=== PATIENT | male | born 1975 | race Caucasian/White ===

== ENCOUNTER 2018-10-11 20:07 | Inpatient (IN) | payer SELFPAY ==
[~2018-10-11] VITALS: Ht 185.4 cm; Wt 75.0 kg
--- NOTE | 2018-10-11 21:33 | PHYS DOC ---
Past Medical History Past Medical History: No Pertinent History (ESTELA HURST APRN) Past Surgical History: No Surgical History (ESTELA HURST APRN) Alcohol Use: Heavy Additional Information: 2 BEER A DAY Drug Use: Marijuana (ESTELA HURST APRN) Adult General Chief Complaint Chief Complaint: HAND PROBLEM HPI HPI Patient is a 42 year old male presents for evaluation of right middle finger swelling, decreased range of motion and pain for 2 days. 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 He states no high pressured airgun's used for painting. Denies any injury that he is aware of to the hand or finger. He reports the swelling has worsened over the last 24 hours and now he is unable to move the finger. He did take a callus off of the volar surface of the finger last night trying to relieve the pressure and pain. Since related of his last tetanus immunization. (ESTELA HURST APRN) Review of Systems Review of Systems Constitutional: Denies fever or chills [] Eyes: Denies change in visual acuity, redness, or eye pain [] HENT: Denies nasal congestion or sore throat [] Respiratory: Denies cough or shortness of breath [] Cardiovascular: No additional information not addressed in HPI [] GI: Denies abdominal pain, nausea, vomiting, bloody stools or diarrhea [] : Denies dysuria or hematuria [] Musculoskeletal: Denies back pain or joint pain [] Integument: Denies rash or skin lesions [] Neurologic: Denies headache, focal weakness or sensory changes [] Endocrine: Denies polyuria or polydipsia [] All other systems were reviewed and found to be within normal limits, except as documented in this note. (ESTELA HURST APRN) Current Medications Current Medications Current Medications Medications (Trade) Dose Ordered Sig/Yoshi Start Time Stop Time Status Last Admin Dose Admin Vancomycin HCl 250 ml @ 250 mls/hr 1X ONCE 10/11/18 21:45 10/11/18 22:44 UNV (DEVON LEDESMA DO) Physical Exam Physical Exam Constitutional: Well developed, well nourished, no acute distress, non-toxic appearance. [] Cardiovascular:Heart rate regular rhythm, no murmur [] Lungs & Thorax: Bilateral breath sounds clear to auscultation [] Abdomen: Bowel sounds normal, soft, no tenderness, no masses, no pulsatile masses. [] Skin: Warm, dry, no erythema, no rash. [] Back: No tenderness, no CVA tenderness. [] Extremities: Right middle finger swelling, pain, minimal range of motion, increased pain c passive ROM[] Neurologic: Alert and oriented X 3, normal motor function, normal sensory function, no focal deficits noted. [] Psychologic: Affect normal, judgement normal, mood normal. [] (ESTELA HURST APRN) Physical Exam Constitutional: Well developed, well nourished, uncomfortable, non-toxic appearance. [] Skin: Warm, dry, no erythema, no rash. [] Extremities: Significant right middle finger edema, held in flexion, exquisite tenderness on range of motion both active and passive ([facility]) Current Patient Data Vital Signs Vital Signs Date Time Temp Pulse Resp B/P (MAP) Pulse Ox O2 Delivery O2 Flow Rate FiO2 10/11/18 21:21 98.7 107 18 159/97 (117) 98 Room Air 98.7 ([facility]) Lab Values Laboratory Tests Test 10/11/18 22:00 White Blood Count 12.5 x10^3/uL (4.0-11.0) H Red Blood Count 4.71 x10^6/uL (4.30-5.70) Hemoglobin 14.4 g/dL (13.0-17.5) Hematocrit 42.9 % (39.0-53.0) Mean Corpuscular Volume 91 fL (79-100) Mean Corpuscular Hemoglobin 31 pg (25-35) Mean Corpuscular Hemoglobin Concent 34 g/dL (31-37) Red Cell Distribution Width 12.9 % (11.5-14.5) Platelet Count 347 x10^3/uL (140-400) Neutrophils (%) (Auto) 75 % (31-73) H Lymphocytes (%) (Auto) 16 % (24-48) L Monocytes (%) (Auto) 6 % (0-9) Eosinophils (%) (Auto) 1 % (0-3) Basophils (%) (Auto) 1 % (0-3) Neutrophils # (Auto) 9.4 x10^3uL (1.8-7.7) H Lymphocytes # (Auto) 2.0 x10^3/uL (1.0-4.8) Monocytes # (Auto) 0.8 x10^3/uL (0.0-1.1) Eosinophils # (Auto) 0.2 x10^3/uL (0.0-0.7) Basophils # (Auto) 0.2 x10^3/uL (0.0-0.2) Sodium Level 140 mmol/L (136-145) Potassium Level 3.6 mmol/L (3.5-5.1) Chloride Level 102 mmol/L (98-107) Carbon Dioxide Level 31 mmol/L (21-32) Anion Gap 7 (6-14) Blood Urea Nitrogen 22 mg/dL (8-26) Creatinine 1.3 mg/dL (0.7-1.3) Estimated GFR (Cockcroft-Gault) 60.2 Glucose Level 88 mg/dL (70-99) Lactic Acid Level 1.0 mmol/L (0.4-2.0) Calcium Level 9.2 mg/dL (8.5-10.1) Total Bilirubin 0.2 mg/dL (0.2-1.0) Direct Bilirubin 0.1 mg/dL (0.0-0.2) Aspartate Amino Transferase (AST) 19 U/L (15-37) Alanine Aminotransferase (ALT) 23 U/L (16-63) Alkaline Phosphatase 97 U/L (46-116) Total Protein 7.2 g/dL (6.4-8.2) Albumin 3.4 g/dL (3.4-5.0) Laboratory Tests 10/11/18 22:00 Laboratory Tests 10/11/18 22:00 Microbiology 10/11/18 Blood Culture - Preliminary, Resulted NO GROWTH AFTER 2 DAYS (DEVON LEDESMA DO) Lab Values Laboratory Tests Test 10/11/18 22:00 White Blood Count 12.5 x10^3/uL (4.0-11.0) H Red Blood Count 4.71 x10^6/uL (4.30-5.70) Hemoglobin 14.4 g/dL (13.0-17.5) Hematocrit 42.9 % (39.0-53.0) Mean Corpuscular Volume 91 fL (79-100) Mean Corpuscular Hemoglobin 31 pg (25-35) Mean Corpuscular Hemoglobin Concent 34 g/dL (31-37) Red Cell Distribution Width 12.9 % (11.5-14.5) Platelet Count 347 x10^3/uL (140-400) Neutrophils (%) (Auto) 75 % (31-73) H Lymphocytes (%) (Auto) 16 % (24-48) L Monocytes (%) (Auto) 6 % (0-9) Eosinophils (%) (Auto) 1 % (0-3) Basophils (%) (Auto) 1 % (0-3) Neutrophils # (Auto) 9.4 x10^3uL (1.8-7.7) H Lymphocytes # (Auto) 2.0 x10^3/uL (1.0-4.8) Monocytes # (Auto) 0.8 x10^3/uL (0.0-1.1) Eosinophils # (Auto) 0.2 x10^3/uL (0.0-0.7) Basophils # (Auto) 0.2 x10^3/uL (0.0-0.2) Laboratory Tests 10/11/18 22:00 (ESTELA HURST APRN) EKG EKG [] (ESTELA HURST APRN) Radiology/Procedures Radiology/Procedures [] (ESTELA HURST APRN) Radiology/Procedures PROCEDURE: HAND RIGHT 3V HAND RIGHT 3V History: RIGHT 3RD DIGIT SWELLING, PAIN X3 DAYS. NO KNOWN INJURY. There is soft tissue swelling of the third finger. No evidence of aggressive bone destruction or acute fracture. Joint spaces and alignment appear intact. IMPRESSION: No evidence of acute fracture or dislocation. Soft tissue swelling of the third finger, consider inflammatory or infectious etiology. Electronically signed by: Devon Ramos MD (10/11/2018 10:55 PM) [facility] (DEVON LEDESMA DO) Course & Med Decision Making Course & Med Decision Making Pertinent Labs and Imaging studies reviewed. (See chart for details) [Spoke with Dr. Ellington, discussed my concerns for tenosynovitis, he would like to have patient admitted to hospitalist, he will take patient to the OR tomorrow, nothing by mouth after midnight, ID consult. Patient agrees with this plan. I spoke with Dr. Olsen who accepts admission] Dr. Ledesma also examined above patient and agrees with plan of care. (ESTELA HURST APRN) Dragon Disclaimer Dragon Disclaimer This electronic medical record was generated, in whole or in part, using a voice recognition dictation system. (ESTELA HURST APRN) Departure Departure Impression: Primary Impression: Tenosynovitis of finger Disposition: ADMITTED INPATIENT Admitting Physician: Markus Trujillo (ESTELA HURST APRN) Condition: STABLE Referrals: NO PCP (PCP) Attending Signature Attending Signature I have personally interviewed and examined the patient. All charts, labs, and imaging studies were reviewed. I agree with the PA/AUTOMOTIVE ELECTRICAL HELPER's findings, exam, and plan. (DEVON LEDESMA DO) ESTELA HURST APRN Oct 11, 2018 21:33 DEVON LEDESMA DO October 14, 2018 01:42
[2018-10-11] MEDS ORDERED: VANCOMYCIN 1GM IVPB FOR OMNI 250 ML IV ONE (21:45)
[2018-10-11] MEDS ORDERED: ONDANSETRON PF 4 MG/2 ML VIAL. IV PRN (22:15)
[2018-10-11 22:16] LABS: BASO # 0.2 x10^3/uL (0.0-0.2); BASO % 1 % (0-3); EOS # 0.2 x10^3/uL (0.0-0.7); EOS % 1 % (0-3); HEMATOCRIT 42.9 % (39.0-53.0); HEMOGLOBIN 14.4 g/dL (13.0-17.5); LYMPH % 16 % (24-48); MEAN CORPUSCULAR HEMOGLOBIN 31 pg (25-35); MEAN CORPUSCULAR HGB CONC 34 g/dL (31-37); MEAN CORPUSCULAR VOLUME 91 fL (79-100); MONO # 0.8 x10^3/uL (0.0-1.1); MONO % 6 % (0-9); NEUT # 9.4 x10^3uL (1.8-7.7); NEUT % 75 % (31-73); PLATELET COUNT 347 x10^3/uL (140-400); RED BLOOD COUNT 4.71 x10^6/uL (4.30-5.70); RED CELL DISTRIBUTION WIDTH 12.9 % (11.5-14.5); WHITE BLOOD COUNT 12.5 x10^3/uL (4.0-11.0)
[2018-10-11 22:25] LABS: CALCIUM 9.2 mg/dL (8.5-10.1); CREATININE 1.3 mg/dL (0.7-1.3); GFR 60.2; POTASSIUM 3.6 mmol/L (3.5-5.1)
[2018-10-11 22:29] LABS: ALBUMIN 3.4 g/dL (3.4-5.0); DIRECT BILIRUBIN 0.1 mg/dL (0.0-0.2); TOTAL BILIRUBIN 0.2 mg/dL (0.2-1.0); TOTAL PROTEIN 7.2 g/dL (6.4-8.2)
[2018-10-11] MEDS ORDERED: cefTRIAXone IV Push 1 GM VIAL. IVP ONE (22:30)
[2018-10-11] MEDS ORDERED: MORPHINE SULFATE 4 MG/ML VIAL. IV ONE (22:30)
[2018-10-11] MEDS ORDERED: DIPHTH,PERTUSS(ACELL),TET TOX 0.5 ML DISP.SYRIN. VAX IM ONE (22:30)
--- NOTE | 2018-10-11 22:58 | RAD ---
HAND RIGHT 3V History: RIGHT 3RD DIGIT SWELLING, PAIN X3 DAYS. NO KNOWN INJURY. There is soft tissue swelling of the third finger. No evidence of aggressive bone destruction or acute fracture. Joint spaces and alignment appear intact. IMPRESSION: No evidence of acute fracture or dislocation. Soft tissue swelling of the third finger, consider inflammatory or infectious etiology. Electronically signed by: Devon Ramos MD (10/11/2018 10:55 PM) [facility]
[2018-10-11] MEDS ORDERED: VANCOMYCIN 1.75 GM in IV NORMAL SALINE 500ML BAG 500 ML IV ONE (23:00)
[2018-10-11 23:35] VITALS: BP 169/115
[2018-10-12] MEDS: MORPHINE SULFATE 4 MG/ML VIAL. IV PRN ×4 (00:32→19:26)
[2018-10-12] MEDS: VANCOMYCIN PER PHARMACY MC PRN ×2 (01:55→02:48)
--- NOTE | 2018-10-12 01:56 | NUR ---
Pharmacy Vancomycin Dosing Note S:Consulted to monitor and dose vancomycin started 10/11/18. O:SALVADOR MENDOZA is a 42 year old M with Cellulitis . Height: 6 feet, 1 inches Weight: 72.763729 kg [place] Body Weight: 79.90 Adjusted Body Weight: 77.02 Dosing Weight: Actual Other Antibiotics: LABS: Last BUN: 22 Last Creatinine: 1.3 Creatinine Clearance: 75 mL/min Last WBC: 12.5 Last Procalcitonin: Tmax (past 24 hours): Microbiology: I/O: Drug Levels: Last level: on at Last dose given 10/11/18 at 2300 Vancomycin Dosing: Loading Dose: 1750 mg x1 Dosing Weight: Actual Target Trough: 10-20 A: Based on: WT AND CRCL P: 1. Begin Vancomycin 1000 mg IV q12h 2. Follow up Trough level on 10/13/18 at 1030 3. Pharmacy will continue to monitor, follow and adjust therapy as needed. JONAH ANTUNEZ RPH, 10/12/18 0156 Signed: 10/12/18 at 0156 by JONAH ANTUNEZ RPH PHA
[2018-10-12 02:57] VITALS: BP 138/93
--- NOTE | 2018-10-12 03:59 | NUR ---
The patient, SALVADOR MENDOZA, 42 y/o, M admitted by ROCIO BELCHER MD, was given written information regarding hospital policies, unit procedures and contact persons. Valuables were checked and left with pt .
[2018-10-12 07:00] VITALS: BP 142/90
[2018-10-12] MEDS ORDERED: DEXAMETHASONE SOD PHOS 4 MG/ML VIAL ONE (10:22)
[2018-10-12] MEDS ORDERED: fentaNYL PF VIAL 100 MCG/2 ML VIAL ONE (10:22)
[2018-10-12] MEDS ORDERED: ONDANSETRON PF 4 MG/2 ML VIAL. ONE (10:22)
[2018-10-12] MEDS ORDERED: PROPOFOL 20 ML IV ONE (10:22)
[2018-10-12] MEDS ORDERED: MIDAZOLAM HCL/PF 2 MG/2 ML VIAL. ONE (10:22)
[2018-10-12 11:00] VITALS: BP 138/67
[2018-10-12] MEDS: VANCOMYCIN 1 GM in IV NORMAL SALINE 250ML 250 ML IV SCH ×2 (11:00→23:39)
--- NOTE | 2018-10-12 12:41 | PDOC1 ---
History and Physical Date of Admission Date of Admission DATE: 10/12/18 TIME: 12:41 Identification/Chief Complaint Chief Complaint SEEN IN ER, 42 year old male presents for evaluation of right middle finger swelling, decreased range of motion and pain for 2 days. 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 Denies any injury that he is aware of to the hand or finger. He reports the swelling has worsened over the last 24 hours and now he is unable to move the finger. He did take a callus off of the volar surface of the finger 10/10 Past Medical History Past Medical History Past Medical History Past Medical History Past Medical History: No Pertinent History Past Surgical History: No Surgical History Alcohol Use: Heavy Additional Information: 2 BEER A DAY Drug Use: Marijuana FAMILY HX ALCOHOL ABUSE POS SMOKES 1 PPD Past Surgical History Past Surgical History: No pertinent history Family History Family History: Alcohol Abuse Social History Smoke: 1 pack per day ALCOHOL: social Drugs: Marijuana Current Problem List Problem List Problems Medical Problems: (1) Tenosynovitis of finger Status: Acute Current Medications Current Medications Current Medications Ceftriaxone Sodium (Rocephin) 1 gm 1X ONCE IVP Last administered on 10/11/18at 22:31; Start 10/11/18 at 22:30; Stop 10/11/18 at 22:31; Status DC Vancomycin HCl 250 ml @ 250 mls/hr 1X ONCE IV ; Start 10/11/18 at 21:45; Stop 10/11/18 at 22:44; Status UNV Diphtheria/ Tetanus/Acell Pertussis (Boostrix) 0.5 ml ONCE ONCE VAX IM Last administered on 10/11/18at 22:34; Start 10/11/18 at 22:30; Stop 10/11/18 at 22:31; Status DC Morphine Sulfate (Morphine Sulfate) 4 mg 1X ONCE IV Last administered on 10/11/18at 22:31; Start 10/11/18 at 22:30; Stop 10/11/18 at 22:31; Status DC Ondansetron HCl (Zofran) 4 mg PRN Q8HRS PRN IV NAUSEA/VOMITING 1ST CHOICE Last administered on 10/11/18at 22:30; Start 10/11/18 at 22:15; Stop 10/12/18 at 22:14 Morphine Sulfate (Morphine Sulfate) 4 mg PRN Q2HR PRN IV SEVERE PAIN Last administered on 10/12/18at 09:43; Start 10/11/18 at 22:15; Stop 10/12/18 at 22:14 Vancomycin HCl 1.75 gm/Sodium Chloride 500 ml @ 250 mls/hr 1X ONCE IV Last administered on 10/11/18at 22:35; Start 10/11/18 at 23:00; Stop 10/12/18 at 00:59; Status DC Vancomycin HCl (Vanco Per Pharmacy) 1 each PRN DAILY PRN MC SEE COMMENTS Last administered on 10/12/18at 02:48; Start 10/11/18 at 22:30 Vancomycin HCl 1 gm/Sodium Chloride 250 ml @ 250 mls/hr Q12H IV Last administered on 10/12/18at 11:00; Start 10/12/18 at 11:00 Vancomycin HCl (Vancomycin Trough Level) 1 each 1X ONCE MC ; Start 10/13/18 at 10:30; Stop 10/13/18 at 10:31 Fentanyl Citrate (Fentanyl 2ml Vial) 100 mcg STK-MED ONCE .ROUTE ; Start 10/12/18 at 10:22; Stop 10/12/18 at 10:23; Status DC Midazolam HCl (Versed) 2 mg STK-MED ONCE .ROUTE ; Start 10/12/18 at 10:22; Stop 10/12/18 at 10:23; Status DC Propofol 20 ml @ As Directed STK-MED ONCE IV ; Start 10/12/18 at 10:22; Stop 10/12/18 at 10:23; Status DC Dexamethasone Sodium Phosphate (Decadron) 4 mg STK-MED ONCE .ROUTE ; Start 10/12/18 at 10:22; Stop 10/12/18 at 10:23; Status DC Ondansetron HCl (Zofran) 4 mg STK-MED ONCE .ROUTE ; Start 10/12/18 at 10:22; Stop 10/12/18 at 10:23; Status DC Allergies Allergies: Coded Allergies: No Known Drug Allergies (Unverified , 10/11/18) ROS Review of System Review of Systems Review of Systems Constitutional: Denies fever or chills [] Eyes: Denies change in visual acuity, redness, or eye pain [] HENT: Denies nasal congestion or sore throat [] Respiratory: Denies cough or shortness of breath [] Cardiovascular: No additional information not addressed in HPI [] GI: Denies abdominal pain, nausea, vomiting, bloody stools or diarrhea [] : Denies dysuria or hematuria [] Musculoskeletal: Denies back pain or joint pain [] Integument: Denies rash or skin lesions [] Neurologic: Denies headache, focal weakness or sensory changes [] Endocrine: Denies polyuria or polydipsia [] 14 PT systems were reviewed and found to be within normal limits, except as documented . Respiratory: No: Cough, Hemoptysis, Orthopnea, Pleuritic Pain, Shortness of breath, SOB with excertion, Sputum Changes, Stridor, Tachypnea, Wheezing, Other Cardiovascular: No Chest Pain, No Palpitations, No Orthopnea, No Paroxysmal Noc. Dyspnea, No Edema, No Lt Headedness, No Other Gastrointestinal: No Nausea, No Vomiting, No Abdominal Pain, No Diarrhea, No Constipation, No Melena, No Hematochezia, No Other Genitourinary: No Dysuria, No Frequency, No Incontinence, No Hematuria, No Retention, No Discharge, No Urgency, No Pain, No Flank Pain, No Other, No , No , No , No , No , No , No Musculoskeletal: Yes Joint Pain, Yes Joint Stiffness Neurological: No Behavorial Changes, No Bowel/Bladder ControlChng, No Confusion, No Dizziness, No Gait Disturbance, No Headaches, No Impaired Coord/balance, No Memory Loss, No Numbness/Tingling, No Seizures, No Speech Problems, No Tremors, No Visual Changes, No Weakness, No Other Skin: Yes Skin Lesion Changes Physical Exam Physical Exam Physical Exam Physical Exam Constitutional: Well developed, well nourished, MILD acute distress, non-toxic appearance. [] Cardiovascular:Heart rate regular rhythm, no murmur [] Lungs & Thorax: Bilateral breath sounds clear to auscultation [] Abdomen: Bowel sounds normal, soft, no tenderness, no masses, no pulsatile masses. [] Skin: Warm, dry, no erythema, no rash. [] Back: No tenderness, no CVA tenderness. [] Extremities: Right middle finger swelling, pain, minimal range of motion, increased pain c passive ROM[] Neurologic: Alert and oriented X 3, normal motor function, normal sensory function, no focal deficits noted. [] Psychologic: Affect normal, judgement normal, mood normal. [] General: Alert, Oriented X3, Cooperative, mild distress HEENT: Atraumatic, PERRLA, EOMI, Mucous membr. moist/pink Lungs: Clear to auscultation, Normal air movement Heart: S1S2, RRR, no gallops, no murmurs Breasts: Not examined Abdomen: Normal bowel sounds, Soft Rectal Exam: not examined Extremities: No cyanosis Neuro: Normal speech, Sensation intact, Cranial nerves 3-12 NL Psych/Mental Status: Mental status NL, Mood NL Vitals Vitals Vital Signs Date Time Temp Pulse Resp B/P (MAP) Pulse Ox O2 Delivery O2 Flow Rate FiO2 10/12/18 12:37 99.1 76 16 151/82 97 Room Air 99.1 Labs Labs Laboratory Tests Test 10/11/18 22:00 White Blood Count 12.5 x10^3/uL (4.0-11.0) Red Blood Count 4.71 x10^6/uL (4.30-5.70) Hemoglobin 14.4 g/dL (13.0-17.5) Hematocrit 42.9 % (39.0-53.0) Mean Corpuscular Volume 91 fL (79-100) Mean Corpuscular Hemoglobin 31 pg (25-35) Mean Corpuscular Hemoglobin Concent 34 g/dL (31-37) Red Cell Distribution Width 12.9 % (11.5-14.5) Platelet Count 347 x10^3/uL (140-400) Neutrophils (%) (Auto) 75 % (31-73) Lymphocytes (%) (Auto) 16 % (24-48) Monocytes (%) (Auto) 6 % (0-9) Eosinophils (%) (Auto) 1 % (0-3) Basophils (%) (Auto) 1 % (0-3) Neutrophils # (Auto) 9.4 x10^3uL (1.8-7.7) Lymphocytes # (Auto) 2.0 x10^3/uL (1.0-4.8) Monocytes # (Auto) 0.8 x10^3/uL (0.0-1.1) Eosinophils # (Auto) 0.2 x10^3/uL (0.0-0.7) Basophils # (Auto) 0.2 x10^3/uL (0.0-0.2) Sodium Level 140 mmol/L (136-145) Potassium Level 3.6 mmol/L (3.5-5.1) Chloride Level 102 mmol/L (98-107) Carbon Dioxide Level 31 mmol/L (21-32) Anion Gap 7 (6-14) Blood Urea Nitrogen 22 mg/dL (8-26) Creatinine 1.3 mg/dL (0.7-1.3) Estimated GFR (Cockcroft-Gault) 60.2 Glucose Level 88 mg/dL (70-99) Lactic Acid Level 1.0 mmol/L (0.4-2.0) Calcium Level 9.2 mg/dL (8.5-10.1) Total Bilirubin 0.2 mg/dL (0.2-1.0) Direct Bilirubin 0.1 mg/dL (0.0-0.2) Aspartate Amino Transf (AST/SGOT) 19 U/L (15-37) Alanine Aminotransferase (ALT/SGPT) 23 U/L (16-63) Alkaline Phosphatase 97 U/L (46-116) Total Protein 7.2 g/dL (6.4-8.2) Albumin 3.4 g/dL (3.4-5.0) Laboratory Tests Test 10/11/18 22:00 White Blood Count 12.5 x10^3/uL (4.0-11.0) Red Blood Count 4.71 x10^6/uL (4.30-5.70) Hemoglobin 14.4 g/dL (13.0-17.5) Hematocrit 42.9 % (39.0-53.0) Mean Corpuscular Volume 91 fL (79-100) Mean Corpuscular Hemoglobin 31 pg (25-35) Mean Corpuscular Hemoglobin Concent 34 g/dL (31-37) Red Cell Distribution Width 12.9 % (11.5-14.5) Platelet Count 347 x10^3/uL (140-400) Neutrophils (%) (Auto) 75 % (31-73) Lymphocytes (%) (Auto) 16 % (24-48) Monocytes (%) (Auto) 6 % (0-9) Eosinophils (%) (Auto) 1 % (0-3) Basophils (%) (Auto) 1 % (0-3) Neutrophils # (Auto) 9.4 x10^3uL (1.8-7.7) Lymphocytes # (Auto) 2.0 x10^3/uL (1.0-4.8) Monocytes # (Auto) 0.8 x10^3/uL (0.0-1.1) Eosinophils # (Auto) 0.2 x10^3/uL (0.0-0.7) Basophils # (Auto) 0.2 x10^3/uL (0.0-0.2) Sodium Level 140 mmol/L (136-145) Potassium Level 3.6 mmol/L (3.5-5.1) Chloride Level 102 mmol/L (98-107) Carbon Dioxide Level 31 mmol/L (21-32) Anion Gap 7 (6-14) Blood Urea Nitrogen 22 mg/dL (8-26) Creatinine 1.3 mg/dL (0.7-1.3) Estimated GFR (Cockcroft-Gault) 60.2 Glucose Level 88 mg/dL (70-99) Lactic Acid Level 1.0 mmol/L (0.4-2.0) Calcium Level 9.2 mg/dL (8.5-10.1) Total Bilirubin 0.2 mg/dL (0.2-1.0) Direct Bilirubin 0.1 mg/dL (0.0-0.2) Aspartate Amino Transf (AST/SGOT) 19 U/L (15-37) Alanine Aminotransferase (ALT/SGPT) 23 U/L (16-63) Alkaline Phosphatase 97 U/L (46-116) Total Protein 7.2 g/dL (6.4-8.2) Albumin 3.4 g/dL (3.4-5.0) Images Images HAND RIGHT 3V History: RIGHT 3RD DIGIT SWELLING, PAIN X3 DAYS. NO KNOWN INJURY. There is soft tissue swelling of the third finger. No evidence of aggressive bone destruction or acute fracture. Joint spaces and alignment appear intact. IMPRESSION: No evidence of acute fracture or dislocation. Soft tissue swelling of the third finger, consider inflammatory or infectious etiology. Electronically signed by: Devon Ramos MD (10/11/2018 10:55 PM) [facility] VTE Prophylaxis Ordered VTE Prophylaxis Devices: Yes VTE Pharmacological Prophylaxi: Yes Assessment/Plan Assessment/Plan IMPRESSION Acute tenosynovitis No evidence of acute fracture or dislocation. Soft tissue swelling of the third finger, consider inflammatory or infectious etiology. tobacco abuse ALCOHOL ABUSE HX plan iv antibiotics ortho consult npo iv vancomycin iv rocephin ID CONSULT IV FLUID SUPPORT ALCOHOL WITHDRAWAL PRECAUTIONS low risk for post-op complications dvt prophylaxis 76 MIN PT EXAM, CHART REVIEW, > 50% OF TIME SPENT WITH EXAM, CHART REVIEW, PT CARE CFOORDINATION ROCIO BELCHER MD Oct 12, 2018 12:41
[2018-10-12] MEDS ORDERED: IV RINGERS,LACTATED 1000ML 1,000 ML IV SCH (12:50)
[2018-10-12] MEDS ORDERED: HYDROmorphone 2 MG/ML VIAL IV PRN (13:00)
[2018-10-12] MEDS ORDERED: fentaNYL PF VIAL 100 MCG/2 ML VIAL IV PRN ×2 (13:00)
[2018-10-12] MEDS ORDERED: ONDANSETRON PF 4 MG/2 ML VIAL. IV PRN (13:00)
[2018-10-12] MEDS ORDERED: PROCHLORPERAZINE 10 MG/2 ML VIAL. IV PRN (13:00)
[2018-10-12] MEDS ORDERED: LORazepam 1 MG TABLET PO SCH (13:00)
[2018-10-12] MEDS: MULTIVIT INFUSN,ADULT 4,VIT K 10 ML, THIAMINE INJ 100 MG, FOLIC ACID INJ 1 MG in IV NOR... IV SCH (14:00)
[2018-10-12] MEDS: MORPHINE SULFATE 2 MG/ML VIAL. IV PRN ×2 (14:32→14:41)
--- NOTE | 2018-10-12 16:31 | PDOC4 ---
Operative Note Operative Note Date of surgery: 10/12/2018 Preoperative diagnosis: Flexor tenosynovitis right middle finger Postoperative diagnosis: Same Operative procedure: Irrigation debridement right middle finger flexor tenosynovitis Surgeon: Rakel Anesthesia: Gen. Estimated blood loss: Less than 5 mL Locations: None Intraoperative cultures sent from flexor tendon purulent drainage Operative indications: Please see my preoperative consultation for detailed operative indications. Operative text: Patient was identified procedure verified patient placed in the supine position on the operating table. After adequate amounts of general anesthesia were administered the right upper extremity was prepped and draped in standard sterile fashion on a hand table. After timeout was performed patient procedure identified and verified and incision was made in the proximal palmar crease overlying the right middle finger flexor tendon sheath which was opened and purulent drainage expressed and cultured. A1 nishant was then released and any purulent drainage suctioned away. An oblique incision was made over the middle phalange and flexor tendon sheath was opened to allow a Jelco 16-gauge IV to irrigate the flexor tendon sheath under pressure with a total of several 60 mL cc syringe. Normal saline solution until area came back non-cloudy. Irrigation was carried out distally as well to involve the entire flexor tendon sheath which was noted to move fully. Further thorough irrigation carried out of both sites with normal saline solution leading points controlled by electrocautery iodoform packing was placed after loose closure accomplished with 3-0 nylon suture at both sites. Sterile dressings were applied patient was returned to recovery room in stable condition having tolerated procedure well SHON GARY MD Oct 12, 2018 16:31
[2018-10-12 19:00] VITALS: BP 122/80
[2018-10-12 19:59] LABS: ALBUMIN 3.1 g/dL (3.4-5.0); DIRECT BILIRUBIN 0.1 mg/dL (0.0-0.2); TOTAL BILIRUBIN 0.4 mg/dL (0.2-1.0); TOTAL PROTEIN 7.4 g/dL (6.4-8.2)
[2018-10-12 23:00] VITALS: BP 137/97
[2018-10-12] MEDS ORDERED: diphenhydrAMINE HCL 25 MG CAPSULE PO PRN (23:15)
[2018-10-12] MEDS: QUEtiapine 25 MG TABLET. PO PRN (23:37)
--- NOTE | 2018-10-13 00:09 | NUR ---
At approximally 2230 pt began to cough and become highly agitated. Stated "not work a fuck" when asked how he was doing. Called physician to incite [facility] protocol. Pt drinks 2 drinks daily after work and says on off days the number is much higher. Ativan and quetiapine were administered. Pt is resting in bed and sleeping. Will continue to monitor.
--- NOTE | 2018-10-13 00:46 | CONS ---
DATE OF CONSULTATION: 10/12/2018 CHIEF COMPLAINT: Right hand infection, long finger stiffness. REQUESTING PHYSICIAN: Dr. Markus Olsen. 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 He does manual labor in painting. Denies any specific injury to the right long finger, but reports increased swelling, pressure and pain and is unable to move the finger. He denies painting with any high pressure equipment or possible injection injury. He has calluses on his finger and did take a callus off the volar surface of the finger to try to relieve his pressure and pain, but it did not work. He therefore presents to the Emergency Department and hospital admission for further evaluation and treatment. Denies any pertinent past medical history or surgical history. SOCIAL HISTORY: Indicates heavy use of alcohol. Has used marijuana in the past. Otherwise, really does not smoke cigarettes. ALLERGIES: He has no known allergies. MEDICATIONS: No medications. FAMILY HISTORY: Unknown. REVIEW OF SYSTEMS: Denies any fever, chills or other pain other than in the right long finger over the past couple of days. No constitutional symptoms. PHYSICAL EXAMINATION: HEENT: Atraumatic, normocephalic. EXTREMITIES: Examination of the right upper extremity reveals severe swelling, pain and inability to move his long finger at all. It is swollen up like a sausage digit. He is very tender over the flexor tendon sheath, not over the extensor surface. Distal sensation is intact as is his capillary refill to all the fingers. Flexor profundus superficialis are intact to all the other fingers and thumb. Normal examination of the contralateral hand aside from calluses over the volar surface of both hands from his manual labor. Normal alignment, stability of bilateral shoulders and elbows. IMPRESSION: Flexor tenosynovitis, right long finger. TREATMENT PLAN: He was admitted through the Emergency Room last night and had just eaten prior to admission, was kept n.p.o. overnight, given antibiotics and Infectious Disease consult pending. I went over with him the concern for quickly potentially spreading infection in the flexor tendon sheath and the need to open this up surgically, wash it out, get him on appropriate antibiotics, cultures and make sure this is going in the right direction to avoid it spreading and getting worse. He is aware that this may cause him an ongoing pain and stiffness due to scarring in the tendon sheath because of the problems with infection and it may require even multiple operations if he is not responding immediately to the initial washout and antibiotics. All his questions were answered. We are going to proceed with surgical evaluation and treatment, which will occur as soon as operating room availability this morning. SHON GARY MD DR: KOBE/sara JOB#: [id number] / [id number]
--- NOTE | 2018-10-13 01:58 | CONS ---
DATE OF CONSULTATION: 10/12/2018 REQUESTING PHYSICIAN: Markus Olsen M.D. REASON FOR CONSULTATION: Tenosynovitis. HISTORY OF PRESENT ILLNESS: This is a 42-year-old gentleman who came in with right middle finger swelling and pain that started about 2-3 days ago. 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 The patient denies any fever. Denies any nausea, vomiting, diarrhea, chest pain, shortness of breath, abdominal pain, urinary symptoms or bowel symptoms. PAST MEDICAL HISTORY: Unremarkable, he says. SOCIAL HISTORY: Positive for smoking, positive for alcohol use. No drug use. ALLERGIES: No known drug allergies. CURRENT MEDICATIONS: Reviewed. REVIEW OF SYSTEMS: As per HPI; all other systems reviewed are negative. PHYSICAL EXAMINATION: GENERAL: Alert, oriented gentleman, not in any distress. VITAL SIGNS: Stable, afebrile. HEENT: NAD. NECK: Supple. No JVP, no lymphadenopathy. LUNGS: Clear. HEART: S1, S2 regular. ABDOMEN: Benign. EXTREMITIES: The patient does have green discoloration of the fingers. The middle finger is swollen and extremely tender. There is very mild pain into the palmar surface of the hand with extension of the finger. There is no pus pointing. There is no obvious open area or drainage. LABORATORY DATA: Unable to review because computers are down. IMPRESSION: 1. Right middle finger swelling and pain with infection. 2. Tenosynovitis. 3. . RECOMMENDATIONS: We would continue antibiotics for the time being. Dictation is limited by inability to see anything in the computer right now. I and D has been planned. Thank you very much, Dr. Olsen, for giving me the opportunity to participate in this patient's care. CHACORTA DIAZ MD DR: ROBIN/sara JOB#: [id number] / [id number]
[2018-10-13 07:00] VITALS: BP 139/97
[2018-10-13] MEDS: MULTIVIT INFUSN,ADULT 4,VIT K 10 ML, THIAMINE INJ 100 MG, FOLIC ACID INJ 1 MG in IV NOR... IV SCH (09:00)
[2018-10-13] MEDS ORDERED: FOLIC ACID 1 MG TABLET. PO SCH (09:00)
[2018-10-13 09:33] LABS: CREATININE 1.2 mg/dL (0.7-1.3); GFR 66.1
--- NOTE | 2018-10-13 10:41 | PDOC ---
PROGRESS NOTES History of Present Illness History of Present Illness VTE Prophylaxis Ordered VTE Prophylaxis Devices: Yes VTE Pharmacological Prophylaxi: Yes Assessment/Plan Assessment/Plan IMPRESSION Acute tenosynovitis No evidence of acute fracture or dislocation. Soft tissue swelling of the third finger, consider inflammatory or infectious etiology. tobacco abuse ALCOHOL ABUSE HX plan iv antibiotics ortho consult npo iv vancomycin iv rocephin ID CONSULT IV FLUID SUPPORT ALCOHOL WITHDRAWAL PRECAUTIONS low risk for post-op complications dvt prophylaxis 46 MIN PT EXAM, CHART REVIEW, > 50% OF TIME SPENT WITH EXAM, CHART REVIEW, PT CARE COORDINATION Vitals Vitals Vital Signs Date Time Temp Pulse Resp B/P (MAP) Pulse Ox O2 Delivery O2 Flow Rate FiO2 10/13/18 07:00 98.8 87 20 139/97 (111) 95 Room Air 98.8 10/12/18 13:52 10 Physical Exam General: Alert, Oriented X3, Cooperative, mild distress Heart: Regular rate, Normal S1, Normal S2, No murmurs Lungs: Clear Abdomen: Normal bowel sounds, Soft Extremities: No cyanosis Skin: No significant lesion Labs LABS PATIENT: SALVADOR MENDOZA ACCT: [id number] LOC: [address] [place] [address] U: [id number] AGE/SX: 42/M ROOM: [facility] RE10/11/[address]: ROCIO BELCHER MD : 1975 BED: 1 DIS: STATUS: ADM IN TLOC: SPEC #: [id number] SABRA: 10/11/18 STATUS: RES REQ #: [id number] RECD: 10/11/[address]: ESTELA HURST APRN SOURCE: BLOOD ENTR: 10/11/[address]: JOSE,STAFF [facility]: NO PCP ORDERED: BCULT Procedure Result BLOOD CULTURE Preliminary NO GROWTH AFTER 1 DAY Laboratory Tests Test 10/12/18 16:35 10/13/18 08:45 Total Bilirubin 0.4 mg/dL (0.2-1.0) Direct Bilirubin 0.1 mg/dL (0.0-0.2) Aspartate Amino Transf (AST/SGOT) 15 U/L (15-37) Alanine Aminotransferase (ALT/SGPT) 20 U/L (16-63) Alkaline Phosphatase 86 U/L (46-116) Total Protein 7.4 g/dL (6.4-8.2) Albumin 3.1 g/dL (3.4-5.0) Creatinine 1.2 mg/dL (0.7-1.3) Estimated GFR (Cockcroft-Gault) 66.1 Assessment and Plan Assessmemt and Plan Problems Medical Problems: (1) Tenosynovitis of finger Status: Acute Operative Note Operative Note Operative Note Date of surgery: 10/12/2018 Preoperative diagnosis: Flexor tenosynovitis right middle finger Postoperative diagnosis: Same Operative procedure: Irrigation debridement right middle finger flexor tenosynovitis Surgeon: Rakel Anesthesia: Gen. Estimated blood loss: Less than 5 mL Locations: None Intraoperative cultures sent from flexor tendon purulent drainage Comment Review of Relevant I have reviewed the following items rony (where applicable) has been applied. Labs Laboratory Tests Test 10/11/18 22:00 10/12/18 16:35 10/13/18 08:45 White Blood Count 12.5 x10^3/uL (4.0-11.0) Red Blood Count 4.71 x10^6/uL (4.30-5.70) Hemoglobin 14.4 g/dL (13.0-17.5) Hematocrit 42.9 % (39.0-53.0) Mean Corpuscular Volume 91 fL (79-100) Mean Corpuscular Hemoglobin 31 pg (25-35) Mean Corpuscular Hemoglobin Concent 34 g/dL (31-37) Red Cell Distribution Width 12.9 % (11.5-14.5) Platelet Count 347 x10^3/uL (140-400) Neutrophils (%) (Auto) 75 % (31-73) Lymphocytes (%) (Auto) 16 % (24-48) Monocytes (%) (Auto) 6 % (0-9) Eosinophils (%) (Auto) 1 % (0-3) Basophils (%) (Auto) 1 % (0-3) Neutrophils # (Auto) 9.4 x10^3uL (1.8-7.7) Lymphocytes # (Auto) 2.0 x10^3/uL (1.0-4.8) Monocytes # (Auto) 0.8 x10^3/uL (0.0-1.1) Eosinophils # (Auto) 0.2 x10^3/uL (0.0-0.7) Basophils # (Auto) 0.2 x10^3/uL (0.0-0.2) Sodium Level 140 mmol/L (136-145) Potassium Level 3.6 mmol/L (3.5-5.1) Chloride Level 102 mmol/L (98-107) Carbon Dioxide Level 31 mmol/L (21-32) Anion Gap 7 (6-14) Blood Urea Nitrogen 22 mg/dL (8-26) Creatinine 1.3 mg/dL (0.7-1.3) 1.2 mg/dL (0.7-1.3) Estimated GFR (Cockcroft-Gault) 60.2 66.1 Glucose Level 88 mg/dL (70-99) Lactic Acid Level 1.0 mmol/L (0.4-2.0) Calcium Level 9.2 mg/dL (8.5-10.1) Total Bilirubin 0.2 mg/dL (0.2-1.0) 0.4 mg/dL (0.2-1.0) Direct Bilirubin 0.1 mg/dL (0.0-0.2) 0.1 mg/dL (0.0-0.2) Aspartate Amino Transf (AST/SGOT) 19 U/L (15-37) 15 U/L (15-37) Alanine Aminotransferase (ALT/SGPT) 23 U/L (16-63) 20 U/L (16-63) Alkaline Phosphatase 97 U/L (46-116) 86 U/L (46-116) Total Protein 7.2 g/dL (6.4-8.2) 7.4 g/dL (6.4-8.2) Albumin 3.4 g/dL (3.4-5.0) 3.1 g/dL (3.4-5.0) Laboratory Tests Test 10/12/18 16:35 10/13/18 08:45 Total Bilirubin 0.4 mg/dL (0.2-1.0) Direct Bilirubin 0.1 mg/dL (0.0-0.2) Aspartate Amino Transf (AST/SGOT) 15 U/L (15-37) Alanine Aminotransferase (ALT/SGPT) 20 U/L (16-63) Alkaline Phosphatase 86 U/L (46-116) Total Protein 7.4 g/dL (6.4-8.2) Albumin 3.1 g/dL (3.4-5.0) Creatinine 1.2 mg/dL (0.7-1.3) Estimated GFR (Cockcroft-Gault) 66.1 Microbiology 10/11/18 Blood Culture - Preliminary, Resulted NO GROWTH AFTER 1 DAY Medications Current Medications Ceftriaxone Sodium (Rocephin) 1 gm 1X ONCE IVP Last administered on 10/11/18at 22:31; Start 10/11/18 at 22:30; Stop 10/11/18 at 22:31; Status DC Vancomycin HCl 250 ml @ 250 mls/hr 1X ONCE IV ; Start 10/11/18 at 21:45; Stop 10/11/18 at 22:44; Status UNV Diphtheria/ Tetanus/Acell Pertussis (Boostrix) 0.5 ml ONCE ONCE VAX IM Last administered on 10/11/18at 22:34; Start 10/11/18 at 22:30; Stop 10/11/18 at 22:31; Status DC Morphine Sulfate (Morphine Sulfate) 4 mg 1X ONCE IV Last administered on 10/11/18at 22:31; Start 10/11/18 at 22:30; Stop 10/11/18 at 22:31; Status DC Ondansetron HCl (Zofran) 4 mg PRN Q8HRS PRN IV NAUSEA/VOMITING 1ST CHOICE Last administered on 10/11/18at 22:30; Start 10/11/18 at 22:15; Stop 10/12/18 at 22:14; Status DC Morphine Sulfate (Morphine Sulfate) 4 mg PRN Q2HR PRN IV SEVERE PAIN Last administered on 10/12/18at 19:26; Start 10/11/18 at 22:15; Stop 10/12/18 at 22:14; Status DC Vancomycin HCl 1.75 gm/Sodium Chloride 500 ml @ 250 mls/hr 1X ONCE IV Last administered on 10/11/18at 22:35; Start 10/11/18 at 23:00; Stop 10/12/18 at 00:59; Status DC Vancomycin HCl (Vanco Per Pharmacy) 1 each PRN DAILY PRN MC SEE COMMENTS Last administered on 10/12/18at 02:48; Start 10/11/18 at 22:30 Vancomycin HCl 1 gm/Sodium Chloride 250 ml @ 250 mls/hr Q12H IV Last administered on 10/12/18at 23:39; Start 10/12/18 at 11:00 Vancomycin HCl (Vancomycin Trough Level) 1 each 1X ONCE MC ; Start 10/13/18 at 10:30; Stop 10/13/18 at 10:31; Status DC Fentanyl Citrate (Fentanyl 2ml Vial) 100 mcg STK-MED ONCE .ROUTE ; Start 10/12/18 at 10:22; Stop 10/12/18 at 10:23; Status DC Midazolam HCl (Versed) 2 mg STK-MED ONCE .ROUTE ; Start 10/12/18 at 10:22; Stop 10/12/18 at 10:23; Status DC Propofol 20 ml @ As Directed STK-MED ONCE IV ; Start 10/12/18 at 10:22; Stop 10/12/18 at 10:23; Status DC Dexamethasone Sodium Phosphate (Decadron) 4 mg STK-MED ONCE .ROUTE ; Start 10/12/18 at 10:22; Stop 10/12/18 at 10:23; Status DC Ondansetron HCl (Zofran) 4 mg STK-MED ONCE .ROUTE ; Start 10/12/18 at 10:22; Stop 10/12/18 at 10:23; Status DC Ondansetron HCl (Zofran) 4 mg PRN Q6HRS PRN IV NAUSEA/VOMITING; Start 10/12/18 at 13:00; Stop 10/13/18 at 12:59 Fentanyl Citrate (Fentanyl 2ml Vial) 25 mcg PRN Q5MIN PRN IV MILD PAIN; Start 10/12/18 at 13:00; Stop 10/13/18 at 12:59 Fentanyl Citrate (Fentanyl 2ml Vial) 50 mcg PRN Q5MIN PRN IV MODERATE TO SEVERE PAIN; Start 10/12/18 at 13:00; Stop 10/13/18 at 12:59 Morphine Sulfate (Morphine Sulfate) 1 mg PRN Q10MIN PRN IV SEVERE PAIN Last administered on 10/12/18at 14:41; Start 10/12/18 at 13:00; Stop 10/13/18 at 12:59 Ringer's Solution 1,000 ml @ 30 mls/hr Q24H IV ; Start 10/12/18 at 12:50; Stop 10/13/18 at 00:49; Status DC Hydromorphone HCl (Dilaudid) 0.5 mg PRN Q10MIN PRN IV SEV PAIN, Second choice; Start 10/12/18 at 13:00; Stop 10/13/18 at 12:59 Prochlorperazine Edisylate (Compazine) 5 mg PACU PRN PRN IV NAUSEA, MRX1; Start 10/12/18 at 13:00; Stop 10/13/18 at 12:59 Multivitamins 10 ml/Thiamine HCl 100 mg/Folic Acid 1 mg/Sodium Chloride 1,011.2 ml @ 100 mls/ hr DAILY IV Last administered on 10/12/18at 14:00; Start 10/12/18 at 14:00; Stop 10/16/18 at 19:07 Folic Acid (Folic Acid) 1 mg DAILY PO ; Start 10/13/18 at 09:00; Status UNV Lorazepam (Ativan) 2 mg Q6H PO Last administered on 10/12/18at 13:00; Start 10/12/18 at 13:00; Stop 10/13/18 at 00:32; Status DC Lorazepam (Ativan) 2 mg PRN Q1HR PRN IV For CIWA 8-14 Last administered on 10/12/18at 23:38; Start 10/12/18 at 23:15 Lorazepam (Ativan) 4 mg PRN Q1HR PRN IV For CIWA 15 or greater; Start 10/12/18 at 23:15 Diphenhydramine HCl (Benadryl) 25 mg PRN Q6HRS PRN PO ITCHING; Start 10/12/18 at 23:15 Quetiapine Fumarate (SEROquel) 50 mg PRN QHS PRN PO sleep Last administered on 10/12/18at 23:37; Start 10/12/18 at 23:15 Morphine Sulfate (Morphine Sulfate) 4 mg PRN Q2HR PRN IV SEVERE PAIN; Start 10/13/18 at 06:15 Oxycodone/ Acetaminophen (Percocet 5/325) 1 tab PRN Q4HRS PRN PO SEVERE PAIN; Start 10/13/18 at 06:15 Vitals/I & O Vital Sign - Last 24 Hours 10/12/18 10/12/18 10/12/18 10/12/18 11:00 12:37 13:37 13:37 Temp 97.8 99.1 98.6 97.8 99.1 98.6 Pulse 71 76 84 Resp 16 16 20 B/P (MAP) 138/67 (90) 151/82 115/74 Pulse Ox 100 97 99 O2 Delivery Room Air Room Air Mask Simple Mask O2 Flow Rate 10 10 10/12/18 10/12/18 10/12/18 10/12/18 13:52 14:07 14:12 14:27 Pulse 77 77 71 78 Resp 20 20 20 20 B/P (MAP) 105/66 106/65 149/97 147/79 Pulse Ox 95 95 100 96 O2 Delivery Simple Mask Room Air Room Air Room Air O2 Flow Rate 10 10/12/18 10/12/18 10/12/18 10/12/18 14:32 14:41 15:15 19:00 Temp 99.4 99.4 Pulse 95 Resp 20 20 19 20 B/P (MAP) 122/80 (94) Pulse Ox 96 98 93 95 O2 Delivery Room Air Room Air Room Air 10/12/18 10/12/18 10/12/18 10/12/18 19:26 19:56 20:00 23:00 Temp 98.6 98.6 Pulse 87 Resp 16 16 18 B/P (MAP) 137/97 (110) Pulse Ox 91 O2 Delivery Room Air Room Air 10/13/18 10/13/18 03:00 07:00 Temp 98.8 98.8 Pulse 87 Resp 20 B/P (MAP) 139/97 (111) Pulse Ox 95 O2 Delivery Room Air Intake and Output 10/12/18 10/12/18 10/13/18 14:59 22:59 06:59 Intake Total 1290 ml 240 ml 370 ml Output Total 10 ml Balance 1280 ml 240 ml 370 ml ROCIO BELCHER MD October 13, 2018 10:41
[2018-10-13 10:50] LABS: VANC TR 6.6 mcg/mL (10.0-20.0)
[2018-10-13 11:00] VITALS: BP 153/98
[2018-10-13] MEDS: VANCOMYCIN 1 GM in IV NORMAL SALINE 250ML 250 ML IV SCH ×2 (11:00→20:27)
[2018-10-13 11:01] LABS: BASO # 0.1 x10^3/uL (0.0-0.2); BASO % 0 % (0-3); EOS # 0.1 x10^3/uL (0.0-0.7); EOS % 1 % (0-3); HEMATOCRIT 40.5 % (39.0-53.0); HEMOGLOBIN 13.3 g/dL (13.0-17.5); LYMPH # 2.1 x10^3/uL (1.0-4.8); LYMPH % 15 % (24-48); MEAN CORPUSCULAR HEMOGLOBIN 30 pg (25-35); MEAN CORPUSCULAR HGB CONC 33 g/dL (31-37); MEAN CORPUSCULAR VOLUME 92 fL (79-100); MONO # 0.9 x10^3/uL (0.0-1.1); MONO % 7 % (0-9); NEUT # 10.8 x10^3uL (1.8-7.7); NEUT % 78 % (31-73); PLATELET COUNT 258 x10^3/uL (140-400); RED BLOOD COUNT 4.39 x10^6/uL (4.30-5.70); RED CELL DISTRIBUTION WIDTH 13.2 % (11.5-14.5); WHITE BLOOD COUNT 13.9 x10^3/uL (4.0-11.0)
[2018-10-13] MEDS: VANCOMYCIN PER PHARMACY MC PRN (11:06)
--- NOTE | 2018-10-13 11:06 | NUR ---
Pharmacy Vancomycin Dosing Note S: Consulted to monitor and dose vancomycin started 10/11/18. O: SALVADOR MENDOZA is a 42 year old M with cellulitis, tenosynovitis. Other Antibiotics: CTX 1g IV q24hrs LABS: Last BUN: 22 Last Creatinine: 1.2 Creatinine Clearance: 80 mL/min Last WBC: 12.5 Last Procalcitonin: - Tmax (past 24 hours): 99.4 Microbiology: BLOOD CX (10/11): NGTD I/O: 1900/output not documented; 6 voids Drug Levels: Last level: 6.6 on 10/13/18 at 1030 Last dose given 10/12/18 at 2330 Vancomycin Dosing: Dosing Weight: Actual Target Trough: 10-20 A: Patient was receiving vancomycin 1000 mg IV q12hrs. A trough of 6.6 mcg/ml is below goal range of 10-20. Patient's renal function remains stable, MD has ordered for repeat SCr to be drawn tomorrow. P: 1. Initiate Vancomycin 1250 mg IV x 1 dose, then 1000 mg IV q8h 2. Follow up trough if significant changes occur 3. Pharmacy will continue to monitor, follow and adjust therapy as needed. RAUL KLINE [facility], 10/13/18 [id number]
--- NOTE | 2018-10-13 11:26 | PDOC ---
Infectious Disease Note Subjective Subjective pt is sleepy ROS ROS no n/v/d/sob Vital Sign Vital Signs Vital Signs Date Time Temp Pulse Resp B/P (MAP) Pulse Ox O2 Delivery O2 Flow Rate FiO2 10/13/18 08:00 Room Air 10/13/18 07:00 98.8 87 20 139/97 (111) 95 98.8 10/12/18 13:52 10 Physical Exam PHYSICAL EXAM GENERAL: Alert, oriented gentleman, not in any distress. VITAL SIGNS: Stable, afebrile. HEENT: NAD. NECK: Supple. No JVP, no lymphadenopathy. LUNGS: Clear. HEART: S1, S2 regular. ABDOMEN: Benign. EXTREMITIES: The patient does have green discoloration of the fingers. The middle finger is swollen and extremely tender. There is very mild pain into the palmar surface of the hand with extension of the finger. There is no pus pointing. There is no obvious open area or drainage. Labs Lab Laboratory Tests Test 10/12/18 16:35 10/13/18 08:45 10/13/18 10:15 Total Bilirubin 0.4 mg/dL (0.2-1.0) Direct Bilirubin 0.1 mg/dL (0.0-0.2) Aspartate Amino Transf (AST/SGOT) 15 U/L (15-37) Alanine Aminotransferase (ALT/SGPT) 20 U/L (16-63) Alkaline Phosphatase 86 U/L (46-116) Total Protein 7.4 g/dL (6.4-8.2) Albumin 3.1 g/dL (3.4-5.0) White Blood Count 13.9 x10^3/uL (4.0-11.0) Red Blood Count 4.39 x10^6/uL (4.30-5.70) Hemoglobin 13.3 g/dL (13.0-17.5) Hematocrit 40.5 % (39.0-53.0) Mean Corpuscular Volume 92 fL (79-100) Mean Corpuscular Hemoglobin 30 pg (25-35) Mean Corpuscular Hemoglobin Concent 33 g/dL (31-37) Red Cell Distribution Width 13.2 % (11.5-14.5) Platelet Count 258 x10^3/uL (140-400) Neutrophils (%) (Auto) 78 % (31-73) Lymphocytes (%) (Auto) 15 % (24-48) Monocytes (%) (Auto) 7 % (0-9) Eosinophils (%) (Auto) 1 % (0-3) Basophils (%) (Auto) 0 % (0-3) Neutrophils # (Auto) 10.8 x10^3uL (1.8-7.7) Lymphocytes # (Auto) 2.1 x10^3/uL (1.0-4.8) Monocytes # (Auto) 0.9 x10^3/uL (0.0-1.1) Eosinophils # (Auto) 0.1 x10^3/uL (0.0-0.7) Basophils # (Auto) 0.1 x10^3/uL (0.0-0.2) Creatinine 1.2 mg/dL (0.7-1.3) Estimated GFR (Cockcroft-Gault) 66.1 Vancomycin Level Trough 6.6 mcg/mL (10.0-20.0) Vancomycin Last Dose Date 10/12/18 Vancomycin Last Dose Time 2300 Micro Microbiology 10/11/18 Blood Culture - Preliminary, Resulted NO GROWTH AFTER 1 DAY Objective Assessment 1. Right middle finger swelling and pain with infection. s/p I and D on 10/12 2. Tenosynovitis. 3. Rt middle finger cellulitis/abscess. Plan Plan of Care cont antibiotics check cultures CHACORTA DIAZ MD October 13, 2018 11:26
[2018-10-13] MEDS ORDERED: VANCOMYCIN 1.25 GM in IV NORMAL SALINE 250ML 250 ML IV ONE (12:00)
[2018-10-13] MEDS: cefTRIAXone IV Push 1 GM VIAL. IVP SCH (12:08)
[2018-10-13] MEDS: THIAMINE 100 MG TABLET. PO SCH (12:54)
[2018-10-13] MEDS: FOLIC ACID 1 MG TABLET. PO SCH (12:54)
[2018-10-13] MEDS: MORPHINE SULFATE 4 MG/ML VIAL. IV PRN ×2 (12:55→20:29)
[2018-10-13 15:00] VITALS: BP 143/100
[2018-10-13 19:00] VITALS: BP 140/100
[2018-10-13 23:00] VITALS: BP 142/106
[2018-10-14 03:00] VITALS: BP 141/100
[2018-10-14] MEDS: VANCOMYCIN 1 GM in IV NORMAL SALINE 250ML 250 ML IV SCH ×3 (03:30→20:25)
[2018-10-14 04:35] LABS: BASO # 0.1 x10^3/uL (0.0-0.2); BASO % 1 % (0-3); EOS # 0.2 x10^3/uL (0.0-0.7); EOS % 1 % (0-3); HEMATOCRIT 43.5 % (39.0-53.0); HEMOGLOBIN 14.4 g/dL (13.0-17.5); LYMPH % 15 % (24-48); MEAN CORPUSCULAR HEMOGLOBIN 30 pg (25-35); MEAN CORPUSCULAR HGB CONC 33 g/dL (31-37); MEAN CORPUSCULAR VOLUME 92 fL (79-100); MONO # 0.9 x10^3/uL (0.0-1.1); MONO % 6 % (0-9); NEUT # 10.1 x10^3uL (1.8-7.7); NEUT % 77 % (31-73); PLATELET COUNT 371 x10^3/uL (140-400); RED BLOOD COUNT 4.75 x10^6/uL (4.30-5.70); RED CELL DISTRIBUTION WIDTH 12.8 % (11.5-14.5); WHITE BLOOD COUNT 13.2 x10^3/uL (4.0-11.0)
[2018-10-14 04:55] LABS: CALCIUM 9.5 mg/dL (8.5-10.1); GFR 81.6; POTASSIUM 3.9 mmol/L (3.5-5.1)
[2018-10-14 07:00] VITALS: BP 143/96
[2018-10-14] MEDS: THIAMINE 100 MG TABLET. PO SCH (09:05)
[2018-10-14] MEDS: FOLIC ACID 1 MG TABLET. PO SCH (09:05)
[2018-10-14] MEDS: MORPHINE SULFATE 4 MG/ML VIAL. IV PRN ×4 (09:06→23:24)
--- NOTE | 2018-10-14 10:02 | PDOC ---
PROGRESS NOTES History of Present Illness History of Present Illness VTE Prophylaxis Ordered VTE Prophylaxis Devices: Yes VTE Pharmacological Prophylaxi: Yes Assessment/Plan Assessment/Plan IMPRESSION Acute tenosynovitis No evidence of acute fracture or dislocation. Soft tissue swelling of the third finger, consider inflammatory or infectious etiology. tobacco abuse ALCOHOL ABUSE HX plan iv antibiotics ortho consult npo iv vancomycin iv rocephin ID CONSULT IV FLUID SUPPORT ALCOHOL WITHDRAWAL PRECAUTIONS low risk for post-op complications dvt prophylaxis 46 MIN PT EXAM, CHART REVIEW, > 50% OF TIME SPENT WITH EXAM, CHART REVIEW, PT CARE COORDINATION Vitals Vitals Vital Signs Date Time Temp Pulse Resp B/P (MAP) Pulse Ox O2 Delivery O2 Flow Rate FiO2 10/14/18 09:39 Room Air 10/14/18 07:00 98.4 98 20 143/96 (112) 97 98.4 Physical Exam Physical Exam GENERAL: Alert, oriented gentleman, not in any distress. VITAL SIGNS: Stable, afebrile. HEENT: NAD. NECK: Supple. No JVP, no lymphadenopathy. LUNGS: Clear. HEART: S1, S2 regular. ABDOMEN: Benign. EXTREMITIES: The patient does have green discoloration of the fingers. The middle finger is swollen and extremely tender. There is very mild pain into the palmar surface of the hand with extension of the finger. There is no pus pointing. There is no obvious open area or drainage. General: Alert, Oriented X3, Cooperative, mild distress Heart: Regular rate, Normal S1, Normal S2, No murmurs Lungs: Clear Abdomen: Normal bowel sounds, Soft Extremities: No cyanosis Skin: No significant lesion Labs LABS Laboratory Tests Test 10/13/18 10:15 10/14/18 04:00 Vancomycin Level Trough 6.6 mcg/mL (10.0-20.0) Vancomycin Last Dose Date 10/12/18 Vancomycin Last Dose Time 2300 White Blood Count 13.2 x10^3/uL (4.0-11.0) Red Blood Count 4.75 x10^6/uL (4.30-5.70) Hemoglobin 14.4 g/dL (13.0-17.5) Hematocrit 43.5 % (39.0-53.0) Mean Corpuscular Volume 92 fL (79-100) Mean Corpuscular Hemoglobin 30 pg (25-35) Mean Corpuscular Hemoglobin Concent 33 g/dL (31-37) Red Cell Distribution Width 12.8 % (11.5-14.5) Platelet Count 371 x10^3/uL (140-400) Neutrophils (%) (Auto) 77 % (31-73) Lymphocytes (%) (Auto) 15 % (24-48) Monocytes (%) (Auto) 6 % (0-9) Eosinophils (%) (Auto) 1 % (0-3) Basophils (%) (Auto) 1 % (0-3) Neutrophils # (Auto) 10.1 x10^3uL (1.8-7.7) Lymphocytes # (Auto) 2.0 x10^3/uL (1.0-4.8) Monocytes # (Auto) 0.9 x10^3/uL (0.0-1.1) Eosinophils # (Auto) 0.2 x10^3/uL (0.0-0.7) Basophils # (Auto) 0.1 x10^3/uL (0.0-0.2) Sodium Level 140 mmol/L (136-145) Potassium Level 3.9 mmol/L (3.5-5.1) Chloride Level 102 mmol/L (98-107) Carbon Dioxide Level 29 mmol/L (21-32) Anion Gap 9 (6-14) Blood Urea Nitrogen 14 mg/dL (8-26) Creatinine 1.0 mg/dL (0.7-1.3) Estimated GFR (Cockcroft-Gault) 81.6 Glucose Level 99 mg/dL (70-99) Calcium Level 9.5 mg/dL (8.5-10.1) Assessment and Plan Assessmemt and Plan Problems Medical Problems: (1) Tenosynovitis of finger Status: Acute Comment Review of Relevant I have reviewed the following items rony (where applicable) has been applied. Labs Laboratory Tests Test 10/12/18 16:35 10/13/18 08:45 10/13/18 10:15 10/14/18 04:00 Total Bilirubin 0.4 mg/dL (0.2-1.0) Direct Bilirubin 0.1 mg/dL (0.0-0.2) Aspartate Amino Transf (AST/SGOT) 15 U/L (15-37) Alanine Aminotransferase (ALT/SGPT) 20 U/L (16-63) Alkaline Phosphatase 86 U/L (46-116) Total Protein 7.4 g/dL (6.4-8.2) Albumin 3.1 g/dL (3.4-5.0) White Blood Count 13.9 x10^3/uL (4.0-11.0) 13.2 x10^3/uL (4.0-11.0) Red Blood Count 4.39 x10^6/uL (4.30-5.70) 4.75 x10^6/uL (4.30-5.70) Hemoglobin 13.3 g/dL (13.0-17.5) 14.4 g/dL (13.0-17.5) Hematocrit 40.5 % (39.0-53.0) 43.5 % (39.0-53.0) Mean Corpuscular Volume 92 fL (79-100) 92 fL (79-100) Mean Corpuscular Hemoglobin 30 pg (25-35) 30 pg (25-35) Mean Corpuscular Hemoglobin Concent 33 g/dL (31-37) 33 g/dL (31-37) Red Cell Distribution Width 13.2 % (11.5-14.5) 12.8 % (11.5-14.5) Platelet Count 258 x10^3/uL (140-400) 371 x10^3/uL (140-400) Neutrophils (%) (Auto) 78 % (31-73) 77 % (31-73) Lymphocytes (%) (Auto) 15 % (24-48) 15 % (24-48) Monocytes (%) (Auto) 7 % (0-9) 6 % (0-9) Eosinophils (%) (Auto) 1 % (0-3) 1 % (0-3) Basophils (%) (Auto) 0 % (0-3) 1 % (0-3) Neutrophils # (Auto) 10.8 x10^3uL (1.8-7.7) 10.1 x10^3uL (1.8-7.7) Lymphocytes # (Auto) 2.1 x10^3/uL (1.0-4.8) 2.0 x10^3/uL (1.0-4.8) Monocytes # (Auto) 0.9 x10^3/uL (0.0-1.1) 0.9 x10^3/uL (0.0-1.1) Eosinophils # (Auto) 0.1 x10^3/uL (0.0-0.7) 0.2 x10^3/uL (0.0-0.7) Basophils # (Auto) 0.1 x10^3/uL (0.0-0.2) 0.1 x10^3/uL (0.0-0.2) Creatinine 1.2 mg/dL (0.7-1.3) 1.0 mg/dL (0.7-1.3) Estimated GFR (Cockcroft-Gault) 66.1 81.6 Vancomycin Level Trough 6.6 mcg/mL (10.0-20.0) Vancomycin Last Dose Date 10/12/18 Vancomycin Last Dose Time 2300 Sodium Level 140 mmol/L (136-145) Potassium Level 3.9 mmol/L (3.5-5.1) Chloride Level 102 mmol/L (98-107) Carbon Dioxide Level 29 mmol/L (21-32) Anion Gap 9 (6-14) Blood Urea Nitrogen 14 mg/dL (8-26) Glucose Level 99 mg/dL (70-99) Calcium Level 9.5 mg/dL (8.5-10.1) Laboratory Tests Test 10/13/18 10:15 10/14/18 04:00 Vancomycin Level Trough 6.6 mcg/mL (10.0-20.0) Vancomycin Last Dose Date 10/12/18 Vancomycin Last Dose Time 2300 White Blood Count 13.2 x10^3/uL (4.0-11.0) Red Blood Count 4.75 x10^6/uL (4.30-5.70) Hemoglobin 14.4 g/dL (13.0-17.5) Hematocrit 43.5 % (39.0-53.0) Mean Corpuscular Volume 92 fL (79-100) Mean Corpuscular Hemoglobin 30 pg (25-35) Mean Corpuscular Hemoglobin Concent 33 g/dL (31-37) Red Cell Distribution Width 12.8 % (11.5-14.5) Platelet Count 371 x10^3/uL (140-400) Neutrophils (%) (Auto) 77 % (31-73) Lymphocytes (%) (Auto) 15 % (24-48) Monocytes (%) (Auto) 6 % (0-9) Eosinophils (%) (Auto) 1 % (0-3) Basophils (%) (Auto) 1 % (0-3) Neutrophils # (Auto) 10.1 x10^3uL (1.8-7.7) Lymphocytes # (Auto) 2.0 x10^3/uL (1.0-4.8) Monocytes # (Auto) 0.9 x10^3/uL (0.0-1.1) Eosinophils # (Auto) 0.2 x10^3/uL (0.0-0.7) Basophils # (Auto) 0.1 x10^3/uL (0.0-0.2) Sodium Level 140 mmol/L (136-145) Potassium Level 3.9 mmol/L (3.5-5.1) Chloride Level 102 mmol/L (98-107) Carbon Dioxide Level 29 mmol/L (21-32) Anion Gap 9 (6-14) Blood Urea Nitrogen 14 mg/dL (8-26) Creatinine 1.0 mg/dL (0.7-1.3) Estimated GFR (Cockcroft-Gault) 81.6 Glucose Level 99 mg/dL (70-99) Calcium Level 9.5 mg/dL (8.5-10.1) Microbiology 10/11/18 Blood Culture - Preliminary, Resulted NO GROWTH AFTER 2 DAYS 10/12/18 Anaerobic/Aerobic Culture, Resulted Pending 10/12/18 Anaerobic Culture Result 1 (MICHAEL), Resulted Pending 10/12/18 Aerobic Culture, Resulted Pending 10/12/18 Aerobic Culture Result 1 (MICHAEL), Resulted Pending 10/12/18 Gram Stain - Final, Resulted 10/12/18 Gram Stain Result 1 (MICHAEL) - Final, Resulted 10/12/18 Gram Stain Result 2 (MICHAEL) - Final, Resulted Medications Current Medications Ceftriaxone Sodium (Rocephin) 1 gm 1X ONCE IVP Last administered on 10/11/18at 22:31; Start 10/11/18 at 22:30; Stop 10/11/18 at 22:31; Status DC Vancomycin HCl 250 ml @ 250 mls/hr 1X ONCE IV ; Start 10/11/18 at 21:45; Stop 10/11/18 at 22:44; Status UNV Diphtheria/ Tetanus/Acell Pertussis (Boostrix) 0.5 ml ONCE ONCE VAX IM Last administered on 10/11/18at 22:34; Start 10/11/18 at 22:30; Stop 10/11/18 at 22:31; Status DC Morphine Sulfate (Morphine Sulfate) 4 mg 1X ONCE IV Last administered on 10/11/18at 22:31; Start 10/11/18 at 22:30; Stop 10/11/18 at 22:31; Status DC Ondansetron HCl (Zofran) 4 mg PRN Q8HRS PRN IV NAUSEA/VOMITING 1ST CHOICE Last administered on 10/11/18at 22:30; Start 10/11/18 at 22:15; Stop 10/12/18 at 22:14; Status DC Morphine Sulfate (Morphine Sulfate) 4 mg PRN Q2HR PRN IV SEVERE PAIN Last administered on 10/12/18at 19:26; Start 10/11/18 at 22:15; Stop 10/12/18 at 22:14; Status DC Vancomycin HCl 1.75 gm/Sodium Chloride 500 ml @ 250 mls/hr 1X ONCE IV Last administered on 10/11/18at 22:35; Start 10/11/18 at 23:00; Stop 10/12/18 at 00:59; Status DC Vancomycin HCl (Vanco Per Pharmacy) 1 each PRN DAILY PRN MC SEE COMMENTS Last administered on 10/13/18at 11:06; Start 10/11/18 at 22:30 Vancomycin HCl 1 gm/Sodium Chloride 250 ml @ 250 mls/hr Q12H IV Last administered on 10/12/18at 23:39; Start 10/12/18 at 11:00; Stop 10/13/18 at 11:02; Status DC Vancomycin HCl (Vancomycin Trough Level) 1 each 1X ONCE MC Last administered on 10/13/18at 10:30; Start 10/13/18 at 10:30; Stop 10/13/18 at 10:31; Status DC Fentanyl Citrate (Fentanyl 2ml Vial) 100 mcg STK-MED ONCE .ROUTE ; Start 10/12/18 at 10:22; Stop 10/12/18 at 10:23; Status DC Midazolam HCl (Versed) 2 mg STK-MED ONCE .ROUTE ; Start 10/12/18 at 10:22; Stop 10/12/18 at 10:23; Status DC Propofol 20 ml @ As Directed STK-MED ONCE IV ; Start 10/12/18 at 10:22; Stop 10/12/18 at 10:23; Status DC Dexamethasone Sodium Phosphate (Decadron) 4 mg STK-MED ONCE .ROUTE ; Start 10/12/18 at 10:22; Stop 10/12/18 at 10:23; Status DC Ondansetron HCl (Zofran) 4 mg STK-MED ONCE .ROUTE ; Start 10/12/18 at 10:22; Stop 10/12/18 at 10:23; Status DC Ondansetron HCl (Zofran) 4 mg PRN Q6HRS PRN IV NAUSEA/VOMITING; Start 10/12/18 at 13:00; Stop 10/13/18 at 12:59; Status DC Fentanyl Citrate (Fentanyl 2ml Vial) 25 mcg PRN Q5MIN PRN IV MILD PAIN; Start 10/12/18 at 13:00; Stop 10/13/18 at 12:59; Status DC Fentanyl Citrate (Fentanyl 2ml Vial) 50 mcg PRN Q5MIN PRN IV MODERATE TO SEVERE PAIN; Start 10/12/18 at 13:00; Stop 10/13/18 at 12:59; Status DC Morphine Sulfate (Morphine Sulfate) 1 mg PRN Q10MIN PRN IV SEVERE PAIN Last administered on 10/12/18at 14:41; Start 10/12/18 at 13:00; Stop 10/13/18 at 12:59; Status DC Ringer's Solution 1,000 ml @ 30 mls/hr Q24H IV ; Start 10/12/18 at 12:50; Stop 10/13/18 at 00:49; Status DC Hydromorphone HCl (Dilaudid) 0.5 mg PRN Q10MIN PRN IV SEV PAIN, Second choice; Start 10/12/18 at 13:00; Stop 10/13/18 at 12:59; Status DC Prochlorperazine Edisylate (Compazine) 5 mg PACU PRN PRN IV NAUSEA, MRX1; Start 10/12/18 at 13:00; Stop 10/13/18 at 12:59; Status DC Multivitamins 10 ml/Thiamine HCl 100 mg/Folic Acid 1 mg/Sodium Chloride 1,011.2 ml @ 100 mls/ hr DAILY IV Last administered on 10/12/18 14:00; Start 10/12/18 at 14:00; Stop 10/13/18 at 10:49; Status DC Folic Acid (Folic Acid) 1 mg DAILY PO ; Start 10/13/18 at 09:00; Status UNV Lorazepam (Ativan) 2 mg Q6H PO Last administered on 10/12/18at 13:00; Start 10/12/18 at 13:00; Stop 10/13/18 at 00:32; Status DC Lorazepam (Ativan) 2 mg PRN Q1HR PRN IV For CIWA 8-14 Last administered on 10/13/18at 20:29; Start 10/12/18 at 23:15 Lorazepam (Ativan) 4 mg PRN Q1HR PRN IV For CIWA 15 or greater; Start 10/12/18 at 23:15 Diphenhydramine HCl (Benadryl) 25 mg PRN Q6HRS PRN PO ITCHING; Start 10/12/18 at 23:15 Quetiapine Fumarate (SEROquel) 50 mg PRN QHS PRN PO sleep Last administered on 10/12/18at 23:37; Start 10/12/18 at 23:15 Morphine Sulfate (Morphine Sulfate) 4 mg PRN Q2HR PRN IV SEVERE PAIN Last administered on 10/14/18 09:06; Start 10/13/18 at 06:15 Oxycodone/ Acetaminophen (Percocet 5/325) 1 tab PRN Q4HRS PRN PO SEVERE PAIN; Start 10/13/18 at 06:15 Folic Acid (Folic Acid) 1 mg DAILY PO Last administered on 10/14/18 09:05; Start 10/13/18 at 11:00 Thiamine Mononitrate (Vitamin B-1) 100 mg DAILY PO Last administered on 10/14/18 09:05; Start 10/13/18 at 11:00 Ceftriaxone Sodium (Rocephin) 1 gm Q24H IVP Last administered on 10/13/18 12:08; Start 10/13/18 at 11:00 Vancomycin HCl 1.25 gm/Sodium Chloride 250 ml @ 166.667 mls/hr 1X ONCE IV Last administered on 5/1/19at 13:38; Start 10/13/18 at 12:00; Stop 10/13/18 at 13:29; Status DC Vancomycin HCl 1 gm/Sodium Chloride 250 ml @ 250 mls/hr Q8H IV Last administered on 10/14/18at 03:30; Start 10/13/18 at 20:00 Vitals/I & O Vital Sign - Last 24 Hours 10/13/18 10/13/18 10/13/18 10/13/18 11:00 12:55 15:00 19:00 Temp 98.8 99.9 99.3 98.8 99.9 99.3 Pulse 83 89 108 Resp 20 20 16 B/P (MAP) 153/98 (116) 143/100 (114) 140/100 (113) Pulse Ox 96 94 93 O2 Delivery Room Air Room Air Room Air Room Air 10/13/18 10/13/18 10/13/18 10/13/18 20:20 20:29 21:17 22:14 Resp 18 18 Pulse Ox 94 94 O2 Delivery Room Air Room Air Room Air 10/13/18 10/14/18 10/14/18 10/14/18 23:00 03:00 07:00 09:06 Temp 99.2 98.2 98.4 99.2 98.2 98.4 Pulse 117 80 98 Resp 18 16 20 B/P (MAP) 142/106 (118) 141/100 (114) 143/96 (112) Pulse Ox 96 95 97 O2 Delivery Room Air Room Air Room Air Room Air 10/14/18 09:39 O2 Delivery Room Air Intake and Output 10/13/18 10/13/18 10/14/18 14:59 22:59 06:59 Intake Total 500 ml 240 ml Balance 500 ml 240 ml ROCIO BELCHER MD October 14, 2018 10:02
--- NOTE | 2018-10-14 10:11 | PDOC ---
Infectious Disease Note Subjective Subjective pt is feeling better ROS ROS no n/v/d/sob Vital Sign Vital Signs Vital Signs Date Time Temp Pulse Resp B/P (MAP) Pulse Ox O2 Delivery O2 Flow Rate FiO2 10/14/18 09:39 Room Air 10/14/18 07:00 98.4 98 20 143/96 (112) 97 98.4 Physical Exam PHYSICAL EXAM GENERAL: Alert, oriented gentleman, not in any distress. VITAL SIGNS: Stable, afebrile. HEENT: NAD. NECK: Supple. No JVP, no lymphadenopathy. LUNGS: Clear. HEART: S1, S2 regular. ABDOMEN: Benign. EXTREMITIES: The patient does have green discoloration of the fingers. 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 Lab Laboratory Tests Test 10/13/18 10:15 10/14/18 04:00 Vancomycin Level Trough 6.6 mcg/mL (10.0-20.0) Vancomycin Last Dose Date 10/12/18 Vancomycin Last Dose Time 2300 White Blood Count 13.2 x10^3/uL (4.0-11.0) Red Blood Count 4.75 x10^6/uL (4.30-5.70) Hemoglobin 14.4 g/dL (13.0-17.5) Hematocrit 43.5 % (39.0-53.0) Mean Corpuscular Volume 92 fL (79-100) Mean Corpuscular Hemoglobin 30 pg (25-35) Mean Corpuscular Hemoglobin Concent 33 g/dL (31-37) Red Cell Distribution Width 12.8 % (11.5-14.5) Platelet Count 371 x10^3/uL (140-400) Neutrophils (%) (Auto) 77 % (31-73) Lymphocytes (%) (Auto) 15 % (24-48) Monocytes (%) (Auto) 6 % (0-9) Eosinophils (%) (Auto) 1 % (0-3) Basophils (%) (Auto) 1 % (0-3) Neutrophils # (Auto) 10.1 x10^3uL (1.8-7.7) Lymphocytes # (Auto) 2.0 x10^3/uL (1.0-4.8) Monocytes # (Auto) 0.9 x10^3/uL (0.0-1.1) Eosinophils # (Auto) 0.2 x10^3/uL (0.0-0.7) Basophils # (Auto) 0.1 x10^3/uL (0.0-0.2) Sodium Level 140 mmol/L (136-145) Potassium Level 3.9 mmol/L (3.5-5.1) Chloride Level 102 mmol/L (98-107) Carbon Dioxide Level 29 mmol/L (21-32) Anion Gap 9 (6-14) Blood Urea Nitrogen 14 mg/dL (8-26) Creatinine 1.0 mg/dL (0.7-1.3) Estimated GFR (Cockcroft-Gault) 81.6 Glucose Level 99 mg/dL (70-99) Calcium Level 9.5 mg/dL (8.5-10.1) Micro Microbiology 10/11/18 Blood Culture - Preliminary, Resulted NO GROWTH AFTER 1 DAY Objective Assessment 1. Right middle finger swelling and pain with infection. s/p I and D on 10/12 2. Tenosynovitis. 3. Rt middle finger cellulitis/abscess. Plan Plan of Care cont antibiotics check cultures CHACORTA DIAZ MD October 14, 2018 10:11
[2018-10-14 11:00] VITALS: BP 139/92
[2018-10-14] MEDS: cefTRIAXone IV Push 1 GM VIAL. IVP SCH (11:23)
[2018-10-14] MEDS: oxyCODONE/APAP 5/325 1 TAB TABLET PO PRN ×3 (11:23→22:58)
[2018-10-14] MEDS: VANCOMYCIN PER PHARMACY MC PRN (13:44)
--- NOTE | 2018-10-14 16:12 | NUR ---
Wound Care Wound care consult for open surgical incisions to R 3rd finger and R palm. Cleansed wounds, pictured and measured wounds, repacked with iodoform gauze and covered with gauze and Kerlix. No other wounds noted on full skin inspection. Recommend to change packing daily. WC will continue to follow for possible changes.
[2018-10-14 19:00] VITALS: BP 131/91
[2018-10-14] MEDS: LACTOBACILLUS RHAMNOSUS GG 1 CAPSULE. PO SCH (20:25)
[2018-10-14 23:00] VITALS: BP 147/102
[2018-10-14] MEDS: QUEtiapine 25 MG TABLET. PO PRN (23:24)
[2018-10-15 03:00] VITALS: BP 119/80
[2018-10-15] MEDS: MORPHINE SULFATE 4 MG/ML VIAL. IV PRN ×5 (03:49→20:01)
[2018-10-15] MEDS: VANCOMYCIN 1 GM in IV NORMAL SALINE 250ML 250 ML IV SCH ×3 (04:16→19:59)
[2018-10-15] MEDS: VANCOMYCIN PER PHARMACY MC PRN (05:42)
--- NOTE | 2018-10-15 05:42 | NUR ---
Pharmacy Vancomycin Dosing Note S: Consulted to monitor and dose vancomycin started 10/11/18. O: SALVADOR MENDOZA is a 42 year old M with Cellulitis, TENOSYNOVITIS . Other Antibiotics: LABS: Last BUN: 14 Last Creatinine: 1.0 Creatinine Clearance: 90 mL/min Last WBC: 13.2 Last Procalcitonin: - Tmax (past 24 hours): 99.9 Microbiology: BLOOD CX (10/11): NGTD HAND CULTURE PENDING 10/13 I/O: 740/- Drug Levels: Last Trough level: 14.0 on 10/15/18 at 0330 Last dose given 10/14/18 at 202 Vancomycin Dosing: Dosing Weight: Actual Target Trough: 10-20 A: Based on: Trough, Updated Actual Wt and Improved CrCl P: 1. 10/15/18 0400 Continue Vancomycin 1000 mg IV q8h 2. Follow up Trough level in 5 to 7 days as needed 3. Pharmacy will continue to monitor, follow and adjust therapy as needed. WILLA JERNIGAN RPH, 10/15/18 0543 Signed: 10/15/18 at 0544 by WILLA JERNIGAN RPH PHA
[2018-10-15 06:34] VITALS: BP 123/90
[2018-10-15] MEDS: THIAMINE 100 MG TABLET. PO SCH (08:09)
[2018-10-15] MEDS: LACTOBACILLUS RHAMNOSUS GG 1 CAPSULE. PO SCH ×2 (08:09→20:00)
[2018-10-15] MEDS: FOLIC ACID 1 MG TABLET. PO SCH (08:09)
--- NOTE | 2018-10-15 10:13 | PDOC ---
PROGRESS NOTES History of Present Illness History of Present Illness VTE Prophylaxis Ordered VTE Prophylaxis Devices: Yes VTE Pharmacological Prophylaxi: Yes Assessment/Plan Assessment/Plan IMPRESSION Acute tenosynovitis No evidence of acute fracture or dislocation. Soft tissue swelling of the third finger, consider inflammatory or infectious etiology. tobacco abuse ALCOHOL ABUSE HX plan iv antibiotics ortho consult npo iv vancomycin iv rocephin ID CONSULT IV FLUID SUPPORT ALCOHOL WITHDRAWAL PRECAUTIONS low risk for post-op complications dvt prophylaxis 36 MIN PT EXAM, CHART REVIEW, > 50% OF TIME SPENT WITH EXAM, CHART REVIEW, PT CARE COORDINATION Vitals Vitals Vital Signs Date Time Temp Pulse Resp B/P (MAP) Pulse Ox O2 Delivery O2 Flow Rate FiO2 10/15/18 08:11 18 94 Room Air 10.0 10/15/18 06:34 97.6 73 123/90 (101) 97.6 Physical Exam Physical Exam GENERAL: Alert, oriented gentleman, not in any distress. VITAL SIGNS: Stable, afebrile. HEENT: NAD. NECK: Supple. No JVP, no lymphadenopathy. LUNGS: Clear. HEART: S1, S2 regular. ABDOMEN: Benign. EXTREMITIES: The patient does have green discoloration of the fingers. 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 Labs Laboratory Tests Test 10/13/18 10:15 10/14/18 04:00 10/15/18 03:30 Vancomycin Level Trough 6.6 mcg/mL (10.0-20.0) 14.0 mcg/mL (10.0-20.0) Vancomycin Last Dose Date 10/12/18 Vancomycin Last Dose Time 2300 White Blood Count 13.2 x10^3/uL (4.0-11.0) Red Blood Count 4.75 x10^6/uL (4.30-5.70) Hemoglobin 14.4 g/dL (13.0-17.5) Hematocrit 43.5 % (39.0-53.0) Mean Corpuscular Volume 92 fL (79-100) Mean Corpuscular Hemoglobin 30 pg (25-35) Mean Corpuscular Hemoglobin Concent 33 g/dL (31-37) Red Cell Distribution Width 12.8 % (11.5-14.5) Platelet Count 371 x10^3/uL (140-400) Neutrophils (%) (Auto) 77 % (31-73) Lymphocytes (%) (Auto) 15 % (24-48) Monocytes (%) (Auto) 6 % (0-9) Eosinophils (%) (Auto) 1 % (0-3) Basophils (%) (Auto) 1 % (0-3) Neutrophils # (Auto) 10.1 x10^3uL (1.8-7.7) Lymphocytes # (Auto) 2.0 x10^3/uL (1.0-4.8) Monocytes # (Auto) 0.9 x10^3/uL (0.0-1.1) Eosinophils # (Auto) 0.2 x10^3/uL (0.0-0.7) Basophils # (Auto) 0.1 x10^3/uL (0.0-0.2) Sodium Level 140 mmol/L (136-145) Potassium Level 3.9 mmol/L (3.5-5.1) Chloride Level 102 mmol/L (98-107) Carbon Dioxide Level 29 mmol/L (21-32) Anion Gap 9 (6-14) Blood Urea Nitrogen 14 mg/dL (8-26) Creatinine 1.0 mg/dL (0.7-1.3) Estimated GFR (Cockcroft-Gault) 81.6 Glucose Level 99 mg/dL (70-99) Calcium Level 9.5 mg/dL (8.5-10.1) Laboratory Tests Test 10/15/18 03:30 Vancomycin Level Trough 14.0 mcg/mL (10.0-20.0) Vancomycin Last Dose Date Vancomycin Last Dose Time Microbiology 10/11/18 Blood Culture - Preliminary, Resulted NO GROWTH AFTER 3 DAYS 10/12/18 Anaerobic/Aerobic Culture, Resulted Pending 10/12/18 Anaerobic Culture Result 1 (MICHAEL), Resulted Pending 10/12/18 Aerobic Culture - Preliminary, Resulted 10/12/18 Aerobic Culture Result 1 (MICHAEL) - Preliminary, Resulted 10/12/18 Gram Stain - Final, Resulted 10/12/18 Gram Stain Result 1 (MICHAEL) - Final, Resulted 10/12/18 Gram Stain Result 2 (MICHAEL) - Final, Resulted Medications Current Medications Ceftriaxone Sodium (Rocephin) 1 gm 1X ONCE IVP Last administered on 10/11/18 22:31; Start 10/11/18 at 22:30; Stop 10/11/18 at 22:31; Status DC Vancomycin HCl 250 ml @ 250 mls/hr 1X ONCE IV ; Start 10/11/18 at 21:45; Stop 10/11/18 at 22:44; Status UNV Diphtheria/ Tetanus/Acell Pertussis (Boostrix) 0.5 ml ONCE ONCE VAX IM Last administered on 10/11/18at 22:34; Start 10/11/18 at 22:30; Stop 10/11/18 at 22:31; Status DC Morphine Sulfate (Morphine Sulfate) 4 mg 1X ONCE IV Last administered on 10/11/18 22:31; Start 10/11/18 at 22:30; Stop 10/11/18 at 22:31; Status DC Ondansetron HCl (Zofran) 4 mg PRN Q8HRS PRN IV NAUSEA/VOMITING 1ST CHOICE Last administered on 10/11/18 22:30; Start 10/11/18 at 22:15; Stop 10/12/18 at 22:14; Status DC Morphine Sulfate (Morphine Sulfate) 4 mg PRN Q2HR PRN IV SEVERE PAIN Last administered on 10/12/18at 19:26; Start 10/11/18 at 22:15; Stop 10/12/18 at 22:14; Status DC Vancomycin HCl 1.75 gm/Sodium Chloride 500 ml @ 250 mls/hr 1X ONCE IV Last administered on 10/11/18at 22:35; Start 10/11/18 at 23:00; Stop 10/12/18 at 00:59; Status DC Vancomycin HCl (Vanco Per Pharmacy) 1 each PRN DAILY PRN MC SEE COMMENTS Last administered on 10/15/18at 05:42; Start 10/11/18 at 22:30 Vancomycin HCl 1 gm/Sodium Chloride 250 ml @ 250 mls/hr Q12H IV Last administered on 10/12/18at 23:39; Start 10/12/18 at 11:00; Stop 10/13/18 at 11:02; Status DC Vancomycin HCl (Vancomycin Trough Level) 1 each 1X ONCE MC Last administered on 10/13/18at 10:30; Start 10/13/18 at 10:30; Stop 10/13/18 at 10:31; Status DC Fentanyl Citrate (Fentanyl 2ml Vial) 100 mcg STK-MED ONCE .ROUTE ; Start 10/12/18 at 10:22; Stop 10/12/18 at 10:23; Status DC Midazolam HCl (Versed) 2 mg STK-MED ONCE .ROUTE ; Start 10/12/18 at 10:22; Stop 10/12/18 at 10:23; Status DC Propofol 20 ml @ As Directed STK-MED ONCE IV ; Start 10/12/18 at 10:22; Stop 10/12/18 at 10:23; Status DC Dexamethasone Sodium Phosphate (Decadron) 4 mg STK-MED ONCE .ROUTE ; Start 10/12/18 at 10:22; Stop 10/12/18 at 10:23; Status DC Ondansetron HCl (Zofran) 4 mg STK-MED ONCE .ROUTE ; Start 10/12/18 at 10:22; Stop 10/12/18 at 10:23; Status DC Ondansetron HCl (Zofran) 4 mg PRN Q6HRS PRN IV NAUSEA/VOMITING; Start 10/12/18 at 13:00; Stop 10/13/18 at 12:59; Status DC Fentanyl Citrate (Fentanyl 2ml Vial) 25 mcg PRN Q5MIN PRN IV MILD PAIN; Start 10/12/18 at 13:00; Stop 10/13/18 at 12:59; Status DC Fentanyl Citrate (Fentanyl 2ml Vial) 50 mcg PRN Q5MIN PRN IV MODERATE TO SEVERE PAIN; Start 10/12/18 at 13:00; Stop 10/13/18 at 12:59; Status DC Morphine Sulfate (Morphine Sulfate) 1 mg PRN Q10MIN PRN IV SEVERE PAIN Last administered on 10/12/18at 14:41; Start 10/12/18 at 13:00; Stop 10/13/18 at 12:59; Status DC Ringer's Solution 1,000 ml @ 30 mls/hr Q24H IV ; Start 10/12/18 at 12:50; Stop 10/13/18 at 00:49; Status DC Hydromorphone HCl (Dilaudid) 0.5 mg PRN Q10MIN PRN IV SEV PAIN, Second choice; Start 10/12/18 at 13:00; Stop 10/13/18 at 12:59; Status DC Prochlorperazine Edisylate (Compazine) 5 mg PACU PRN PRN IV NAUSEA, MRX1; Start 10/12/18 at 13:00; Stop 10/13/18 at 12:59; Status DC Multivitamins 10 ml/Thiamine HCl 100 mg/Folic Acid 1 mg/Sodium Chloride 1,011.2 ml @ 100 mls/ hr DAILY IV Last administered on 10/12/18at 14:00; Start 10/12/18 at 14:00; Stop 10/13/18 at 10:49; Status DC Folic Acid (Folic Acid) 1 mg DAILY PO ; Start 10/13/18 at 09:00; Status UNV Lorazepam (Ativan) 2 mg Q6H PO Last administered on 10/12/18at 13:00; Start 09/15 at 13:00; Stop 10/13/18 at 00:32; Status DC Lorazepam (Ativan) 2 mg PRN Q1HR PRN IV For CIWA 8-14 Last administered on 10/13at 20:29; Start 10/12/18 at 23:15 Lorazepam (Ativan) 4 mg PRN Q1HR PRN IV For CIWA 15 or greater; Start 10/12/18 at 23:15 Diphenhydramine HCl (Benadryl) 25 mg PRN Q6HRS PRN PO ITCHING Last administered on 10/14/18at 18:26; Start 10/12/18 at 23:15 Quetiapine Fumarate (SEROquel) 50 mg PRN QHS PRN PO sleep Last administered on 10/14/18at 23:24; Start 10/12/18 at 23:15 Morphine Sulfate (Morphine Sulfate) 4 mg PRN Q2HR PRN IV SEVERE PAIN Last administered on 10/15/18at 08:11; Start 10/13/18 at 06:15 Oxycodone/ Acetaminophen (Percocet 5/325) 1 tab PRN Q4HRS PRN PO SEVERE PAIN Last administered on 10/14/18 22:58; Start 10/13/18 at 06:15 Folic Acid (Folic Acid) 1 mg DAILY PO Last administered on 10/15/18 08:09; Start 10/13/18 at 11:00 Thiamine Mononitrate (Vitamin B-1) 100 mg DAILY PO Last administered on 10/15/18 08:09; Start 10/13/18 at 11:00 Ceftriaxone Sodium (Rocephin) 1 gm Q24H IVP Last administered on 10/14/18 11:23; Start 10/13/18 at 11:00 Vancomycin HCl 1.25 gm/Sodium Chloride 250 ml @ 166.667 mls/hr 1X ONCE IV Last administered on 10/13/18at 13:38; Start 10/13/18 at 12:00; Stop 10/13/18 at 13:29; Status DC Vancomycin HCl 1 gm/Sodium Chloride 250 ml @ 250 mls/hr Q8H IV Last administered on 10/15/18at 04:16; Start 10/13/18 at 20:00 Vancomycin HCl (Vancomycin Trough Level) 1 each 1X ONCE MC ; Start 10/15/18 at 03:30; Stop 10/15/18 at 03:31; Status DC Lactobacillus Rhamnosus (Culturelle) 1 cap BID PO Last administered on 10/15/18 08:09; Start 10/14/18 at 21:00 Vitals/I & O Vital Sign - Last 24 Hours 10/14/18 10/14/18 10/14/18 10/14/18 11:00 11:23 15:22 17:02 Temp 97.5 97.5 Pulse 92 Resp 20 B/P (MAP) 139/92 (108) Pulse Ox 96 O2 Delivery Room Air Room Air Room Air Room Air 10/14/18 10/14/18 10/14/18 10/14/18 17:45 19:00 19:45 22:58 Temp 98.6 98.6 Pulse 78 Resp 18 B/P (MAP) 131/91 (104) Pulse Ox 99 99 O2 Delivery Room Air Room Air Room Air Room Air O2 Flow Rate 10.0 10/14/18 10/14/18 10/14/183/19 23:00 23:24 23:54 03:00 Temp 98.7 98.4 98.7 98.4 Pulse 89 79 Resp 17 16 B/P (MAP) 147/102 (117) 119/80 (93) Pulse Ox 100 99 99 94 O2 Delivery Room Air Room Air Room Air Room Air O2 Flow Rate 10.0 10.0 10/15/18 10/15/18 10/15/18 10/15/18 03:49 04:17 06:34 08:11 Temp 97.6 97.6 Pulse 73 Resp 16 18 B/P (MAP) 123/90 (101) Pulse Ox 99 99 94 94 O2 Delivery Room Air Room Air Room Air Room Air O2 Flow Rate 10.0 10.0 10.0 Intake and Output 10/14/18 10/14/18 10/15/18 15:00 23:00 07:00 Intake Total 1250 ml Balance 1250 ml ROCIO BELCHER MD October 15, 2018 10:13
[2018-10-15 11:00] VITALS: BP 126/87
[2018-10-15] MEDS: cefTRIAXone IV Push 1 GM VIAL. IVP SCH (11:20)
[2018-10-15 12:04] LABS: BASO # 0.1 x10^3/uL (0.0-0.2); BASO % 0 % (0-3); EOS # 0.4 x10^3/uL (0.0-0.7); EOS % 3 % (0-3); HEMATOCRIT 44.3 % (39.0-53.0); HEMOGLOBIN 14.5 g/dL (13.0-17.5); LYMPH # 2.2 x10^3/uL (1.0-4.8); LYMPH % 17 % (24-48); MEAN CORPUSCULAR HEMOGLOBIN 31 pg (25-35); MEAN CORPUSCULAR HGB CONC 33 g/dL (31-37); MEAN CORPUSCULAR VOLUME 93 fL (79-100); MONO # 0.8 x10^3/uL (0.0-1.1); MONO % 7 % (0-9); NEUT % 72 % (31-73); PLATELET COUNT 264 x10^3/uL (140-400); RED BLOOD COUNT 4.76 x10^6/uL (4.30-5.70); WHITE BLOOD COUNT 12.5 x10^3/uL (4.0-11.0)
--- NOTE | 2018-10-15 12:23 | PDOC ---
Infectious Disease Note Subjective Subjective pt is feeling better ROS ROS no n/v/d/ Vital Sign Vital Signs Vital Signs Date Time Temp Pulse Resp B/P (MAP) Pulse Ox O2 Delivery O2 Flow Rate FiO2 10/15/18 11:21 94 Room Air 10.0 10/15/18 11:00 98.3 80 18 126/87 (100) 98.3 Physical Exam PHYSICAL EXAM GENERAL: Alert, oriented gentleman, not in any distress. VITAL SIGNS: Stable, afebrile. HEENT: NAD. NECK: Supple. No JVP, no lymphadenopathy. LUNGS: Clear. HEART: S1, S2 regular. ABDOMEN: Benign. EXTREMITIES: The patient does have green discoloration of the fingers. 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 nad Labs Lab Laboratory Tests Test 10/15/18 03:30 10/15/18 11:50 Vancomycin Level Trough 14.0 mcg/mL (10.0-20.0) Vancomycin Last Dose Date Vancomycin Last Dose Time White Blood Count 12.5 x10^3/uL (4.0-11.0) Red Blood Count 4.76 x10^6/uL (4.30-5.70) Hemoglobin 14.5 g/dL (13.0-17.5) Hematocrit 44.3 % (39.0-53.0) Mean Corpuscular Volume 93 fL (79-100) Mean Corpuscular Hemoglobin 31 pg (25-35) Mean Corpuscular Hemoglobin Concent 33 g/dL (31-37) Red Cell Distribution Width 13.0 % (11.5-14.5) Platelet Count 264 x10^3/uL (140-400) Neutrophils (%) (Auto) 72 % (31-73) Lymphocytes (%) (Auto) 17 % (24-48) Monocytes (%) (Auto) 7 % (0-9) Eosinophils (%) (Auto) 3 % (0-3) Basophils (%) (Auto) 0 % (0-3) Neutrophils # (Auto) 9.0 x10^3uL (1.8-7.7) Lymphocytes # (Auto) 2.2 x10^3/uL (1.0-4.8) Monocytes # (Auto) 0.8 x10^3/uL (0.0-1.1) Eosinophils # (Auto) 0.4 x10^3/uL (0.0-0.7) Basophils # (Auto) 0.1 x10^3/uL (0.0-0.2) Micro ANAEROBIC-AEROBIC CULTURE PENDING ANAEROBIC RES 1 PENDING AEROBIC CULT Preliminary Preliminary report AEROBIC RES 1 Preliminary Comment No growth in 36 - 48 hours. GRAM STAIN Final Final report GRAM STAIN RES 1 Final No organisms seen GRAM STAIN RES 2 Final Comment No white blood cells seen. Performed at: - [facility] [id number] [facility] [id number], [place], [place] [id number] Piercing Artist: BRYANT Venegas MD, Phone: [phone] Objective Assessment 1. Right middle finger swelling and pain with infection. s/p I and D on 10/12 2. Tenosynovitis. 3. Rt middle finger cellulitis/abscess. Plan Plan of Care cont antibiotics check cultures CHACORTA DIAZ MD October 15, 2018 12:23
--- NOTE | 2018-10-15 13:11 | RAD ---
Right hand, 3 views, 10/15/2018: HISTORY: Tenosynovitis No fracture or dislocation is identified. No significant arthritic change is seen. IMPRESSION: No significant bony abnormality is identified. Electronically signed by: Bo Ribera MD (10/15/2018 1:08 PM) [facility]
--- NOTE | 2018-10-15 13:56 | PDOC ---
PROGRESS NOTES Subjective Subjective Problems overnight: Middle finger is still sore but moving it better than on initial presentation Objective Vital Signs Vital Signs Date Time Temp Pulse Resp B/P (MAP) Pulse Ox O2 Delivery O2 Flow Rate FiO2 10/15/18 13:30 18 94 Room Air 10.0 10/15/18 11:00 98.3 80 126/87 (100) 98.3 Physical Exam Passively I'm able to get his finger through really full flexion and extension with soreness on extremes especially but tendon is gliding well superficialis and profundus function is intact and he can move the finger actively much better than on presentation. Wounds are still open in the palm and over the middle phalanx volarly where the areas were packed open. He has note tenderness proximally over the palm or in the other flexor tendon sheaths Labs Laboratory Tests Test 10/14/18 04:00 10/15/18 03:30 10/15/18 11:50 White Blood Count 13.2 x10^3/uL (4.0-11.0) 12.5 x10^3/uL (4.0-11.0) Red Blood Count 4.75 x10^6/uL (4.30-5.70) 4.76 x10^6/uL (4.30-5.70) Hemoglobin 14.4 g/dL (13.0-17.5) 14.5 g/dL (13.0-17.5) Hematocrit 43.5 % (39.0-53.0) 44.3 % (39.0-53.0) Mean Corpuscular Volume 92 fL (79-100) 93 fL (79-100) Mean Corpuscular Hemoglobin 30 pg (25-35) 31 pg (25-35) Mean Corpuscular Hemoglobin Concent 33 g/dL (31-37) 33 g/dL (31-37) Red Cell Distribution Width 12.8 % (11.5-14.5) 13.0 % (11.5-14.5) Platelet Count 371 x10^3/uL (140-400) 264 x10^3/uL (140-400) Neutrophils (%) (Auto) 77 % (31-73) 72 % (31-73) Lymphocytes (%) (Auto) 15 % (24-48) 17 % (24-48) Monocytes (%) (Auto) 6 % (0-9) 7 % (0-9) Eosinophils (%) (Auto) 1 % (0-3) 3 % (0-3) Basophils (%) (Auto) 1 % (0-3) 0 % (0-3) Neutrophils # (Auto) 10.1 x10^3uL (1.8-7.7) 9.0 x10^3uL (1.8-7.7) Lymphocytes # (Auto) 2.0 x10^3/uL (1.0-4.8) 2.2 x10^3/uL (1.0-4.8) Monocytes # (Auto) 0.9 x10^3/uL (0.0-1.1) 0.8 x10^3/uL (0.0-1.1) Eosinophils # (Auto) 0.2 x10^3/uL (0.0-0.7) 0.4 x10^3/uL (0.0-0.7) Basophils # (Auto) 0.1 x10^3/uL (0.0-0.2) 0.1 x10^3/uL (0.0-0.2) Sodium Level 140 mmol/L (136-145) Potassium Level 3.9 mmol/L (3.5-5.1) Chloride Level 102 mmol/L (98-107) Carbon Dioxide Level 29 mmol/L (21-32) Anion Gap 9 (6-14) Blood Urea Nitrogen 14 mg/dL (8-26) Creatinine 1.0 mg/dL (0.7-1.3) Estimated GFR (Cockcroft-Gault) 81.6 Glucose Level 99 mg/dL (70-99) Calcium Level 9.5 mg/dL (8.5-10.1) Vancomycin Level Trough 14.0 mcg/mL (10.0-20.0) Vancomycin Last Dose Date Vancomycin Last Dose Time Laboratory Tests Test 10/15/18 03:30 10/15/18 11:50 Vancomycin Level Trough 14.0 mcg/mL (10.0-20.0) Vancomycin Last Dose Date Vancomycin Last Dose Time White Blood Count 12.5 x10^3/uL (4.0-11.0) Red Blood Count 4.76 x10^6/uL (4.30-5.70) Hemoglobin 14.5 g/dL (13.0-17.5) Hematocrit 44.3 % (39.0-53.0) Mean Corpuscular Volume 93 fL (79-100) Mean Corpuscular Hemoglobin 31 pg (25-35) Mean Corpuscular Hemoglobin Concent 33 g/dL (31-37) Red Cell Distribution Width 13.0 % (11.5-14.5) Platelet Count 264 x10^3/uL (140-400) Neutrophils (%) (Auto) 72 % (31-73) Lymphocytes (%) (Auto) 17 % (24-48) Monocytes (%) (Auto) 7 % (0-9) Eosinophils (%) (Auto) 3 % (0-3) Basophils (%) (Auto) 0 % (0-3) Neutrophils # (Auto) 9.0 x10^3uL (1.8-7.7) Lymphocytes # (Auto) 2.2 x10^3/uL (1.0-4.8) Monocytes # (Auto) 0.8 x10^3/uL (0.0-1.1) Eosinophils # (Auto) 0.4 x10^3/uL (0.0-0.7) Basophils # (Auto) 0.1 x10^3/uL (0.0-0.2) Assessment Assessment POD# [], S/P [I&D of flexor tenosynovitis] Plan Plan of Care Continue daily dressing changes and finger movement as tolerated. Cultures pending, continue antibiotics in interim Overall he still has soreness as expected but much improved from his initial presentation from an orthopedic standpoint SHON GARY MD October 15, 2018 13:56
[2018-10-15 15:00] VITALS: BP 141/95
[2018-10-15] MEDS: oxyCODONE/APAP 5/325 1 TAB TABLET PO PRN (15:37)
[2018-10-15 19:00] VITALS: BP 148/95
[2018-10-15 22:49] VITALS: BP 143/97
[2018-10-16 02:49] VITALS: BP 139/89
[2018-10-16] MEDS: VANCOMYCIN 1 GM in IV NORMAL SALINE 250ML 250 ML IV SCH ×3 (05:15→20:21)
[2018-10-16 07:00] VITALS: BP 144/95
[2018-10-16 07:45] LABS: CREATININE 0.9 mg/dL (0.7-1.3); GFR 92.1
--- NOTE | 2018-10-16 08:08 | PDOC ---
PROGRESS NOTES History of Present Illness History of Present Illness VTE Prophylaxis Ordered VTE Prophylaxis Devices: Yes VTE Pharmacological Prophylaxi: Yes Assessment/Plan Assessment/Plan IMPRESSION Acute tenosynovitis No evidence of acute fracture or dislocation. Soft tissue swelling of the third finger, consider inflammatory or infectious etiology. tobacco abuse ALCOHOL ABUSE HX middle finger remains sore , has fair ROM 10/16 plan iv antibiotics ortho consult npo iv vancomycin iv rocephin ID CONSULT IV FLUID SUPPORT ALCOHOL WITHDRAWAL PRECAUTIONS low risk for post-op complications dvt prophylaxis 38 MIN PT EXAM, CHART REVIEW, > 50% OF TIME SPENT WITH EXAM, CHART REVIEW, PT CARE COORDINATION Vitals Vitals Vital Signs Date Time Temp Pulse Resp B/P (MAP) Pulse Ox O2 Delivery O2 Flow Rate FiO2 10/16/18 02:49 98.4 99 18 139/89 (106) 98 Room Air 98.4 10/15/18 16:37 10.0 Physical Exam Physical Exam GENERAL: Alert, oriented gentleman, not in any distress. VITAL SIGNS: Stable, afebrile. HEENT: NAD. NECK: Supple. No JVP, no lymphadenopathy. LUNGS: Clear. HEART: S1, S2 regular. ABDOMEN: Benign. EXTREMITIES: The patient does have green discoloration of the fingers. 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: Alert, Oriented X3, Cooperative, No acute distress, mild distress Heart: Regular rate, Normal S1, Normal S2, No murmurs Lungs: Clear Abdomen: Normal bowel sounds, Soft Extremities: No clubbing, No cyanosis Skin: No significant lesion Labs LABS Laboratory Tests Test 10/15/18 11:50 10/16/18 06:40 White Blood Count 12.5 x10^3/uL (4.0-11.0) Red Blood Count 4.76 x10^6/uL (4.30-5.70) Hemoglobin 14.5 g/dL (13.0-17.5) Hematocrit 44.3 % (39.0-53.0) Mean Corpuscular Volume 93 fL (79-100) Mean Corpuscular Hemoglobin 31 pg (25-35) Mean Corpuscular Hemoglobin Concent 33 g/dL (31-37) Red Cell Distribution Width 13.0 % (11.5-14.5) Platelet Count 264 x10^3/uL (140-400) Neutrophils (%) (Auto) 72 % (31-73) Lymphocytes (%) (Auto) 17 % (24-48) Monocytes (%) (Auto) 7 % (0-9) Eosinophils (%) (Auto) 3 % (0-3) Basophils (%) (Auto) 0 % (0-3) Neutrophils # (Auto) 9.0 x10^3uL (1.8-7.7) Lymphocytes # (Auto) 2.2 x10^3/uL (1.0-4.8) Monocytes # (Auto) 0.8 x10^3/uL (0.0-1.1) Eosinophils # (Auto) 0.4 x10^3/uL (0.0-0.7) Basophils # (Auto) 0.1 x10^3/uL (0.0-0.2) Erythrocyte Sedimentation Rate 39 (0-15) Blood Urea Nitrogen 19 mg/dL (8-26) Creatinine 0.9 mg/dL (0.7-1.3) Estimated GFR (Cockcroft-Gault) 92.1 Assessment and Plan Assessmemt and Plan Problems Medical Problems: (1) Tenosynovitis of finger Status: Acute Comment Review of Relevant I have reviewed the following items rony (where applicable) has been applied. Labs Laboratory Tests Test 10/15/18 03:30 10/15/18 11:50 10/16/18 06:40 Vancomycin Level Trough 14.0 mcg/mL (10.0-20.0) Vancomycin Last Dose Date Vancomycin Last Dose Time White Blood Count 12.5 x10^3/uL (4.0-11.0) Red Blood Count 4.76 x10^6/uL (4.30-5.70) Hemoglobin 14.5 g/dL (13.0-17.5) Hematocrit 44.3 % (39.0-53.0) Mean Corpuscular Volume 93 fL (79-100) Mean Corpuscular Hemoglobin 31 pg (25-35) Mean Corpuscular Hemoglobin Concent 33 g/dL (31-37) Red Cell Distribution Width 13.0 % (11.5-14.5) Platelet Count 264 x10^3/uL (140-400) Neutrophils (%) (Auto) 72 % (31-73) Lymphocytes (%) (Auto) 17 % (24-48) Monocytes (%) (Auto) 7 % (0-9) Eosinophils (%) (Auto) 3 % (0-3) Basophils (%) (Auto) 0 % (0-3) Neutrophils # (Auto) 9.0 x10^3uL (1.8-7.7) Lymphocytes # (Auto) 2.2 x10^3/uL (1.0-4.8) Monocytes # (Auto) 0.8 x10^3/uL (0.0-1.1) Eosinophils # (Auto) 0.4 x10^3/uL (0.0-0.7) Basophils # (Auto) 0.1 x10^3/uL (0.0-0.2) Erythrocyte Sedimentation Rate 39 (0-15) Blood Urea Nitrogen 19 mg/dL (8-26) Creatinine 0.9 mg/dL (0.7-1.3) Estimated GFR (Cockcroft-Gault) 92.1 Laboratory Tests Test 10/15/18 11:50 10/16/18 06:40 White Blood Count 12.5 x10^3/uL (4.0-11.0) Red Blood Count 4.76 x10^6/uL (4.30-5.70) Hemoglobin 14.5 g/dL (13.0-17.5) Hematocrit 44.3 % (39.0-53.0) Mean Corpuscular Volume 93 fL (79-100) Mean Corpuscular Hemoglobin 31 pg (25-35) Mean Corpuscular Hemoglobin Concent 33 g/dL (31-37) Red Cell Distribution Width 13.0 % (11.5-14.5) Platelet Count 264 x10^3/uL (140-400) Neutrophils (%) (Auto) 72 % (31-73) Lymphocytes (%) (Auto) 17 % (24-48) Monocytes (%) (Auto) 7 % (0-9) Eosinophils (%) (Auto) 3 % (0-3) Basophils (%) (Auto) 0 % (0-3) Neutrophils # (Auto) 9.0 x10^3uL (1.8-7.7) Lymphocytes # (Auto) 2.2 x10^3/uL (1.0-4.8) Monocytes # (Auto) 0.8 x10^3/uL (0.0-1.1) Eosinophils # (Auto) 0.4 x10^3/uL (0.0-0.7) Basophils # (Auto) 0.1 x10^3/uL (0.0-0.2) Erythrocyte Sedimentation Rate 39 (0-15) Blood Urea Nitrogen 19 mg/dL (8-26) Creatinine 0.9 mg/dL (0.7-1.3) Estimated GFR (Cockcroft-Gault) 92.1 Microbiology 10/11/18 Blood Culture - Preliminary, Resulted NO GROWTH AFTER 4 DAYS 10/12/18 Anaerobic/Aerobic Culture - Final, Complete 10/12/18 Anaerobic Culture Result 1 (MICHAEL) - Final, Complete 10/12/18 Aerobic Culture - Final, Complete 10/12/18 Aerobic Culture Result 1 (MICHAEL) - Final, Complete 10/12/18 Gram Stain - Final, Complete 10/12/18 Gram Stain Result 1 (MICHAEL) - Final, Complete 10/12/18 Gram Stain Result 2 (MICHAEL) - Final, Complete Medications Current Medications Ceftriaxone Sodium (Rocephin) 1 gm 1X ONCE IVP Last administered on 10/11/18at 22:31; Start 10/11/18 at 22:30; Stop 10/11/18 at 22:31; Status DC Vancomycin HCl 250 ml @ 250 mls/hr 1X ONCE IV ; Start 10/11/18 at 21:45; Stop 10/11/18 at 22:44; Status UNV Diphtheria/ Tetanus/Acell Pertussis (Boostrix) 0.5 ml ONCE ONCE VAX IM Last administered on 10/11/18at 22:34; Start 10/11/18 at 22:30; Stop 10/11/18 at 22:31; Status DC Morphine Sulfate (Morphine Sulfate) 4 mg 1X ONCE IV Last administered on 10/11/18at 22:31; Start 10/11/18 at 22:30; Stop 10/11/18 at 22:31; Status DC Ondansetron HCl (Zofran) 4 mg PRN Q8HRS PRN IV NAUSEA/VOMITING 1ST CHOICE Last administered on 10/11/18at 22:30; Start 10/11/18 at 22:15; Stop 10/12/18 at 22:14; Status DC Morphine Sulfate (Morphine Sulfate) 4 mg PRN Q2HR PRN IV SEVERE PAIN Last administered on 10/12/18at 19:26; Start 10/11/18 at 22:15; Stop 10/12/18 at 22:14; Status DC Vancomycin HCl 1.75 gm/Sodium Chloride 500 ml @ 250 mls/hr 1X ONCE IV Last administered on 10/11/18at 22:35; Start 10/11/18 at 23:00; Stop 10/12/18 at 00:59; Status DC Vancomycin HCl (Vanco Per Pharmacy) 1 each PRN DAILY PRN MC SEE COMMENTS Last administered on 10/15/18at 05:42; Start 10/11/18 at 22:30 Vancomycin HCl 1 gm/Sodium Chloride 250 ml @ 250 mls/hr Q12H IV Last administered on 10/12/18at 23:39; Start 10/12/18 at 11:00; Stop 10/13/18 at 11:02; Status DC Vancomycin HCl (Vancomycin Trough Level) 1 each 1X ONCE MC Last administered on 10/13/18at 10:30; Start 10/13/18 at 10:30; Stop 10/13/18 at 10:31; Status DC Fentanyl Citrate (Fentanyl 2ml Vial) 100 mcg STK-MED ONCE .ROUTE ; Start 10/12/18 at 10:22; Stop 10/12/18 at 10:23; Status DC Midazolam HCl (Versed) 2 mg STK-MED ONCE .ROUTE ; Start 10/12/18 at 10:22; Stop 10/12/18 at 10:23; Status DC Propofol 20 ml @ As Directed STK-MED ONCE IV ; Start 10/12/18 at 10:22; Stop 10/12/18 at 10:23; Status DC Dexamethasone Sodium Phosphate (Decadron) 4 mg STK-MED ONCE .ROUTE ; Start 10/12/18 at 10:22; Stop 10/12/18 at 10:23; Status DC Ondansetron HCl (Zofran) 4 mg STK-MED ONCE .ROUTE ; Start 10/12/18 at 10:22; Stop 10/12/18 at 10:23; Status DC Ondansetron HCl (Zofran) 4 mg PRN Q6HRS PRN IV NAUSEA/VOMITING; Start 10/12/18 at 13:00; Stop 10/13/18 at 12:59; Status DC Fentanyl Citrate (Fentanyl 2ml Vial) 25 mcg PRN Q5MIN PRN IV MILD PAIN; Start 10/12/18 at 13:00; Stop 10/13/18 at 12:59; Status DC Fentanyl Citrate (Fentanyl 2ml Vial) 50 mcg PRN Q5MIN PRN IV MODERATE TO SEVERE PAIN; Start 10/12/18 at 13:00; Stop 10/13/18 at 12:59; Status DC Morphine Sulfate (Morphine Sulfate) 1 mg PRN Q10MIN PRN IV SEVERE PAIN Last administered on 10/12/18at 14:41; Start 10/12/18 at 13:00; Stop 10/13/18 at 12:59; Status DC Ringer's Solution 1,000 ml @ 30 mls/hr Q24H IV ; Start 10/12/18 at 12:50; Stop 10/13/18 at 00:49; Status DC Hydromorphone HCl (Dilaudid) 0.5 mg PRN Q10MIN PRN IV SEV PAIN, Second choice; Start 10/12/18 at 13:00; Stop 10/13/18 at 12:59; Status DC Prochlorperazine Edisylate (Compazine) 5 mg PACU PRN PRN IV NAUSEA, MRX1; Start 10/12/18 at 13:00; Stop 10/13/18 at 12:59; Status DC Multivitamins 10 ml/Thiamine HCl 100 mg/Folic Acid 1 mg/Sodium Chloride 1,011.2 ml @ 100 mls/ hr DAILY IV Last administered on 10/12/18at 14:00; Start 10/12/18 at 14:00; Stop 10/13/18 at 10:49; Status DC Folic Acid (Folic Acid) 1 mg DAILY PO ; Start 10/13/18 at 09:00; Status UNV Lorazepam (Ativan) 2 mg Q6H PO Last administered on 10/12/18at 13:00; Start 10/12/18 at 13:00; Stop 10/13/18 at 00:32; Status DC Lorazepam (Ativan) 2 mg PRN Q1HR PRN IV For CIWA 8-14 Last administered on 10/15/18at 20:00; Start 10/12/18 at 23:15 Lorazepam (Ativan) 4 mg PRN Q1HR PRN IV For CIWA 15 or greater; Start 10/12/18 at 23:15 Diphenhydramine HCl (Benadryl) 25 mg PRN Q6HRS PRN PO ITCHING Last administered on 10/14/18at 18:26; Start 10/12/18 at 23:15 Quetiapine Fumarate (SEROquel) 50 mg PRN QHS PRN PO sleep Last administered on 10/14/18at 23:24; Start 10/12/18 at 23:15 Morphine Sulfate (Morphine Sulfate) 4 mg PRN Q2HR PRN IV SEVERE PAIN Last administered on 10/15/18 20:01; Start 10/13/18 at 06:15 Oxycodone/ Acetaminophen (Percocet 5/325) 1 tab PRN Q4HRS PRN PO SEVERE PAIN Last administered on 10/15/18 15:37; Start 10/13/18 at 06:15 Folic Acid (Folic Acid) 1 mg DAILY PO Last administered on 10/15/18 08:09; Start 10/13/18 at 11:00 Thiamine Mononitrate (Vitamin B-1) 100 mg DAILY PO Last administered on 10/15/18 08:09; Start 10/13/18 at 11:00 Ceftriaxone Sodium (Rocephin) 1 gm Q24H IVP Last administered on 10/15/18 11:20; Start 10/13/18 at 11:00 Vancomycin HCl 1.25 gm/Sodium Chloride 250 ml @ 166.667 mls/hr 1X ONCE IV Last administered on 10/13/18at 13:38; Start 10/13/18 at 12:00; Stop 10/13/18 at 13:29; Status DC Vancomycin HCl 1 gm/Sodium Chloride 250 ml @ 250 mls/hr Q8H IV Last administered on 10/16/18 05:15; Start 10/13/18 at 20:00 Vancomycin HCl (Vancomycin Trough Level) 1 each 1X ONCE MC Last administered on 10/15/18at 03:30; Start 10/15/18 at 03:30; Stop 10/15/18 at 03:31; Status DC Lactobacillus Rhamnosus (Culturelle) 1 cap BID PO Last administered on 10/15/18at 20:00; Start 10/14/18 at 21:00 Vitals/I & O Vital Sign - Last 24 Hours 10/15/18 10/15/18 10/15/18 10/15/18 08:11 11:00 11:21 13:30 Temp 98.3 98.3 Pulse 80 Resp 18 18 18 B/P (MAP) 126/87 (100) Pulse Ox 94 96 94 94 O2 Delivery Room Air Room Air Room Air Room Air O2 Flow Rate 10.0 10.0 10.0 10/15/18 10/15/18 10/15/18 10/15/18 14:00 15:00 15:37 16:37 Temp 98.5 98.5 Pulse 100 Resp 18 18 18 B/P (MAP) 141/95 (110) Pulse Ox 96 94 94 O2 Delivery Room Air Room Air Room Air O2 Flow Rate 10.0 10.0 10.0 10/15/18 10/15/18 10/15/18 10/15/18 19:00 20:01 20:03 21:09 Temp 98.8 98.8 Pulse 94 Resp 18 18 18 B/P (MAP) 148/95 (112) Pulse Ox 98 94 94 O2 Delivery Room Air Room Air Room Air Room Air 10/15/18 10/16/18 22:49 02:49 Temp 98.7 98.4 98.7 98.4 Pulse 106 99 Resp 18 18 B/P (MAP) 143/97 (112) 139/89 (106) Pulse Ox 98 98 O2 Delivery Room Air Room Air Intake and Output 10/15/18 10/15/18 10/16/18 14:59 22:59 06:59 Intake Total 960 ml 250 ml 490 ml Balance 960 ml 250 ml 490 ml ROCIO BELCHER MD October 16, 2018 08:08
[2018-10-16] MEDS: FOLIC ACID 1 MG TABLET. PO SCH (08:59)
[2018-10-16] MEDS: LACTOBACILLUS RHAMNOSUS GG 1 CAPSULE. PO SCH ×2 (08:59→20:20)
[2018-10-16] MEDS: THIAMINE 100 MG TABLET. PO SCH (09:00)
[2018-10-16] MEDS: oxyCODONE/APAP 5/325 1 TAB TABLET PO PRN ×2 (09:00→13:55)
[2018-10-16] MEDS: VANCOMYCIN PER PHARMACY MC PRN (09:23)
[2018-10-16 10:19] LABS: CALCIUM 9.3 mg/dL (8.5-10.1); GFR 81.6; POTASSIUM 4.2 mmol/L (3.5-5.1)
[2018-10-16 10:21] LABS: BASO # 0.1 x10^3/uL (0.0-0.2); BASO % 1 % (0-3); EOS # 0.4 x10^3/uL (0.0-0.7); EOS % 5 % (0-3); HEMATOCRIT 43.5 % (39.0-53.0); HEMOGLOBIN 14.5 g/dL (13.0-17.5); LYMPH # 1.5 x10^3/uL (1.0-4.8); LYMPH % 16 % (24-48); MEAN CORPUSCULAR HEMOGLOBIN 31 pg (25-35); MEAN CORPUSCULAR HGB CONC 33 g/dL (31-37); MEAN CORPUSCULAR VOLUME 92 fL (79-100); MONO # 0.7 x10^3/uL (0.0-1.1); MONO % 7 % (0-9); NEUT # 6.8 x10^3uL (1.8-7.7); NEUT % 71 % (31-73); PLATELET COUNT 284 x10^3/uL (140-400); RED BLOOD COUNT 4.74 x10^6/uL (4.30-5.70); RED CELL DISTRIBUTION WIDTH 12.9 % (11.5-14.5); WHITE BLOOD COUNT 9.5 x10^3/uL (4.0-11.0)
--- NOTE | 2018-10-16 10:45 | NUR ---
SW following pt for anticipated dc needs. Chart reviewed. Pt lives at home with family and is self pay. ID and wound care following pt. No dc recommendation noted at this time. Will continue to eval needs.
[2018-10-16 11:00] VITALS: BP 134/96
[2018-10-16] MEDS: MORPHINE SULFATE 4 MG/ML VIAL. IV PRN ×2 (11:30→20:30)
[2018-10-16] MEDS: cefTRIAXone IV Push 1 GM VIAL. IVP SCH (11:50)
--- NOTE | 2018-10-16 13:12 | NUR ---
Morphine 4mg given at 1130 IV Push did not hit save on meditech so I had to go back in and administer through system again.
--- NOTE | 2018-10-16 13:20 | PDOC ---
Infectious Disease Note Subjective Subjective c/o some pain No F/C/S/N/V/D ROS ROS per HPI Vital Sign Vital Signs Vital Signs Date Time Temp Pulse Resp B/P (MAP) Pulse Ox O2 Delivery O2 Flow Rate FiO2 10/16/18 11:30 16 Room Air 10/16/18 11:00 98.2 107 134/96 (109) 98 98.2 10/15/18 16:37 10.0 Physical Exam PHYSICAL EXAM GENERAL: Propped up in bed, unwrapping dressing HEENT: Oral cavity clear NECK: Supple. . LUNGS: Clear. HEART: S1, S2 regular. 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 SKIN: No rash PIV Labs Lab Laboratory Tests Test 10/16/18 06:40 White Blood Count 9.5 x10^3/uL (4.0-11.0) Red Blood Count 4.74 x10^6/uL (4.30-5.70) Hemoglobin 14.5 g/dL (13.0-17.5) Hematocrit 43.5 % (39.0-53.0) Mean Corpuscular Volume 92 fL (79-100) Mean Corpuscular Hemoglobin 31 pg (25-35) Mean Corpuscular Hemoglobin Concent 33 g/dL (31-37) Red Cell Distribution Width 12.9 % (11.5-14.5) Platelet Count 284 x10^3/uL (140-400) Neutrophils (%) (Auto) 71 % (31-73) Lymphocytes (%) (Auto) 16 % (24-48) Monocytes (%) (Auto) 7 % (0-9) Eosinophils (%) (Auto) 5 % (0-3) Basophils (%) (Auto) 1 % (0-3) Neutrophils # (Auto) 6.8 x10^3uL (1.8-7.7) Lymphocytes # (Auto) 1.5 x10^3/uL (1.0-4.8) Monocytes # (Auto) 0.7 x10^3/uL (0.0-1.1) Eosinophils # (Auto) 0.4 x10^3/uL (0.0-0.7) Basophils # (Auto) 0.1 x10^3/uL (0.0-0.2) Sodium Level 140 mmol/L (136-145) Potassium Level 4.2 mmol/L (3.5-5.1) Chloride Level 102 mmol/L (98-107) Carbon Dioxide Level 28 mmol/L (21-32) Anion Gap 10 (6-14) Blood Urea Nitrogen 18 mg/dL (8-26) Creatinine 1.0 mg/dL (0.7-1.3) Estimated GFR (Cockcroft-Gault) 81.6 Glucose Level 103 mg/dL (70-99) Calcium Level 9.3 mg/dL (8.5-10.1) Procalcitonin < 0.10 ng/mL (0.00-0.10) Micro Microbiology 10/11/18 Blood Culture - Preliminary, Resulted NO GROWTH AFTER 4 DAYS ANAEROBIC RES 1 Final Comment No anaerobic growth in 72 hours. AEROBIC CULT Final Final report AEROBIC RES 1 Final Comment No growth in 56 - 72 hours. GRAM STAIN Final Final report GRAM STAIN RES 1 Final No organisms seen GRAM STAIN RES 2 Final Comment No white blood cells seen. Objective Assessment Right middle finger swelling and pain with infection. s/p I and D on 10/12. cultures NGTD Tenosynovitis. Right middle finger cellulitis/abscess. Plan Plan of Care Vanc and Rocephin Trough 14.0 Probiotics f/u am labs Local wound care as directed Patient seen, examined, I agree with above Assessment and plan by [facility]. GAGAN CISSE APRN October 16, 2018 13:20 ANTWAN DIAZ MD October 16, 2018 13:58
[2018-10-16 15:00] VITALS: BP 130/92
[2018-10-16 19:00] VITALS: BP 135/96
[2018-10-16] MEDS: DOCUSATE SODIUM 100 MG CAPSULE. PO SCH (20:21)
[2018-10-16 23:00] VITALS: BP 147/90
[2018-10-17] MEDS: oxyCODONE/APAP 5/325 1 TAB TABLET PO PRN ×4 (00:42→18:21)
[2018-10-17] MEDS: QUEtiapine 25 MG TABLET. PO PRN (00:43)
[2018-10-17 03:00] VITALS: BP 125/80
[2018-10-17] MEDS: VANCOMYCIN 1 GM in IV NORMAL SALINE 250ML 250 ML IV SCH ×3 (04:03→20:43)
[2018-10-17] MEDS: MORPHINE SULFATE 4 MG/ML VIAL. IV PRN ×4 (04:10→20:48)
[2018-10-17 07:00] VITALS: BP 124/89
[2018-10-17] MEDS: FOLIC ACID 1 MG TABLET. PO SCH (08:30)
[2018-10-17] MEDS: THIAMINE 100 MG TABLET. PO SCH (08:30)
[2018-10-17] MEDS: LACTOBACILLUS RHAMNOSUS GG 1 CAPSULE. PO SCH ×2 (08:30→20:43)
[2018-10-17] MEDS: DOCUSATE SODIUM 100 MG CAPSULE. PO SCH ×2 (08:30→20:43)
--- NOTE | 2018-10-17 10:22 | PDOC ---
PROGRESS NOTES History of Present Illness History of Present Illness VTE Prophylaxis Ordered VTE Prophylaxis Devices: Yes VTE Pharmacological Prophylaxi: Yes Assessment/Plan Assessment/Plan IMPRESSION Acute tenosynovitis No evidence of acute fracture or dislocation. Soft tissue swelling of the third finger, consider inflammatory or infectious etiology. tobacco abuse ALCOHOL ABUSE HX middle finger remains sore , has fair ROM 5/4 ROM BETTER TODAY plan iv antibiotics ortho consult npo iv vancomycin iv rocephin ID CONSULT IV FLUID SUPPORT ALCOHOL WITHDRAWAL PRECAUTIONS low risk for post-op complications dvt prophylaxis 35 MIN PT EXAM, CHART REVIEW, > 50% OF TIME SPENT WITH EXAM, CHART REVIEW, PT CARE COORDINATION Vitals Vitals Vital Signs Date Time Temp Pulse Resp B/P (MAP) Pulse Ox O2 Delivery O2 Flow Rate FiO2 10/17/18 08:30 Room Air 10/17/18 07:00 98.0 79 18 124/89 (101) 98 98.0 Physical Exam Physical Exam GENERAL: Propped up in bed, unwrapping dressing HEENT: Oral cavity clear NECK: Supple. . LUNGS: Clear. HEART: S1, S2 regular. ABDOMEN: Soft and nontender EXTREMITIES: Right middle finger slightly swollen, + ROM, no redness or drainage, sutures in place, ROPE TIER: Alert and oriented SKIN: No rash PIV General: Alert, Oriented X3, Cooperative, No acute distress, mild distress Heart: Regular rate, Normal S1, Normal S2, No murmurs Lungs: Clear Abdomen: Normal bowel sounds, Soft Extremities: No clubbing, No cyanosis Skin: No significant lesion Assessment and Plan Assessmemt and Plan Problems Medical Problems: (1) Tenosynovitis of finger Status: Acute Comment Review of Relevant I have reviewed the following items rony (where applicable) has been applied. Labs Laboratory Tests Test 10/15/18 11:50 10/16/18 06:40 White Blood Count 12.5 x10^3/uL (4.0-11.0) 9.5 x10^3/uL (4.0-11.0) Red Blood Count 4.76 x10^6/uL (4.30-5.70) 4.74 x10^6/uL (4.30-5.70) Hemoglobin 14.5 g/dL (13.0-17.5) 14.5 g/dL (13.0-17.5) Hematocrit 44.3 % (39.0-53.0) 43.5 % (39.0-53.0) Mean Corpuscular Volume 93 fL (79-100) 92 fL (79-100) Mean Corpuscular Hemoglobin 31 pg (25-35) 31 pg (25-35) Mean Corpuscular Hemoglobin Concent 33 g/dL (31-37) 33 g/dL (31-37) Red Cell Distribution Width 13.0 % (11.5-14.5) 12.9 % (11.5-14.5) Platelet Count 264 x10^3/uL (140-400) 284 x10^3/uL (140-400) Neutrophils (%) (Auto) 72 % (31-73) 71 % (31-73) Lymphocytes (%) (Auto) 17 % (24-48) 16 % (24-48) Monocytes (%) (Auto) 7 % (0-9) 7 % (0-9) Eosinophils (%) (Auto) 3 % (0-3) 5 % (0-3) Basophils (%) (Auto) 0 % (0-3) 1 % (0-3) Neutrophils # (Auto) 9.0 x10^3uL (1.8-7.7) 6.8 x10^3uL (1.8-7.7) Lymphocytes # (Auto) 2.2 x10^3/uL (1.0-4.8) 1.5 x10^3/uL (1.0-4.8) Monocytes # (Auto) 0.8 x10^3/uL (0.0-1.1) 0.7 x10^3/uL (0.0-1.1) Eosinophils # (Auto) 0.4 x10^3/uL (0.0-0.7) 0.4 x10^3/uL (0.0-0.7) Basophils # (Auto) 0.1 x10^3/uL (0.0-0.2) 0.1 x10^3/uL (0.0-0.2) Erythrocyte Sedimentation Rate 39 (0-15) Sodium Level 140 mmol/L (136-145) Potassium Level 4.2 mmol/L (3.5-5.1) Chloride Level 102 mmol/L (98-107) Carbon Dioxide Level 28 mmol/L (21-32) Anion Gap 10 (6-14) Blood Urea Nitrogen 18 mg/dL (8-26) Creatinine 1.0 mg/dL (0.7-1.3) Estimated GFR (Cockcroft-Gault) 81.6 Glucose Level 103 mg/dL (70-99) Calcium Level 9.3 mg/dL (8.5-10.1) Procalcitonin < 0.10 ng/mL (0.00-0.10) Microbiology 10/11/18 Blood Culture - Final, Complete NO GROWTH AFTER 5 DAYS 10/12/18 Anaerobic/Aerobic Culture - Final, Complete 10/12/18 Anaerobic Culture Result 1 (MICHAEL) - Final, Complete 10/12/18 Aerobic Culture - Final, Complete 10/12/18 Aerobic Culture Result 1 (MICHAEL) - Final, Complete 10/12/18 Gram Stain - Final, Complete 10/12/18 Gram Stain Result 1 (MICHAEL) - Final, Complete 10/12/18 Gram Stain Result 2 (MICHAEL) - Final, Complete Medications Current Medications Ceftriaxone Sodium (Rocephin) 1 gm 1X ONCE IVP Last administered on 10/11/18at 22:31; Start 10/11/18 at 22:30; Stop 10/11/18 at 22:31; Status DC Vancomycin HCl 250 ml @ 250 mls/hr 1X ONCE IV ; Start 10/11/18 at 21:45; Stop 10/11/18 at 22:44; Status UNV Diphtheria/ Tetanus/Acell Pertussis (Boostrix) 0.5 ml ONCE ONCE VAX IM Last administered on 10/11/18at 22:34; Start 10/11/18 at 22:30; Stop 10/11/18 at 22:31; Status DC Morphine Sulfate (Morphine Sulfate) 4 mg 1X ONCE IV Last administered on 10/11/18at 22:31; Start 10/11/18 at 22:30; Stop 10/11/18 at 22:31; Status DC Ondansetron HCl (Zofran) 4 mg PRN Q8HRS PRN IV NAUSEA/VOMITING 1ST CHOICE Last administered on 10/11/18at 22:30; Start 10/11/18 at 22:15; Stop 10/12/18 at 22:14; Status DC Morphine Sulfate (Morphine Sulfate) 4 mg PRN Q2HR PRN IV SEVERE PAIN Last administered on 10/12/18at 19:26; Start 10/11/18 at 22:15; Stop 10/12/18 at 22:14; Status DC Vancomycin HCl 1.75 gm/Sodium Chloride 500 ml @ 250 mls/hr 1X ONCE IV Last administered on 10/11/18at 22:35; Start 10/11/18 at 23:00; Stop 10/12/18 at 00:59; Status DC Vancomycin HCl (Vanco Per Pharmacy) 1 each PRN DAILY PRN MC SEE COMMENTS Last administered on 10/16/18at 09:23; Start 10/11/18 at 22:30 Vancomycin HCl 1 gm/Sodium Chloride 250 ml @ 250 mls/hr Q12H IV Last administered on 10/12/18at 23:39; Start 10/12/18 at 11:00; Stop 10/13/18 at 11:02; Status DC Vancomycin HCl (Vancomycin Trough Level) 1 each 1X ONCE MC Last administered on 10/13/18at 10:30; Start 10/13/18 at 10:30; Stop 10/13/18 at 10:31; Status DC Fentanyl Citrate (Fentanyl 2ml Vial) 100 mcg STK-MED ONCE .ROUTE ; Start 10/12/18 at 10:22; Stop 10/12/18 at 10:23; Status DC Midazolam HCl (Versed) 2 mg STK-MED ONCE .ROUTE ; Start 10/12/18 at 10:22; Stop 10/12/18 at 10:23; Status DC Propofol 20 ml @ As Directed STK-MED ONCE IV ; Start 10/12/18 at 10:22; Stop 10/12/18 at 10:23; Status DC Dexamethasone Sodium Phosphate (Decadron) 4 mg STK-MED ONCE .ROUTE ; Start 10/12/18 at 10:22; Stop 10/12/18 at 10:23; Status DC Ondansetron HCl (Zofran) 4 mg STK-MED ONCE .ROUTE ; Start 10/12/18 at 10:22; Stop 10/12/18 at 10:23; Status DC Ondansetron HCl (Zofran) 4 mg PRN Q6HRS PRN IV NAUSEA/VOMITING; Start 10/12/18 at 13:00; Stop 10/13/18 at 12:59; Status DC Fentanyl Citrate (Fentanyl 2ml Vial) 25 mcg PRN Q5MIN PRN IV MILD PAIN; Start 10/12/18 at 13:00; Stop 10/13/18 at 12:59; Status DC Fentanyl Citrate (Fentanyl 2ml Vial) 50 mcg PRN Q5MIN PRN IV MODERATE TO SEVERE PAIN; Start 10/12/18 at 13:00; Stop 10/13/18 at 12:59; Status DC Morphine Sulfate (Morphine Sulfate) 1 mg PRN Q10MIN PRN IV SEVERE PAIN Last administered on 10/12/18at 14:41; Start 10/12/18 at 13:00; Stop 10/13/18 at 12:59; Status DC Ringer's Solution 1,000 ml @ 30 mls/hr Q24H IV ; Start 10/12/18 at 12:50; Stop 10/13/18 at 00:49; Status DC Hydromorphone HCl (Dilaudid) 0.5 mg PRN Q10MIN PRN IV SEV PAIN, Second choice; Start 10/12/18 at 13:00; Stop 10/13/18 at 12:59; Status DC Prochlorperazine Edisylate (Compazine) 5 mg PACU PRN PRN IV NAUSEA, MRX1; Start 10/12/18 at 13:00; Stop 10/13/18 at 12:59; Status DC Multivitamins 10 ml/Thiamine HCl 100 mg/Folic Acid 1 mg/Sodium Chloride 1,011.2 ml @ 100 mls/ hr DAILY IV Last administered on 10/12/18at 14:00; Start 10/12/18 at 14:00; Stop 10/13/18 at 10:49; Status DC Folic Acid (Folic Acid) 1 mg DAILY PO ; Start 10/13/18 at 09:00; Status UNV Lorazepam (Ativan) 2 mg Q6H PO Last administered on 10/12/18at 13:00; Start 10/12/18 at 13:00; Stop 10/13/18 at 00:32; Status DC Lorazepam (Ativan) 2 mg PRN Q1HR PRN IV For CIWA 8-14 Last administered on 10/16/18at 14:03; Start 10/12/18 at 23:15 Lorazepam (Ativan) 4 mg PRN Q1HR PRN IV For CIWA 15 or greater; Start 10/12/18 at 23:15 Diphenhydramine HCl (Benadryl) 25 mg PRN Q6HRS PRN PO ITCHING Last administered on 10/14/18 18:26; Start 10/12/18 at 23:15 Quetiapine Fumarate (SEROquel) 50 mg PRN QHS PRN PO sleep Last administered on 10/17/18 00:43; Start 10/12/18 at 23:15 Morphine Sulfate (Morphine Sulfate) 4 mg PRN Q2HR PRN IV SEVERE PAIN Last administered on 10/17/18 04:10; Start 10/13/18 at 06:15 Oxycodone/ Acetaminophen (Percocet 5/325) 1 tab PRN Q4HRS PRN PO SEVERE PAIN Last administered on 10/17/18 08:30; Start 10/13/18 at 06:15 Folic Acid (Folic Acid) 1 mg DAILY PO Last administered on 10/17/18 08:30; Start 10/13/18 at 11:00 Thiamine Mononitrate (Vitamin B-1) 100 mg DAILY PO Last administered on 10/17/18 08:30; Start 10/13/18 at 11:00 Ceftriaxone Sodium (Rocephin) 1 gm Q24H IVP Last administered on 10/16/18 11:50; Start 10/13/18 at 11:00 Vancomycin HCl 1.25 gm/Sodium Chloride 250 ml @ 166.667 mls/hr 1X ONCE IV Last administered on 10/13/18 13:38; Start 10/13/18 at 12:00; Stop 10/13/18 at 13:29; Status DC Vancomycin HCl 1 gm/Sodium Chloride 250 ml @ 250 mls/hr Q8H IV Last administered on 10/17/18 04:03; Start 10/13/18 at 20:00 Vancomycin HCl (Vancomycin Trough Level) 1 each 1X ONCE MC Last administered on 10/15/18 03:30; Start 10/15/18 at 03:30; Stop 10/15/18 at 03:31; Status DC Lactobacillus Rhamnosus (Culturelle) 1 cap BID PO Last administered on 10/17/18 08:30; Start 10/14/18 at 21:00 Docusate Sodium (Colace) 100 mg BID PO Last administered on 5/5/19at 08:30; Start 10/16/18 at 21:00 Vitals/I & O Vital Sign - Last 24 Hours 10/16/18 10/16/18 10/16/18 10/16/18 11:00 11:30 13:55 15:00 Temp 98.2 98.1 98.2 98.1 Pulse 107 93 Resp 16 16 18 18 B/P (MAP) 134/96 (109) 130/92 (105) Pulse Ox 98 96 O2 Delivery Room Air Room Air Room Air Room Air 10/16/18 10/16/18 10/16/18 10/16/18 19:00 20:00 20:30 21:00 Temp 98.3 98.3 Pulse 86 Resp 14 20 18 B/P (MAP) 135/96 (109) Pulse Ox 97 97 96 O2 Delivery Room Air Room Air Room Air 10/16/18 10/17/18 10/17/18 10/17/18 23:00 00:42 01:42 03:00 Temp 98.2 97.6 98.2 97.6 Pulse 78 82 Resp 16 20 18 16 B/P (MAP) 147/90 (109) 125/80 (95) Pulse Ox 96 96 95 95 O2 Delivery Room Air Room Air Room Air Room Air 10/17/18 10/17/18 10/17/18 10/17/18 04:10 07:00 08:30 08:30 Temp 98.0 98.0 Pulse 79 Resp 18 18 B/P (MAP) 124/89 (101) Pulse Ox 95 98 O2 Delivery Room Air Room Air Room Air Room Air Intake and Output 10/16/18 10/16/18 10/17/18 15:00 23:00 07:00 Intake Total 850 ml 700 ml 900 ml Balance 850 ml 700 ml 900 ml ROCIO BELCHER MD October 17, 2018 10:22
[2018-10-17 11:00] VITALS: BP 131/91
[2018-10-17] MEDS: VANCOMYCIN PER PHARMACY MC PRN (11:11)
[2018-10-17] MEDS: cefTRIAXone IV Push 1 GM VIAL. IVP SCH (11:41)
[2018-10-17] MEDS ORDERED: MAGNESIUM HYDROXIDE 2,400 MG/30 ML ORAL.SUSP. PO PRN (12:45)
--- NOTE | 2018-10-17 13:53 | PDOC ---
Infectious Disease Note Subjective Subjective Tired Pain controlled No F/C/N/V ROS ROS per HPI Vital Sign Vital Signs Vital Signs Date Time Temp Pulse Resp B/P (MAP) Pulse Ox O2 Delivery O2 Flow Rate FiO2 10/17/18 12:49 Room Air 10/17/18 11:00 97.6 107 20 131/91 (104) 98 97.6 Physical Exam PHYSICAL EXAM GENERAL: Resting quietly, arouse to name HEENT: Oral cavity clear NECK: Supple LUNGS: Clear. HEART: S1, S2 regular. ABDOMEN: Soft and nontender EXTREMITIES: Right hand bandaged HOME HELP AIDE: Responds appropriately SKIN: No rash PIV Labs Micro Microbiology 10/11/18 Blood Culture - Preliminary, Resulted NO GROWTH AFTER 4 DAYS ANAEROBIC RES 1 Final Comment No anaerobic growth in 72 hours. AEROBIC CULT Final Final report AEROBIC RES 1 Final Comment No growth in 56 - 72 hours. GRAM STAIN Final Final report GRAM STAIN RES 1 Final No organisms seen GRAM STAIN RES 2 Final Comment No white blood cells seen. Objective Assessment Right middle finger swelling and pain with infection. s/p I and D on 10/12. cultures neg Tenosynovitis. Right middle finger cellulitis/abscess. Plan Plan of Care Vanc and Rocephin Trough 14.0 Probiotics f/u am labs Local wound care as directed Pt seen and examined D/W RN Underwent dressing with packing in place, had a lot of drainage earlier Labs and micro data reviewed Agree with above A/P per GAGAN VALDES APRN October 17, 2018 13:53 ANTWAN DIAZ MD October 17, 2018 16:33
[2018-10-17 14:56] VITALS: BP 129/92
[2018-10-17 19:00] VITALS: BP 140/97
[2018-10-17 23:00] VITALS: BP 146/94
[2018-10-18 03:00] VITALS: BP 143/87
[2018-10-18] MEDS: VANCOMYCIN 1 GM in IV NORMAL SALINE 250ML 250 ML IV SCH ×3 (04:56→21:31)
[2018-10-18 07:00] VITALS: BP 140/94
[2018-10-18 08:52] LABS: BASO % 0 % (0-3); EOS # 0.5 x10^3/uL (0.0-0.7); EOS % 6 % (0-3); HEMATOCRIT 44.1 % (39.0-53.0); HEMOGLOBIN 14.3 g/dL (13.0-17.5); LYMPH # 1.5 x10^3/uL (1.0-4.8); LYMPH % 19 % (24-48); MEAN CORPUSCULAR HEMOGLOBIN 30 pg (25-35); MEAN CORPUSCULAR HGB CONC 33 g/dL (31-37); MEAN CORPUSCULAR VOLUME 92 fL (79-100); MONO # 0.6 x10^3/uL (0.0-1.1); MONO % 7 % (0-9); NEUT # 5.4 x10^3uL (1.8-7.7); NEUT % 68 % (31-73); PLATELET COUNT 377 x10^3/uL (140-400); RED CELL DISTRIBUTION WIDTH 13.1 % (11.5-14.5); WHITE BLOOD COUNT 7.9 x10^3/uL (4.0-11.0)
[2018-10-18 09:08] LABS: ALBUMIN 2.9 g/dL (3.4-5.0); ALBUMIN/GLOBULIN RATIO 0.7 (1.0-1.7); CALCIUM 9.1 mg/dL (8.5-10.1); GFR 81.6; POTASSIUM 4.4 mmol/L (3.5-5.1); TOTAL BILIRUBIN 0.2 mg/dL (0.2-1.0); TOTAL PROTEIN 6.9 g/dL (6.4-8.2)
[2018-10-18] MEDS: THIAMINE 100 MG TABLET. PO SCH (09:26)
[2018-10-18] MEDS: LACTOBACILLUS RHAMNOSUS GG 1 CAPSULE. PO SCH ×2 (09:26→21:31)
[2018-10-18] MEDS: oxyCODONE/APAP 5/325 1 TAB TABLET PO PRN (09:27)
[2018-10-18] MEDS: FOLIC ACID 1 MG TABLET. PO SCH (09:27)
[2018-10-18] MEDS: DOCUSATE SODIUM 100 MG CAPSULE. PO SCH ×2 (09:27→21:31)
[2018-10-18] MEDS: MORPHINE SULFATE 4 MG/ML VIAL. IV PRN ×5 (09:31→21:32)
--- NOTE | 2018-10-18 09:36 | PDOC ---
PROGRESS NOTES Chief Complaint Chief Complaint Right middle finger tenosynovitis status post I&D 10/12 Cultures negative History of Present Illness History of Present Illness No complaints Wants to get home by Thursday because it's his 's birthday on thu ESR 39 Normal white count, no fever On vancomycin and Rocephin per ID Plan we'll await ID recommendations Otherwise CPM Mght be able to dc home soon Vitals Vitals Vital Signs Date Time Temp Pulse Resp B/P (MAP) Pulse Ox O2 Delivery O2 Flow Rate FiO2 10/18/18 09:31 18 Room Air 10/18/18 07:00 98.0 77 140/94 (109) 95 98.0 Physical Exam Physical Exam GENERAL: Resting quietly, arouse to name HEENT: Oral cavity clear NECK: Supple LUNGS: Clear. HEART: S1, S2 regular. 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 SKIN: No rash PIV General: Alert, Oriented X3, Cooperative, No acute distress, mild distress Heart: Regular rate, Normal S1, Normal S2, No murmurs Lungs: Clear Abdomen: Normal bowel sounds, Soft Extremities: No clubbing, No cyanosis Skin: No significant lesion Labs LABS Laboratory Tests Test 10/18/18 08:05 White Blood Count 7.9 x10^3/uL (4.0-11.0) Red Blood Count 4.80 x10^6/uL (4.30-5.70) Hemoglobin 14.3 g/dL (13.0-17.5) Hematocrit 44.1 % (39.0-53.0) Mean Corpuscular Volume 92 fL (79-100) Mean Corpuscular Hemoglobin 30 pg (25-35) Mean Corpuscular Hemoglobin Concent 33 g/dL (31-37) Red Cell Distribution Width 13.1 % (11.5-14.5) Platelet Count 377 x10^3/uL (140-400) Neutrophils (%) (Auto) 68 % (31-73) Lymphocytes (%) (Auto) 19 % (24-48) Monocytes (%) (Auto) 7 % (0-9) Eosinophils (%) (Auto) 6 % (0-3) Basophils (%) (Auto) 0 % (0-3) Neutrophils # (Auto) 5.4 x10^3uL (1.8-7.7) Lymphocytes # (Auto) 1.5 x10^3/uL (1.0-4.8) Monocytes # (Auto) 0.6 x10^3/uL (0.0-1.1) Eosinophils # (Auto) 0.5 x10^3/uL (0.0-0.7) Basophils # (Auto) 0.0 x10^3/uL (0.0-0.2) Sodium Level 140 mmol/L (136-145) Potassium Level 4.4 mmol/L (3.5-5.1) Chloride Level 104 mmol/L (98-107) Carbon Dioxide Level 31 mmol/L (21-32) Anion Gap 5 (6-14) Blood Urea Nitrogen 16 mg/dL (8-26) Creatinine 1.0 mg/dL (0.7-1.3) Estimated GFR (Cockcroft-Gault) 81.6 BUN/Creatinine Ratio 16 (6-20) Glucose Level 99 mg/dL (70-99) Calcium Level 9.1 mg/dL (8.5-10.1) Total Bilirubin 0.2 mg/dL (0.2-1.0) Aspartate Amino Transf (AST/SGOT) 26 U/L (15-37) Alanine Aminotransferase (ALT/SGPT) 37 U/L (16-63) Alkaline Phosphatase 87 U/L (46-116) Total Protein 6.9 g/dL (6.4-8.2) Albumin 2.9 g/dL (3.4-5.0) Albumin/Globulin Ratio 0.7 (1.0-1.7) Review of Systems Review of Systems A 14 point ROS was completed with the following noted as positive: Other systems reviewed and negative. \CONSTITUTIONAL: No fever or chills EYES: No recent changes SKIN: No rash or itching CARDIOVASCULAR: No chest pain, syncope, palpitations, or edema RESPIRATORY: No SOB or cough GASTROINTESTINAL: No nausea, vomiting or abdominal pain NEUROLOGICAL: No headaches or weakness ENDOCRINE: No cold or heat intolerance GENITOURINARY: No urgency or frequency of urination MUSCULOSKELETAL: No back pain or joint pain LYMPHATICS: No enlarged lymph nodes PSYCHIATRIC: No anxiety or depression Assessment and Plan Assessmemt and Plan Problems Medical Problems: (1) Tenosynovitis of finger Status: Acute Comment Review of Relevant I have reviewed the following items rony (where applicable) has been applied. Labs Laboratory Tests Test 10/18/18 08:05 White Blood Count 7.9 x10^3/uL (4.0-11.0) Red Blood Count 4.80 x10^6/uL (4.30-5.70) Hemoglobin 14.3 g/dL (13.0-17.5) Hematocrit 44.1 % (39.0-53.0) Mean Corpuscular Volume 92 fL (79-100) Mean Corpuscular Hemoglobin 30 pg (25-35) Mean Corpuscular Hemoglobin Concent 33 g/dL (31-37) Red Cell Distribution Width 13.1 % (11.5-14.5) Platelet Count 377 x10^3/uL (140-400) Neutrophils (%) (Auto) 68 % (31-73) Lymphocytes (%) (Auto) 19 % (24-48) Monocytes (%) (Auto) 7 % (0-9) Eosinophils (%) (Auto) 6 % (0-3) Basophils (%) (Auto) 0 % (0-3) Neutrophils # (Auto) 5.4 x10^3uL (1.8-7.7) Lymphocytes # (Auto) 1.5 x10^3/uL (1.0-4.8) Monocytes # (Auto) 0.6 x10^3/uL (0.0-1.1) Eosinophils # (Auto) 0.5 x10^3/uL (0.0-0.7) Basophils # (Auto) 0.0 x10^3/uL (0.0-0.2) Sodium Level 140 mmol/L (136-145) Potassium Level 4.4 mmol/L (3.5-5.1) Chloride Level 104 mmol/L (98-107) Carbon Dioxide Level 31 mmol/L (21-32) Anion Gap 5 (6-14) Blood Urea Nitrogen 16 mg/dL (8-26) Creatinine 1.0 mg/dL (0.7-1.3) Estimated GFR (Cockcroft-Gault) 81.6 BUN/Creatinine Ratio 16 (6-20) Glucose Level 99 mg/dL (70-99) Calcium Level 9.1 mg/dL (8.5-10.1) Total Bilirubin 0.2 mg/dL (0.2-1.0) Aspartate Amino Transf (AST/SGOT) 26 U/L (15-37) Alanine Aminotransferase (ALT/SGPT) 37 U/L (16-63) Alkaline Phosphatase 87 U/L (46-116) Total Protein 6.9 g/dL (6.4-8.2) Albumin 2.9 g/dL (3.4-5.0) Albumin/Globulin Ratio 0.7 (1.0-1.7) Laboratory Tests Test 10/18/18 08:05 White Blood Count 7.9 x10^3/uL (4.0-11.0) Red Blood Count 4.80 x10^6/uL (4.30-5.70) Hemoglobin 14.3 g/dL (13.0-17.5) Hematocrit 44.1 % (39.0-53.0) Mean Corpuscular Volume 92 fL (79-100) Mean Corpuscular Hemoglobin 30 pg (25-35) Mean Corpuscular Hemoglobin Concent 33 g/dL (31-37) Red Cell Distribution Width 13.1 % (11.5-14.5) Platelet Count 377 x10^3/uL (140-400) Neutrophils (%) (Auto) 68 % (31-73) Lymphocytes (%) (Auto) 19 % (24-48) Monocytes (%) (Auto) 7 % (0-9) Eosinophils (%) (Auto) 6 % (0-3) Basophils (%) (Auto) 0 % (0-3) Neutrophils # (Auto) 5.4 x10^3uL (1.8-7.7) Lymphocytes # (Auto) 1.5 x10^3/uL (1.0-4.8) Monocytes # (Auto) 0.6 x10^3/uL (0.0-1.1) Eosinophils # (Auto) 0.5 x10^3/uL (0.0-0.7) Basophils # (Auto) 0.0 x10^3/uL (0.0-0.2) Sodium Level 140 mmol/L (136-145) Potassium Level 4.4 mmol/L (3.5-5.1) Chloride Level 104 mmol/L (98-107) Carbon Dioxide Level 31 mmol/L (21-32) Anion Gap 5 (6-14) Blood Urea Nitrogen 16 mg/dL (8-26) Creatinine 1.0 mg/dL (0.7-1.3) Estimated GFR (Cockcroft-Gault) 81.6 BUN/Creatinine Ratio 16 (6-20) Glucose Level 99 mg/dL (70-99) Calcium Level 9.1 mg/dL (8.5-10.1) Total Bilirubin 0.2 mg/dL (0.2-1.0) Aspartate Amino Transf (AST/SGOT) 26 U/L (15-37) Alanine Aminotransferase (ALT/SGPT) 37 U/L (16-63) Alkaline Phosphatase 87 U/L (46-116) Total Protein 6.9 g/dL (6.4-8.2) Albumin 2.9 g/dL (3.4-5.0) Albumin/Globulin Ratio 0.7 (1.0-1.7) Microbiology 10/11/18 Blood Culture - Final, Complete NO GROWTH AFTER 5 DAYS 10/12/18 Anaerobic/Aerobic Culture - Final, Complete 10/12/18 Anaerobic Culture Result 1 (MICHAEL) - Final, Complete 10/12/18 Aerobic Culture - Final, Complete 10/12/18 Aerobic Culture Result 1 (MICHAEL) - Final, Complete 10/12/18 Gram Stain - Final, Complete 10/12/18 Gram Stain Result 1 (MICHAEL) - Final, Complete 10/12/18 Gram Stain Result 2 (MICHAEL) - Final, Complete Medications Current Medications Ceftriaxone Sodium (Rocephin) 1 gm 1X ONCE IVP Last administered on 10/11/18at 22:31; Start 10/11/18 at 22:30; Stop 10/11/18 at 22:31; Status DC Vancomycin HCl 250 ml @ 250 mls/hr 1X ONCE IV ; Start 10/11/18 at 21:45; Stop 10/11/18 at 22:44; Status UNV Diphtheria/ Tetanus/Acell Pertussis (Boostrix) 0.5 ml ONCE ONCE VAX IM Last administered on 10/11/18at 22:34; Start 10/11/18 at 22:30; Stop 10/11/18 at 22:31; Status DC Morphine Sulfate (Morphine Sulfate) 4 mg 1X ONCE IV Last administered on 10/11/18at 22:31; Start 10/11/18 at 22:30; Stop 10/11/18 at 22:31; Status DC Ondansetron HCl (Zofran) 4 mg PRN Q8HRS PRN IV NAUSEA/VOMITING 1ST CHOICE Last administered on 10/11/18at 22:30; Start 10/11/18 at 22:15; Stop 10/12/18 at 22:14; Status DC Morphine Sulfate (Morphine Sulfate) 4 mg PRN Q2HR PRN IV SEVERE PAIN Last administered on 10/12/18at 19:26; Start 10/11/18 at 22:15; Stop 10/12/18 at 22:14; Status DC Vancomycin HCl 1.75 gm/Sodium Chloride 500 ml @ 250 mls/hr 1X ONCE IV Last administered on 10/11/18at 22:35; Start 10/11/18 at 23:00; Stop 10/12/18 at 00:59; Status DC Vancomycin HCl (Vanco Per Pharmacy) 1 each PRN DAILY PRN MC SEE COMMENTS Last administered on 10/17/18at 11:11; Start 10/11/18 at 22:30 Vancomycin HCl 1 gm/Sodium Chloride 250 ml @ 250 mls/hr Q12H IV Last administered on 10/12/18at 23:39; Start 10/12/18 at 11:00; Stop 10/13/18 at 11:02; Status DC Vancomycin HCl (Vancomycin Trough Level) 1 each 1X ONCE MC Last administered on 10/13/18at 10:30; Start 10/13/18 at 10:30; Stop 10/13/18 at 10:31; Status DC Fentanyl Citrate (Fentanyl 2ml Vial) 100 mcg STK-MED ONCE .ROUTE ; Start 10/12/18 at 10:22; Stop 10/12/18 at 10:23; Status DC Midazolam HCl (Versed) 2 mg STK-MED ONCE .ROUTE ; Start 10/12/18 at 10:22; Stop 10/12/18 at 10:23; Status DC Propofol 20 ml @ As Directed STK-MED ONCE IV ; Start 10/12/18 at 10:22; Stop 10/12/18 at 10:23; Status DC Dexamethasone Sodium Phosphate (Decadron) 4 mg STK-MED ONCE .ROUTE ; Start 10/12/18 at 10:22; Stop 10/12/18 at 10:23; Status DC Ondansetron HCl (Zofran) 4 mg STK-MED ONCE .ROUTE ; Start 10/12/18 at 10:22; Stop 10/12/18 at 10:23; Status DC Ondansetron HCl (Zofran) 4 mg PRN Q6HRS PRN IV NAUSEA/VOMITING; Start 10/12/18 at 13:00; Stop 10/13/18 at 12:59; Status DC Fentanyl Citrate (Fentanyl 2ml Vial) 25 mcg PRN Q5MIN PRN IV MILD PAIN; Start 10/12/18 at 13:00; Stop 10/13/18 at 12:59; Status DC Fentanyl Citrate (Fentanyl 2ml Vial) 50 mcg PRN Q5MIN PRN IV MODERATE TO SEVERE PAIN; Start 10/12/18 at 13:00; Stop 10/13/18 at 12:59; Status DC Morphine Sulfate (Morphine Sulfate) 1 mg PRN Q10MIN PRN IV SEVERE PAIN Last administered on 10/12/18at 14:41; Start 10/12/18 at 13:00; Stop 10/13/18 at 12:59; Status DC Ringer's Solution 1,000 ml @ 30 mls/hr Q24H IV ; Start 10/12/18 at 12:50; Stop 10/13/18 at 00:49; Status DC Hydromorphone HCl (Dilaudid) 0.5 mg PRN Q10MIN PRN IV SEV PAIN, Second choice; Start 10/12/18 at 13:00; Stop 10/13/18 at 12:59; Status DC Prochlorperazine Edisylate (Compazine) 5 mg PACU PRN PRN IV NAUSEA, MRX1; Start 10/12/18 at 13:00; Stop 10/13/18 at 12:59; Status DC Multivitamins 10 ml/Thiamine HCl 100 mg/Folic Acid 1 mg/Sodium Chloride 1,011.2 ml @ 100 mls/ hr DAILY IV Last administered on 10/12/18at 14:00; Start 10/12/18 at 14:00; Stop 10/13/18 at 10:49; Status DC Folic Acid (Folic Acid) 1 mg DAILY PO ; Start 10/13/18 at 09:00; Status UNV Lorazepam (Ativan) 2 mg Q6H PO Last administered on 10/12/18at 13:00; Start 10/12/18 at 13:00; Stop 10/13/18 at 00:32; Status DC Lorazepam (Ativan) 2 mg PRN Q1HR PRN IV For CIWA 8-14 Last administered on 10/16/18 14:03; Start 10/12/18 at 23:15 Lorazepam (Ativan) 4 mg PRN Q1HR PRN IV For CIWA 15 or greater Last administered on 10/17/18 20:51; Start 10/12/18 at 23:15 Diphenhydramine HCl (Benadryl) 25 mg PRN Q6HRS PRN PO ITCHING Last administered on 10/14/18 18:26; Start 10/12/18 at 23:15 Quetiapine Fumarate (SEROquel) 50 mg PRN QHS PRN PO sleep Last administered on 10/17/18 00:43; Start 10/12/18 at 23:15 Morphine Sulfate (Morphine Sulfate) 4 mg PRN Q2HR PRN IV SEVERE PAIN Last administered on 10/18/18 09:31; Start 10/13/18 at 06:15 Oxycodone/ Acetaminophen (Percocet 5/325) 1 tab PRN Q4HRS PRN PO SEVERE PAIN Last administered on 10/18/18 09:27; Start 10/13/18 at 06:15 Folic Acid (Folic Acid) 1 mg DAILY PO Last administered on 10/18/18 09:27; Start 10/13/18 at 11:00 Thiamine Mononitrate (Vitamin B-1) 100 mg DAILY PO Last administered on 10/18/18 09:26; Start 10/13/18 at 11:00 Ceftriaxone Sodium (Rocephin) 1 gm Q24H IVP Last administered on 10/17/18 11:41; Start 10/13/18 at 11:00 Vancomycin HCl 1.25 gm/Sodium Chloride 250 ml @ 166.667 mls/hr 1X ONCE IV Last administered on 10/13/18 13:38; Start 10/13/18 at 12:00; Stop 10/13/18 at 13:29; Status DC Vancomycin HCl 1 gm/Sodium Chloride 250 ml @ 250 mls/hr Q8H IV Last administered on 10/18/18 04:56; Start 10/13/18 at 20:00 Vancomycin HCl (Vancomycin Trough Level) 1 each 1X ONCE MC Last administered on 10/15/18at 03:30; Start 10/15/18 at 03:30; Stop 10/15/18 at 03:31; Status DC Lactobacillus Rhamnosus (Culturelle) 1 cap BID PO Last administered on 10/18/18 09:26; Start 10/14/18 at 21:00 Docusate Sodium (Colace) 100 mg BID PO Last administered on 10/18/18at 09:27; Start 10/16/18 at 21:00 Magnesium Hydroxide (Milk Of Magnesia) 2,400 mg PRN DAILY PRN PO CONSTIPATION; Start 10/17/18 at 12:45 Vitals/I & O Vital Sign - Last 24 Hours 10/17/18 10/17/18 10/17/18 10/17/18 11:00 11:42 14:08 14:56 Temp 97.6 98.1 97.6 98.1 Pulse 107 74 Resp 20 22 B/P (MAP) 131/91 (104) 129/92 (104) Pulse Ox 98 96 O2 Delivery Room Air Room Air Room Air Room Air 10/17/18 10/17/18 10/17/18 10/17/18 16:34 18:21 19:00 19:29 Temp 98.0 98.0 Pulse 83 Resp 16 18 B/P (MAP) 140/97 (111) Pulse Ox 96 96 O2 Delivery Room Air Room Air Room Air Room Air 10/17/18 10/17/18 10/17/18 10/17/18 20:25 20:48 21:39 23:00 Temp 98.4 98.4 Pulse 94 Resp 18 16 B/P (MAP) 146/94 (111) Pulse Ox 96 96 94 O2 Delivery Room Air Room Air Room Air Room Air 10/18/18 10/18/18 10/18/18 10/18/18 03:00 07:00 09:27 09:31 Temp 98.4 98.0 98.4 98.0 Pulse 93 77 Resp 16 14 18 18 B/P (MAP) 143/87 (105) 140/94 (109) Pulse Ox 98 95 O2 Delivery Room Air Room Air Room Air Intake and Output 10/17/18 10/17/18 10/18/18 15:00 23:00 07:00 Intake Total 1600 ml 1410 ml 1230 ml Balance 1600 ml 1410 ml 1230 ml DIANE POWERS MD October 18, 2018 09:35
--- NOTE | 2018-10-18 10:10 | PDOC ---
Infectious Disease Note Subjective Subjective Just woke up Pain controlled No F/C/N/V ROS ROS per HPI Vital Sign Vital Signs Vital Signs Date Time Temp Pulse Resp B/P (MAP) Pulse Ox O2 Delivery O2 Flow Rate FiO2 10/18/18 09:31 18 Room Air 10/18/18 07:00 98.0 77 140/94 (109) 95 98.0 Physical Exam PHYSICAL EXAM GENERAL: Propped up in bed, alert, NAD HEENT: Oral cavity clear NECK: Supple LUNGS: Clear. HEART: S1, S2 regular. ABDOMEN: Soft and nontender EXTREMITIES: No gross edema or cyanosis. 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 SKIN: No rash PIV Labs Lab Laboratory Tests Test 10/18/18 08:05 White Blood Count 7.9 x10^3/uL (4.0-11.0) Red Blood Count 4.80 x10^6/uL (4.30-5.70) Hemoglobin 14.3 g/dL (13.0-17.5) Hematocrit 44.1 % (39.0-53.0) Mean Corpuscular Volume 92 fL (79-100) Mean Corpuscular Hemoglobin 30 pg (25-35) Mean Corpuscular Hemoglobin Concent 33 g/dL (31-37) Red Cell Distribution Width 13.1 % (11.5-14.5) Platelet Count 377 x10^3/uL (140-400) Neutrophils (%) (Auto) 68 % (31-73) Lymphocytes (%) (Auto) 19 % (24-48) Monocytes (%) (Auto) 7 % (0-9) Eosinophils (%) (Auto) 6 % (0-3) Basophils (%) (Auto) 0 % (0-3) Neutrophils # (Auto) 5.4 x10^3uL (1.8-7.7) Lymphocytes # (Auto) 1.5 x10^3/uL (1.0-4.8) Monocytes # (Auto) 0.6 x10^3/uL (0.0-1.1) Eosinophils # (Auto) 0.5 x10^3/uL (0.0-0.7) Basophils # (Auto) 0.0 x10^3/uL (0.0-0.2) Sodium Level 140 mmol/L (136-145) Potassium Level 4.4 mmol/L (3.5-5.1) Chloride Level 104 mmol/L (98-107) Carbon Dioxide Level 31 mmol/L (21-32) Anion Gap 5 (6-14) Blood Urea Nitrogen 16 mg/dL (8-26) Creatinine 1.0 mg/dL (0.7-1.3) Estimated GFR (Cockcroft-Gault) 81.6 BUN/Creatinine Ratio 16 (6-20) Glucose Level 99 mg/dL (70-99) Calcium Level 9.1 mg/dL (8.5-10.1) Total Bilirubin 0.2 mg/dL (0.2-1.0) Aspartate Amino Transf (AST/SGOT) 26 U/L (15-37) Alanine Aminotransferase (ALT/SGPT) 37 U/L (16-63) Alkaline Phosphatase 87 U/L (46-116) Total Protein 6.9 g/dL (6.4-8.2) Albumin 2.9 g/dL (3.4-5.0) Albumin/Globulin Ratio 0.7 (1.0-1.7) Micro Microbiology 10/11/18 Blood Culture - Preliminary, Resulted NO GROWTH AFTER 4 DAYS ANAEROBIC RES 1 Final Comment No anaerobic growth in 72 hours. AEROBIC CULT Final Final report AEROBIC RES 1 Final Comment No growth in 56 - 72 hours. GRAM STAIN Final Final report GRAM STAIN RES 1 Final No organisms seen GRAM STAIN RES 2 Final Comment No white blood cells seen. Objective Assessment Right middle finger swelling and pain with infection. s/p I and D on 10/12. cultures neg Tenosynovitis. Right middle finger cellulitis/abscess. Plan Plan of Care Vanc and Rocephin Trough 14.0 Monitor renal function closely Probiotics Local wound care as directed Patient seen, examined, I agree with above. Assessment and plan was coformulated with [employer]. GAGAN CISSE APRN October 18, 2018 10:10 ANTWAN DIAZ MD October 18, 2018 12:30
[2018-10-18] MEDS: cefTRIAXone IV Push 1 GM VIAL. IVP SCH (11:05)
[2018-10-18 11:11] VITALS: BP 132/86
[2018-10-18] MEDS: VANCOMYCIN PER PHARMACY MC PRN ×2 (13:37→13:38)
[2018-10-18] MEDS: ONDANSETRON PF 4 MG/2 ML VIAL. IV PRN (14:54)
[2018-10-18 15:06] VITALS: BP 124/86
--- NOTE | 2018-10-18 17:41 | NUR ---
Patient verb. very upset and anxious, states no one telling him anything and he has not had any visitors. See Ste[facility] per scale, see emar. Continue cares and monitor.
[2018-10-18 19:00] VITALS: BP 126/83
[2018-10-18] MEDS: QUEtiapine 25 MG TABLET. PO PRN (21:39)
[2018-10-18 22:38] VITALS: BP 121/81
[2018-10-19 02:42] VITALS: BP 106/56
[2018-10-19] MEDS: VANCOMYCIN 1 GM in IV NORMAL SALINE 250ML 250 ML IV SCH ×2 (04:13→11:21)
[2018-10-19 06:34] VITALS: BP 100/64
[2018-10-19] MEDS: ONDANSETRON PF 4 MG/2 ML VIAL. IV PRN (08:03)
[2018-10-19] MEDS: MORPHINE SULFATE 4 MG/ML VIAL. IV PRN ×3 (08:04→12:27)
[2018-10-19] MEDS: DOCUSATE SODIUM 100 MG CAPSULE. PO SCH (08:06)
[2018-10-19] MEDS: THIAMINE 100 MG TABLET. PO SCH (08:06)
[2018-10-19] MEDS: LACTOBACILLUS RHAMNOSUS GG 1 CAPSULE. PO SCH (08:06)
[2018-10-19] MEDS: FOLIC ACID 1 MG TABLET. PO SCH (08:07)
--- NOTE | 2018-10-19 10:24 | PDOC ---
Infectious Disease Note Subjective Subjective c/o throbbing pain hasn't been sleeping well past 2 nights Tired No F/C/N/V Vital Sign Vital Signs Vital Signs Date Time Temp Pulse Resp B/P (MAP) Pulse Ox O2 Delivery O2 Flow Rate FiO2 10/19/18 09:57 18 Room Air 10/19/18 06:34 97.7 76 100/64 (76) 98 97.7 10/18/18 22:02 10.0 Physical Exam PHYSICAL EXAM GENERAL: Propped up in bed, alert, NAD HEENT: Oral cavity clear NECK: Supple LUNGS: Clear. HEART: S1, S2 regular. ABDOMEN: Soft and nontender EXTREMITIES: No gross edema or cyanosis. 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 AEROBIC CULT Final Final report AEROBIC RES 1 Final Comment No growth in 56 - 72 hours. GRAM STAIN Final Final report GRAM STAIN RES 1 Final No organisms seen GRAM STAIN RES 2 Final Comment No white blood cells seen. Objective Assessment Right middle finger swelling and pain with infection. s/p I and D on 10/12. cultures neg Tenosynovitis. Right middle finger cellulitis/abscess Etoh dependence ? sub dependence. Plan Plan of Care Pt is ready for dc home per team wound care per ortho Midline and IV ertapenem and doxycycline for 2 weeks,longer depending on clinical response pt refuses adamantly pros and cons discussed next option with doxycycline and doxycycline for 10 days s/e discussed if worse return to hosp probiotics F/U with our clinic in 2 weeks D/W RN D/W Dr Boateng Patient seen, examined, I agree with above Assessment and plan formulated by [facility]. GAGAN CISSE APRN October 19, 2018 10:24 ANTWAN DIAZ MD October 19, 2018 11:15
[2018-10-19 11:11] VITALS: BP 106/64
[2018-10-19] MEDS: cefTRIAXone IV Push 1 GM VIAL. IVP SCH (11:18)
[2018-10-19] MEDS ORDERED: ALPRAZolam 0.5 MG TABLET PO PRN (13:00)
--- NOTE | 2018-10-19 13:00 | PDOC ---
PROGRESS NOTES Chief Complaint Chief Complaint Right middle finger tenosynovitis status post I&D 10/12 Cultures negative History of Present Illness History of Present Illness No complaints Wants to get home by Thursday because it's his 's birthday on thu ESR 39 Normal white count, no fever On vancomycin and Rocephin per ID Need PICC line and IV antibiotics per ID We undressed the wound Packing still In c/o -Dr. Ellington 10/15/18 Patient cannot come here for IV antibiotics ID is thinking about discharge planning Patient is self-pay Plan we'll await ID recommendations Otherwise CPM Mght be able to dc home soon on PO abx - unable to come in for IV abx if even the hospital would pay for it Trial of Xanax-some agitation occasionally Vitals Vitals Vital Signs Date Time Temp Pulse Resp B/P (MAP) Pulse Ox O2 Delivery O2 Flow Rate FiO2 10/19/18 12:27 16 Room Air 10/19/18 11:11 98.0 84 106/64 (78) 95 98.0 10/18/18 22:02 10.0 Physical Exam Physical Exam GENERAL: Propped up in bed, alert, NAD HEENT: Oral cavity clear NECK: Supple LUNGS: Clear. HEART: S1, S2 regular. ABDOMEN: Soft and nontender EXTREMITIES: No gross edema or cyanosis. 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 \CONSTITUTIONAL: No fever or chills EYES: No recent changes SKIN: No rash or itching CARDIOVASCULAR: No chest pain, syncope, palpitations, or edema RESPIRATORY: No SOB or cough GASTROINTESTINAL: No nausea, vomiting or abdominal pain NEUROLOGICAL: No headaches or weakness ENDOCRINE: No cold or heat intolerance GENITOURINARY: No urgency or frequency of urination MUSCULOSKELETAL: No back pain or joint pain LYMPHATICS: No enlarged lymph nodes PSYCHIATRIC: No anxiety or depression Assessment and Plan Assessmemt and Plan Problems Medical Problems: (1) Tenosynovitis of finger Status: Acute Comment Review of Relevant I have reviewed the following items rony (where applicable) has been applied. Labs Laboratory Tests Test 10/18/18 08:05 White Blood Count 7.9 x10^3/uL (4.0-11.0) Red Blood Count 4.80 x10^6/uL (4.30-5.70) Hemoglobin 14.3 g/dL (13.0-17.5) Hematocrit 44.1 % (39.0-53.0) Mean Corpuscular Volume 92 fL (79-100) Mean Corpuscular Hemoglobin 30 pg (25-35) Mean Corpuscular Hemoglobin Concent 33 g/dL (31-37) Red Cell Distribution Width 13.1 % (11.5-14.5) Platelet Count 377 x10^3/uL (140-400) Neutrophils (%) (Auto) 68 % (31-73) Lymphocytes (%) (Auto) 19 % (24-48) Monocytes (%) (Auto) 7 % (0-9) Eosinophils (%) (Auto) 6 % (0-3) Basophils (%) (Auto) 0 % (0-3) Neutrophils # (Auto) 5.4 x10^3uL (1.8-7.7) Lymphocytes # (Auto) 1.5 x10^3/uL (1.0-4.8) Monocytes # (Auto) 0.6 x10^3/uL (0.0-1.1) Eosinophils # (Auto) 0.5 x10^3/uL (0.0-0.7) Basophils # (Auto) 0.0 x10^3/uL (0.0-0.2) Sodium Level 140 mmol/L (136-145) Potassium Level 4.4 mmol/L (3.5-5.1) Chloride Level 104 mmol/L (98-107) Carbon Dioxide Level 31 mmol/L (21-32) Anion Gap 5 (6-14) Blood Urea Nitrogen 16 mg/dL (8-26) Creatinine 1.0 mg/dL (0.7-1.3) Estimated GFR (Cockcroft-Gault) 81.6 BUN/Creatinine Ratio 16 (6-20) Glucose Level 99 mg/dL (70-99) Calcium Level 9.1 mg/dL (8.5-10.1) Total Bilirubin 0.2 mg/dL (0.2-1.0) Aspartate Amino Transf (AST/SGOT) 26 U/L (15-37) Alanine Aminotransferase (ALT/SGPT) 37 U/L (16-63) Alkaline Phosphatase 87 U/L (46-116) Total Protein 6.9 g/dL (6.4-8.2) Albumin 2.9 g/dL (3.4-5.0) Albumin/Globulin Ratio 0.7 (1.0-1.7) Microbiology 10/11/18 Blood Culture - Final, Complete NO GROWTH AFTER 5 DAYS 10/12/18 Anaerobic/Aerobic Culture - Final, Complete 10/12/18 Anaerobic Culture Result 1 (MICHAEL) - Final, Complete 10/12/18 Aerobic Culture - Final, Complete 10/12/18 Aerobic Culture Result 1 (MICHAEL) - Final, Complete 10/12/18 Gram Stain - Final, Complete 10/12/18 Gram Stain Result 1 (MICHAEL) - Final, Complete 10/12/18 Gram Stain Result 2 (MICHAEL) - Final, Complete Medications Current Medications Ceftriaxone Sodium (Rocephin) 1 gm 1X ONCE IVP Last administered on 10/11/18at 22:31; Start 10/11/18 at 22:30; Stop 10/11/18 at 22:31; Status DC Vancomycin HCl 250 ml @ 250 mls/hr 1X ONCE IV ; Start 10/11/18 at 21:45; Stop 10/11/18 at 22:44; Status UNV Diphtheria/ Tetanus/Acell Pertussis (Boostrix) 0.5 ml ONCE ONCE VAX IM Last administered on 10/11/18at 22:34; Start 10/11/18 at 22:30; Stop 10/11/18 at 22:31; Status DC Morphine Sulfate (Morphine Sulfate) 4 mg 1X ONCE IV Last administered on 10/11/18at 22:31; Start 10/11/18 at 22:30; Stop 10/11/18 at 22:31; Status DC Ondansetron HCl (Zofran) 4 mg PRN Q8HRS PRN IV NAUSEA/VOMITING 1ST CHOICE Last administered on 10/11/18at 22:30; Start 10/11/18 at 22:15; Stop 10/12/18 at 22:14; Status DC Morphine Sulfate (Morphine Sulfate) 4 mg PRN Q2HR PRN IV SEVERE PAIN Last administered on 10/12/18at 19:26; Start 10/11/18 at 22:15; Stop 10/12/18 at 22:14; Status DC Vancomycin HCl 1.75 gm/Sodium Chloride 500 ml @ 250 mls/hr 1X ONCE IV Last administered on 10/11/18at 22:35; Start 10/11/18 at 23:00; Stop 10/12/18 at 00:59; Status DC Vancomycin HCl (Vanco Per Pharmacy) 1 each PRN DAILY PRN MC SEE COMMENTS Last administered on 10/18/18at 13:38; Start 10/11/18 at 22:30 Vancomycin HCl 1 gm/Sodium Chloride 250 ml @ 250 mls/hr Q12H IV Last administered on 10/12/18at 23:39; Start 10/12/18 at 11:00; Stop 10/13/18 at 11:02; Status DC Vancomycin HCl (Vancomycin Trough Level) 1 each 1X ONCE MC Last administered on 10/13/18at 10:30; Start 10/13/18 at 10:30; Stop 10/13/18 at 10:31; Status DC Fentanyl Citrate (Fentanyl 2ml Vial) 100 mcg STK-MED ONCE .ROUTE ; Start 10/12/18 at 10:22; Stop 10/12/18 at 10:23; Status DC Midazolam HCl (Versed) 2 mg STK-MED ONCE .ROUTE ; Start 10/12/18 at 10:22; Stop 10/12/18 at 10:23; Status DC Propofol 20 ml @ As Directed STK-MED ONCE IV ; Start 10/12/18 at 10:22; Stop 10/12/18 at 10:23; Status DC Dexamethasone Sodium Phosphate (Decadron) 4 mg STK-MED ONCE .ROUTE ; Start 10/12/18 at 10:22; Stop 10/12/18 at 10:23; Status DC Ondansetron HCl (Zofran) 4 mg STK-MED ONCE .ROUTE ; Start 10/12/18 at 10:22; Stop 10/12/18 at 10:23; Status DC Ondansetron HCl (Zofran) 4 mg PRN Q6HRS PRN IV NAUSEA/VOMITING; Start 10/12/18 at 13:00; Stop 10/13/18 at 12:59; Status DC Fentanyl Citrate (Fentanyl 2ml Vial) 25 mcg PRN Q5MIN PRN IV MILD PAIN; Start 10/12/18 at 13:00; Stop 10/13/18 at 12:59; Status DC Fentanyl Citrate (Fentanyl 2ml Vial) 50 mcg PRN Q5MIN PRN IV MODERATE TO SEVERE PAIN; Start 10/12/18 at 13:00; Stop 10/13/18 at 12:59; Status DC Morphine Sulfate (Morphine Sulfate) 1 mg PRN Q10MIN PRN IV SEVERE PAIN Last administered on 10/12/18at 14:41; Start 10/12/18 at 13:00; Stop 10/13/18 at 12:59; Status DC Ringer's Solution 1,000 ml @ 30 mls/hr Q24H IV ; Start 10/12/18 at 12:50; Stop 10/13/18 at 00:49; Status DC Hydromorphone HCl (Dilaudid) 0.5 mg PRN Q10MIN PRN IV SEV PAIN, Second choice; Start 10/12/18 at 13:00; Stop 10/13/18 at 12:59; Status DC Prochlorperazine Edisylate (Compazine) 5 mg PACU PRN PRN IV NAUSEA, MRX1; Start 10/12/18 at 13:00; Stop 10/13/18 at 12:59; Status DC Multivitamins 10 ml/Thiamine HCl 100 mg/Folic Acid 1 mg/Sodium Chloride 1,011.2 ml @ 100 mls/ hr DAILY IV Last administered on 10/12/18at 14:00; Start 10/12/18 at 14:00; Stop 10/13/18 at 10:49; Status DC Folic Acid (Folic Acid) 1 mg DAILY PO ; Start 10/13/18 at 09:00; Status UNV Lorazepam (Ativan) 2 mg Q6H PO Last administered on 10/12/18at 13:00; Start 10/12/18 at 13:00; Stop 10/13/18 at 00:32; Status DC Lorazepam (Ativan) 2 mg PRN Q1HR PRN IV For CIWA 8-14 Last administered on 10/18/18at 22:08; Start 10/12/18 at 23:15 Lorazepam (Ativan) 4 mg PRN Q1HR PRN IV For CIWA 15 or greater Last administered on 10/17/18 20:51; Start 10/12/18 at 23:15 Diphenhydramine HCl (Benadryl) 25 mg PRN Q6HRS PRN PO ITCHING Last administered on 10/14/18 18:26; Start 10/12/18 at 23:15 Quetiapine Fumarate (SEROquel) 50 mg PRN QHS PRN PO sleep Last administered on 10/18/18 21:39; Start 10/12/18 at 23:15 Morphine Sulfate (Morphine Sulfate) 4 mg PRN Q2HR PRN IV SEVERE PAIN Last administered on 10/19/18 12:27; Start 10/13/18 at 06:15 Oxycodone/ Acetaminophen (Percocet 5/325) 1 tab PRN Q4HRS PRN PO SEVERE PAIN Last administered on 10/18/18 09:27; Start 10/13/18 at 06:15 Folic Acid (Folic Acid) 1 mg DAILY PO Last administered on 10/19/18 08:07; Start 10/13/18 at 11:00 Thiamine Mononitrate (Vitamin B-1) 100 mg DAILY PO Last administered on 10/19/18 08:06; Start 10/13/18 at 11:00 Ceftriaxone Sodium (Rocephin) 1 gm Q24H IVP Last administered on 10/19/18 11:18; Start 10/13/18 at 11:00 Vancomycin HCl 1.25 gm/Sodium Chloride 250 ml @ 166.667 mls/hr 1X ONCE IV Last administered on 10/13/18 13:38; Start 10/13/18 at 12:00; Stop 10/13/18 at 13:29; Status DC Vancomycin HCl 1 gm/Sodium Chloride 250 ml @ 250 mls/hr Q8H IV Last adminis tered on 10/19/18 11:21; Start 10/13/18 at 20:00 Vancomycin HCl (Vancomycin Trough Level) 1 each 1X ONCE MC Last administered o n 10/15/18 03:30; Start 10/15/18 at 03:30; Stop 10/15/18 at 03:31; Status DC Lactobacillus Rhamnosus (Culturelle) 1 cap BID PO Last administered on 10/19/18 08:06; Start 10/14/18 at 21:00 Docusate Sodium (Colace) 100 mg BID PO Last administered on 10/19/18at 08:06; Start 10/16/18 at 21:00 Magnesium Hydroxide (Milk Of Magnesia) 2,400 mg PRN DAILY PRN PO CONSTIPATION; Start 10/17/18 at 12:45 Ondansetron HCl (Zofran) 4 mg PRN Q6HRS PRN IV NAUSEA/VOMITING Last administered on 10/19/18at 08:03; Start 10/18/18 at 14:30 Vitals/I & O Vital Sign - Last 24 Hours 10/18/18 10/18/18 10/18/18 10/18/18 14:23 15:06 17:29 19:00 Temp 97.9 98.1 97.9 98.1 Pulse 80 102 Resp 18 16 18 18 B/P (MAP) 124/86 (99) 126/83 (97) Pulse Ox 94 94 O2 Delivery Room Air Room Air Room Air Room Air 10/18/18 10/18/18 10/18/18 10/18/18 20:00 21:32 22:02 22:38 Temp 98.6 98.6 Pulse 90 Resp 17 B/P (MAP) 121/81 (94) Pulse Ox 94 94 97 O2 Delivery Room Air Room Air Room Air O2 Flow Rate 10.0 10.0 10/19/18 10/19/18 10/19/18 10/19/18 02:42 06:34 08:04 09:57 Temp 98.8 97.7 98.8 97.7 Pulse 96 76 Resp 17 15 16 18 B/P (MAP) 106/56 (73) 100/64 (76) Pulse Ox 96 98 O2 Delivery Room Air Room Air Room Air Room Air 10/19/18 10/19/18 10/19/18 10:27 11:11 12:27 Temp 98.0 98.0 Pulse 84 Resp 16 14 16 B/P (MAP) 106/64 (78) Pulse Ox 95 O2 Delivery Room Air Room Air Room Air Intake and Output 10/18/18 10/18/18 10/19/18 15:00 23:00 07:00 Intake Total 250 ml 760 ml 500 ml Output Total 450 ml Balance 250 ml 760 ml 50 ml DIANE POWERS MD October 19, 2018 12:59
[2018-10-19] MEDS ORDERED: OXYC1TAB15 PO (13:02)
[2018-10-19] MEDS ORDERED: ALPR0.5T6 PO (13:02)
[2018-10-19] MEDS ORDERED: FOLI1TAB16 PO (13:02)
[2018-10-19] MEDS ORDERED: THIA100T22 PO (13:02)
[2018-10-19] MEDS: VANCOMYCIN PER PHARMACY MC PRN (13:59)
[2018-10-19] MEDS ORDERED: DOXY100T PO (14:07)
--- NOTE | 2018-10-19 14:13 | PDOC3 ---
Discharge Summary Visit Information Date of Admission: Oct 12, 2018 Date of Discharge: October 19, 2018 Admitting Diagnosis Comment: Right middle finger tenosynovitis status post I&D 10/12 Cultures negative Final Diagnosis Problems Medical Problems: (1) Tenosynovitis of finger Status: Acute Brief Hospital Course Allergies Allergies Coded Allergies Type Severity Reaction Last Updated Verified No Known Drug Allergies 10/12/18 No Vital Signs Vital Signs Date Time Temp Pulse Resp B/P (MAP) Pulse Ox O2 Delivery O2 Flow Rate FiO2 10/19/18 12:57 16 Room Air 10/19/18 11:11 98.0 84 106/64 (78) 95 98.0 10/18/18 22:02 10.0 Lab Results Laboratory Tests Test 10/18/18 08:05 White Blood Count 7.9 x10^3/uL (4.0-11.0) Red Blood Count 4.80 x10^6/uL (4.30-5.70) Hemoglobin 14.3 g/dL (13.0-17.5) Hematocrit 44.1 % (39.0-53.0) Mean Corpuscular Volume 92 fL (79-100) Mean Corpuscular Hemoglobin 30 pg (25-35) Mean Corpuscular Hemoglobin Concent 33 g/dL (31-37) Red Cell Distribution Width 13.1 % (11.5-14.5) Platelet Count 377 x10^3/uL (140-400) Neutrophils (%) (Auto) 68 % (31-73) Lymphocytes (%) (Auto) 19 % (24-48) Monocytes (%) (Auto) 7 % (0-9) Eosinophils (%) (Auto) 6 % (0-3) Basophils (%) (Auto) 0 % (0-3) Neutrophils # (Auto) 5.4 x10^3uL (1.8-7.7) Lymphocytes # (Auto) 1.5 x10^3/uL (1.0-4.8) Monocytes # (Auto) 0.6 x10^3/uL (0.0-1.1) Eosinophils # (Auto) 0.5 x10^3/uL (0.0-0.7) Basophils # (Auto) 0.0 x10^3/uL (0.0-0.2) Sodium Level 140 mmol/L (136-145) Potassium Level 4.4 mmol/L (3.5-5.1) Chloride Level 104 mmol/L (98-107) Carbon Dioxide Level 31 mmol/L (21-32) Anion Gap 5 (6-14) Blood Urea Nitrogen 16 mg/dL (8-26) Creatinine 1.0 mg/dL (0.7-1.3) Estimated GFR (Cockcroft-Gault) 81.6 BUN/Creatinine Ratio 16 (6-20) Glucose Level 99 mg/dL (70-99) Calcium Level 9.1 mg/dL (8.5-10.1) Total Bilirubin 0.2 mg/dL (0.2-1.0) Aspartate Amino Transf (AST/SGOT) 26 U/L (15-37) Alanine Aminotransferase (ALT/SGPT) 37 U/L (16-63) Alkaline Phosphatase 87 U/L (46-116) Total Protein 6.9 g/dL (6.4-8.2) Albumin 2.9 g/dL (3.4-5.0) Albumin/Globulin Ratio 0.7 (1.0-1.7) Brief Hospital Course Mr. Gallo is a 42 old [sex] who presented with [ ]right middle finger tenosynovitis. IND by Ortho on 10/12. Comanage with ID so far cultures negative. Needed packing on that finger. Recommended doxycycline for 2 weeks and ertapenem via PICC but patient self-pay. He would rather try the by mouth antibiotic. I have Rx him pain medicine and Doxy. Discharge instruction was follow-up with Ortho as instructed Follow-up with ID 2-4 weeks Packing instructions care of Ortho please Patient seen and examined, discussed with RN at bedside and ID Consults performed by ID/Ortho Procedures performed IND 10/12/2018 Discharge Information Condition at Discharge: Improved, Stable Follow Up: Weeks (ff up ID after 2-4 weeks) Disposition/Orders: D/C to Home Scheduled Doxycycline Hyclate (Doxycycline Hyclate) 100 Mg Tablet, 1 TAB PO BID for tenosynovitis finger, #28 Prescribed by: DIANE POWERS on 10/19/18 1407 Folic Acid (Folic Acid) 1 Mg Tablet, 1 MG PO DAILY for mvi MDD 1, #30 Prescribed by: DIANE POWERS on 10/19/18 1302 Thiamine Mononitrate (Vitamin B-1) 100 Mg Tablet, 100 MG PO DAILY for mvi MDD 1, #30 Prescribed by: DIANE POWERS on 10/19/18 1302 Scheduled PRN Alprazolam (Alprazolam) 0.5 Mg Tablet, 0.5 MG PO PRN Q8HRS PRN for ANXIETY / AGITATION MDD 1, #10 Prescribed by: DIANE POWERS on 10/19/18 1302 Oxycodone/Apap 5-325 (Percocet 5-325 Mg Tablet ) 1 Each Tablet, 1 TAB PO PRN Q4HRS PRN for SEVERE PAIN MDD 1, #20 Prescribed by: DIANE POWERS on 10/19/18 1302 DIANE POWERS MD October 19, 2018 14:13
[2018-10-19] MEDS ORDERED: DOXY100C2 PO (15:02)
[2018-10-19] MEDS ORDERED: AMOX1TAB61 PO (15:03)
[2018-10-19] MEDS: oxyCODONE/APAP 5/325 1 TAB TABLET PO PRN (15:10)
--- NOTE | 2018-10-19 16:00 | NUR ---
See orders, Dr. Ellington notified for discharge. Discharge instructions, medications and prescriptions reviewed with patient. He verb. understanding all instructions. Patient wound/I&D pictured and measured prior to discharge with dressing change done after right third finger packing removed per order. Patient supplied with saline cleanser and dressings for change for 3 days. Patient discharge to hotel where he is staying with friend with all belongings, instructions, prescriptions and his tow feeder and cigarettes were returned to him.
== END 2018-10-19 16:00 | disposition home or self-care (01) | DRG 513 ==
LOC: ER 20:07 → 5 NORTH 22:00
PROVIDERS: ADMIT Family Medicine; ATTEND Family Medicine
PROC: 0LD70ZZ Extraction of Right Hand Tendon, Open Approach (ICD-10-PCS; principal; 2018-10-12 11:45)
DX: M65.841 Other synovitis and tenosynovitis, right hand (principal); L02.511 Cutaneous abscess of right hand; L03.011 Cellulitis of right finger; L84 Corns and callosities; F10.20 Alcohol dependence, uncomplicated; F12.90 Cannabis use, unspecified, uncomplicated; F17.210 Nicotine dependence, cigarettes, uncomplicated; Z81.1 Family history of alcohol abuse and dependence
CPT/HCPCS: 36415; 73130; 80048; 80053; 80076; 80202; 82565; 83605; 84145; 84520; 85025; 85651; 87040; 87071; 87075; 90471; 90715; 96365; 96375; A7015; J0696; J1100; J2060; J2250; J2270; J2405; J2704; J3010; J3370; J7030; J7040; J7050; J7120; Q0163; 99285-25; A4461

== ENCOUNTER 2020-01-25 17:46 | Emergency (ER) | payer SELFPAY ==
[~2020-01-25] VITALS: Ht 185.4 cm; Wt 77.2 kg
[~2020-01-25 17:46] MED LIST: ALPR0.5T6 PO; AMOX1TAB61 PO; DOXY100C2 PO; DOXY100T PO; FOLI1TAB16 PO; OXYC1TAB15 PO; THIA100T22 PO
[2020-01-25] MEDS ORDERED: CLIN300C8 PO (18:52)
[2020-01-25] MEDS ORDERED: LIDOCAINE 2%/EPI 1:100,000 20 ML VIAL. INJ ONE (19:00)
[2020-01-25] MEDS ORDERED: CLINDAMYCIN HCL 150 MG CAPSULE. PO ONE (19:00)
--- NOTE | 2020-01-25 19:01 | PHYS DOC ---
Past Medical History Past Medical History: Hypertension Additional Past Medical Histor: No Meds at this time Past Surgical History: Other Smoking Status: Current Every Day Smoker Alcohol Use: Heavy Drug Use: Marijuana General Adult EDM: Chief Complaint: ABSCESS HPI: HPI: Patient is a 44 year old male presents with report of swelling and redness to left elbow x5 days. Reports area of fluctuance which has been draining x2 days. Denies fever or chills. 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 Denies known trauma to the area. Reports last tetanus booster was less than 5 years ago. Review of Systems: Review of Systems: Constitutional: Denies fever or chills Eyes: Denies redness or eye pain HENT: Denies nasal congestion or sore throat Respiratory: Denies cough or shortness of breath Cardiovascular: Denies chest pain or palpitations GI: Denies abdominal pain, nausea, or vomiting : Denies dysuria or hematuria Musculoskeletal: Reports left elbow pain Integument: Reports left elbow swelling, redness, and abscess Neurologic: Denies headache, focal weakness or sensory changes Complete systems were reviewed and found to be within normal limits, except as documented in this note. Current Medications: Current Medications Medications (Trade) Dose Ordered Sig/Yoshi Start Time Stop Time Status Last Admin Dose Admin Clindamycin HCl (Cleocin) 300 mg 1X ONCE 01/25/20 19:00 01/25/20 19:01 Lidocaine/ Epinephrine (LIDOCAINE 2%-EPI 1:100,000 multi-dose) 20 ml 1X ONCE 01/25/20 19:00 01/25/20 19:01 Allergies: Allergies: Allergies Coded Allergies Type Severity Reaction Last Updated Verified No Known Drug Allergies 10/12/18 No Physical Exam: PE: Constitutional: Well developed, well nourished, non-toxic appearance HENT: Normocephalic, atraumatic Eyes: Conjunctiva normal, no discharge Neck: Normal range of motion, supple Cardiovascular: Right radial pulse +2, cap refill less than 2 seconds Lungs & Thorax: No respiratory distress, equal chest rise and fall Skin: Warm, dry, mild erythema and swelling to dorsum of left elbow with induration and 2cm area of fluctuance with purulent drainage Extremities: Left elbow tenderness with ROM, tenderness at site of abscess Neurologic: Alert and oriented X 3, no focal deficits noted Psychologic: Affect normal, judgment normal Current Patient Data: Vital Signs: Vital Signs Date Time Temp Pulse Resp B/P (MAP) Pulse Ox O2 Delivery O2 Flow Rate FiO2 01/25/20 18:07 99.1 102 18 142/98 (113) 98 Room Air 99.1 EKG: EKG: [] Radiology/Procedures: Radiology/Procedures: PROCEDURE: ELBOW LEFT 3V Exam: Left elbow 3 views INDICATION: Swelling, redness, evaluate for retained foreign body TECHNIQUE: Frontal, lateral and oblique views of the left elbow Comparisons: None FINDINGS: Bone mineralization is normal. No acute or healed fractures. Soft tissues are unremarkable. Joint spaces are well-maintained. IMPRESSION: No acute osseous abnormality. No radiopaque foreign body identified. Electronically signed by: Enrique Daigle MD (01/25/2020 8:06 PM) [id number] Course & Med Decision Making: Course & Med Decision Making Pertinent Imaging studies reviewed. (See chart for details) Patient presents with HPI and physical exam concerning for left elbow abscess. X-ray without signs of retained foreign body. Tetanus up-to-date. Abscess I&D performed and dressing applied. Empiric antibiotic initiated. Patient stable for discharge with outpatient follow-up with PCP. Discussed findings and plan with patient, who acknowledges understanding and agreement. Dragon Disclaimer: [facility] Disclaimer: This electronic medical record was generated, in whole or in part, using a voice recognition dictation system. Departure Departure Impression: Primary Impression: Abscess of left elbow Disposition: 01 HOME, SELF-CARE Condition: STABLE Referrals: NO PCP (PCP) Patient Instructions: Abscess, Care After, Abscess, [id number] Additional Instructions: Do not soak your wound. You may shower. Clean wound daily with soap and water. Change dressing 2 times daily. Use over the counter antibiotic ointment with each dressing change. Scripts Hydrocodone/Apap 5-325 (NORCO 5-325 TABLET) 1 Each Tablet 0.5-1 TAB PO PRN Q6HRS PRN for PAIN, #10 TAB 0 Refills Prov: ADI LEDESMA DO 01/25/20 Clindamycin Hcl (CLINDAMYCIN HCL) 300 Mg Capsule 1 CAP PO TID for Infection for 7 Days, #21 CAP Prov: ADI LEDESMA DO 01/25/20 Justicifation of Admission Dx: Justifications for Admission: Justification of Admission Dx: N/A Incision and Drainage Incision and Drainage : Site: Left elbow Blade Size: 11 Progress Verbal consent obtained. Time out performed. Hand hygiene utilized. Wound cleaned with ChloraPrep. Anesthesia obtained via a 25-gauge hypodermic needle with (4) mL's of lidocaine 2% with epinephrine. Incision performed with 11 blade scalpel. Copious irrigation performed with 200mls of normal saline. Patient tolerated procedure well and without difficulty. Empiric antibiotic ointment applied prior to sterile dressing. ADI LEDESMA DO Jan 25, 2020 19:01
[2020-01-25] MEDS ORDERED: HYDROcodone/APAP 5/325MG 1 TAB TABLET PO ONE (19:15)
[2020-01-25] MEDS ORDERED: HYDR-3164 PO (19:22)
[2020-01-25 19:37] VITALS: BP 149/99
--- NOTE | 2020-01-25 20:09 | RAD ---
Exam: Left elbow 3 views INDICATION: Swelling, redness, evaluate for retained foreign body TECHNIQUE: Frontal, lateral and oblique views of the left elbow Comparisons: None FINDINGS: Bone mineralization is normal. No acute or healed fractures. Soft tissues are unremarkable. Joint spaces are well-maintained. IMPRESSION: No acute osseous abnormality. No radiopaque foreign body identified. Electronically signed by: Enrique Daigle MD (01/25/2020 8:06 PM) [id number]
== END 2020-01-25 19:47 | disposition home or self-care (01) ==
LOC: ER 17:46
DX: L02.414 Cutaneous abscess of left upper limb (principal); I10 Essential (primary) hypertension; F17.200 Nicotine dependence, unspecified, uncomplicated; F10.20 Alcohol dependence, uncomplicated; Y90.9 Presence of alcohol in blood, level not specified
CPT/HCPCS: 10060; 73080; 99283; J3490